=== PATIENT | male | born 1970 | race Caucasian/White ===

== ENCOUNTER 2022-12-21 09:25 | Inpatient (IN) ==
--- NOTE | 2022-12-21 09:51 | Emergency Department Note ---
Impression & Plan Alcoholic hepatitis with ascites, Alcohol use disorder, Acute hyponatremia, Liver cirrhosis, Elevated INR ED Provider Note NAME: JIM NAJERA AGE: 52 SEX: M : 1970 ARRIVES VIA: Walk-In INFORMANT: Patient ED PROVIDER(S): Rick Garcia DO CHIEF COMPLAINT: abdominal pain HPI: Patient is a 52-year-old male who presents to the ER for abdominal pain. Pain has been present for the past 5 days. It is diffuse throughout his whole belly and feels like it is expanding and tight. He notes that he does drink about 2 4 Lagrange's a day. He denies any headache or change in vision. He notes that he has been turning yellow for the past 2 days. Denies any dysuria, urgency, or frequency he has never been diagnosed with anything in regards to his liver. PAST MEDICAL HISTORY:See Below PAST SURGICAL HISTORY:See Below FAMILY HISTORY:See Below SOCIAL HISTORY:See Below HOME MEDICATIONS:See Below ALLERGIES:See Below VITALS:See Below PHYSICAL EXAMINATION: GENERAL: Sitting up in bed, alert, well appearing, well nourished, no distress, non-toxic EYE EXAM: normal conjunctiva. Scleral icterus OROPHARYNX: mucous membranes are moist LUNGS: Clear to auscultation. Normal chest wall mechanics HEART: no murmurs, S1 normal and S2 normal ABDOMEN: abdomen soft, non-tender, normo-active bowel sounds, no masses, no rebound or guarding. SKIN: Jaundice throughout UPPER EXTREMITIES: upper extremities are grossly normal. LOWER EXTREMITIES: No pitting edema. NEURO EXAM: Normal sensorium, cranial nerves II-XII grossly intact, normal speech, no gross weakness of arms, no gross weakness of legs. MEDICAL DECISION MAKING: Patient is a 52-year-old male who presents ER for the above-stated complaint. IV was established blood work was obtained. Labs show mild leukocytosis of 14,000. No significant anemia. INR at 2.1. BMP with a hyponatremia at 124. Potassium at 3.4. Lactate was elevated 2.7. Pro-Tremaine at 1.3. Patient has a complete benign abdominal exam. CT abdomen pelvis shows cirrhosis. MELD is elevated in the 30s. Patient was updated at bedside. Last drink was about 2 to 3 days ago. He was discussed with Dr. Bharat Hayes for further evaluation management and treatment. No acute obstruction on CT. Triage Nursing notes reviewed. Limited review of prior medical records performed Vital Signs: reviewed and remarkable for tachy Differential diagnosis: Differential diagnoses includes but is not limited to gastritis, peptic ulcer disease, GERD, gallbladder disease, pancreatitis, small bowel obstruction, appendicitis, diverticulitis, hernia, urinary tract infection, torsion, perforation, trauma, infectious. ER treatment provided: See below Diagnostics interpreted by me include EKG and cardiac monitoring as listed below: -Cardiac Monitoring: An order was placed for continuous cardiac monitoring. The monitor shows a rate of 101 with sinus rhythm. -ECG: none -Laboratory studies:Interpreted by me as stated above in MDM and shown below. Imaging studies: Xrays: As interpreted by me: Portable AP upright 1 view of the chest shows no pneumonia CTs show: CT abdomen pelvis shows no acute pathology per radiology Consultation(s): As described in MDM Procedures:none Critical Care: None Past Med/Surg History Medical History (Updated 12/21/22 @ 13:38 by Rick Garcia DO) No pertinent family history No pertinent past medical history Surgical History (Updated 12/21/22 @ 12:02 by Bharat Hayes MD) No pertinent past surgical history Social History Smoking Status: Unknown if ever smoked Preferred Language: Ukrainian Feels Safe at Home: Yes Allergies Allergies Allergy/AdvReac Type Severity Reaction Status Date / Time No Known Allergies Allergy Unverified 12/21/22 11:18 Home Meds Home Medications Medication Instructions Recorded Confirmed naproxen sodium 220 mg tablet 220 mg PO DAILY Keep pain away 12/21/22 12/21/22 (Aleve) Results & Data (ED) Vital Signs Vital Signs - 24 hr 12/21/22 09:26 12/21/22 10:11 12/21/22 10:11 Temperature 36.7 C Temperature Source Temporal Artery Scan Pulse Rate 118 H Pulse Rate [Apical] 110 H Pulse Rate from SpO2 Sensor Respiratory Rate 18 17 16 Respiratory Effort / Characteristics Non-Labored Spontaneous Respiratory Depth Normal Respiratory Pattern Regular Blood Pressure 139/84 Blood Pressure [Left Arm] 120/87 Blood Pressure Mean 102 Blood Pressure Mean [Left Arm] 98 Pulse Oximetry 97 96 96 Oxygen Delivery Method Room Air Room Air Room Air Sepsis Recent Fever Within 48 Hours No Sepsis New/Unexplained Change in Mental Status No Sepsis Action Taken by Nursing No Action Required 12/21/22 10:04 12/21/22 10:10 12/21/22 10:20 Temperature Temperature Source Pulse Rate 118 H Pulse Rate [Apical] Pulse Rate from SpO2 Sensor 117 H 109 H 107 H Respiratory Rate 21 15 20 Respiratory Effort / Characteristics Respiratory Depth Respiratory Pattern Blood Pressure Blood Pressure [Left Arm] Blood Pressure Mean Blood Pressure Mean [Left Arm] Pulse Oximetry 97 95 95 Oxygen Delivery Method Sepsis Recent Fever Within 48 Hours Sepsis New/Unexplained Change in Mental Status Sepsis Action Taken by Nursing 12/21/22 10:30 12/21/22 10:40 12/21/22 10:54 Temperature Temperature Source Pulse Rate 108 H 110 H Pulse Rate [Apical] Pulse Rate from SpO2 Sensor 104 H 107 H 110 H Respiratory Rate 19 19 15 Respiratory Effort / Characteristics Respiratory Depth Respiratory Pattern Blood Pressure Blood Pressure [Left Arm] Blood Pressure Mean Blood Pressure Mean [Left Arm] Pulse Oximetry 94 95 97 Oxygen Delivery Method Sepsis Recent Fever Within 48 Hours Sepsis New/Unexplained Change in Mental Status Sepsis Action Taken by Nursing 12/21/22 11:00 12/21/22 11:10 12/21/22 11:12 Temperature Temperature Source Pulse Rate 109 H 105 H Pulse Rate [Apical] Pulse Rate from SpO2 Sensor 109 H 105 H Respiratory Rate 23 23 Respiratory Effort / Characteristics Respiratory Depth Respiratory Pattern Blood Pressure 119/81 Blood Pressure [Left Arm] Blood Pressure Mean 95 Blood Pressure Mean [Left Arm] Pulse Oximetry 95 95 Oxygen Delivery Method Sepsis Recent Fever Within 48 Hours Sepsis New/Unexplained Change in Mental Status Sepsis Action Taken by Nursing 12/21/22 11:12 12/21/22 11:20 12/21/22 13:05 Temperature Temperature Source Pulse Rate 104 H 104 H 104 H Pulse Rate [Apical] Pulse Rate from SpO2 Sensor 99 H 105 H Respiratory Rate 15 19 Respiratory Effort / Characteristics Respiratory Depth Respiratory Pattern Blood Pressure Blood Pressure [Left Arm] Blood Pressure Mean Blood Pressure Mean [Left Arm] Pulse Oximetry 95 95 Oxygen Delivery Method Sepsis Recent Fever Within 48 Hours Sepsis New/Unexplained Change in Mental Status Sepsis Action Taken by Nursing Laboratory Data 12/21/22 10:00 12/21/22 10:00 Lab Results 12/21/22 12/21/22 12/21/22 Range/Units 10:00 10:00 10:00 WBC 14.85 H (4.8-10.8) K/ul RBC 3.18 L (4.70-6.10) M/uL Hgb 13.2 L (14.0-18.0) g/dl POC Hgb (14.0-18.0) g/dl Hct 35.2 L (42.0-52.0) % POC Hct (42-52) % MCV 110.7 H (80.0-100.0) fL MCH 41.5 H (25.0-34.0) pg MCHC 37.5 H (32.0-36.0) g/dL RDW Std Deviation 64.4 H (36.4-46.3) fL RDW Coeff of Rohan 15.6 H (11.5-14.5) % Plt Count 170 (130-400) K/uL MPV 11.5 (9.4-12.4) fL Immature Gran % (Auto) 0.8 % Neut % (Auto) 83.4 % Lymph % (Auto) 5.7 % [place] % (Auto) 8.8 % Eos % (Auto) 0.9 % Baso % (Auto) 0.4 % Neut # (Auto) 12.40 H (1.40-6.50) K/uL Lymph # (Auto) 0.84 L (1.2-3.4) K/uL [place] # (Auto) 1.30 H (0.11-0.59) K/uL Eos # (Auto) 0.13 (0-0.50) K/uL Baso # (Auto) 0.06 (0-0.2) K/uL Immature Gran # (Auto) 0.12 (0.01-0.20) K/uL Macrocytosis Present PT 22.2 H (9.0-12.0) Seconds INR 2.1 H (0.9-1.1) APTT 34.0 H (21.0-31.0) Seconds PTT Ratio 1.2 POC Sodium (135-144) mmol/L Sodium 124 L (136-145) mmol/L POC Potassium (3.3-5.0) mmol/L Potassium 3.4 L (3.5-5.1) mmol/L POC Chloride (101-112) mmol/L Chloride 92 L (98-107) mmol/L Carbon Dioxide 22 (21-32) mmol/L POC Total CO2 (24-31) mmol/L Anion Gap 10 (3-11) POC Anion Gap (16-25) mmol/L POC BUN (7-18) mg/dl BUN 23 (6-23) mg/dl Creatinine 1.36 (0.6-1.4) mg/dl POC Creatinine (0.6-1.3) mg/dl Est Cr Clr Drug Dosing 83.2 ml/min Est GFR ( Amer) 68.4 ml/min Est GFR (Non-Af Amer) 59.0 ml/min BUN/Creatinine Ratio 16.9 (10-20) Glucose 113 H (70-99(Fasting)) mg/dl POC Glucose (other) (70-99) mg/dl Lactate (0.4-2.0) mmol/L Calcium 8.1 L (8.6-10.3) mg/dl POC Ioniz Calcium Ernst (1.12-1.32) mmol/l Total Bilirubin 21.6 H (0.2-1.0) mg/dl AST 117 H (13-39) U/L ALT 37 (7-52) U/L Alkaline Phosphatase 116 H (34-104) U/L Troponin I High Sens 11.9 (0-20) pg/ml B-Natriuretic Peptide (0-100) pg/ml Total Protein 5.7 L (6.0-8.3) gm/dl Albumin 2.4 L (3.4-5.0) gm/dl Globulin 3.3 (2.5-4.0) gm/dl Albumin/Globulin Ratio 0.7 L (0.9-2) Lipase TNP SARS-CoV-2, RNA, NAAT (NEGATIVE) 12/21/22 12/21/22 12/21/22 Range/Units 10:00 10:00 10:05 WBC (4.8-10.8) K/ul RBC (4.70-6.10) M/uL Hgb (14.0-18.0) g/dl POC Hgb 15.0 (14.0-18.0) g/dl Hct (42.0-52.0) % POC Hct 44 (42-52) % MCV (80.0-100.0) fL MCH (25.0-34.0) pg MCHC (32.0-36.0) g/dL RDW Std Deviation (36.4-46.3) fL RDW Coeff of Rohan (11.5-14.5) % Plt Count (130-400) K/uL MPV (9.4-12.4) fL Immature Gran % (Auto) % Neut % (Auto) % Lymph % (Auto) % [place] % (Auto) % Eos % (Auto) % Baso % (Auto) % Neut # (Auto) (1.40-6.50) K/uL Lymph # (Auto) (1.2-3.4) K/uL [place] # (Auto) (0.11-0.59) K/uL Eos # (Auto) (0-0.50) K/uL Baso # (Auto) (0-0.2) K/uL Immature Gran # (Auto) (0.01-0.20) K/uL Macrocytosis PT (9.0-12.0) Seconds INR (0.9-1.1) APTT Cancelled (21.0-31.0) Seconds PTT Ratio Cancelled POC Sodium 127 L (135-144) mmol/L Sodium (136-145) mmol/L POC Potassium 3.4 (3.3-5.0) mmol/L Potassium (3.5-5.1) mmol/L POC Chloride 92 L (101-112) mmol/L Chloride (98-107) mmol/L Carbon Dioxide (21-32) mmol/L POC Total CO2 23 L (24-31) mmol/L Anion Gap (3-11) POC Anion Gap 16.0 (16-25) mmol/L POC BUN 21 H (7-18) mg/dl BUN (6-23) mg/dl Creatinine (0.6-1.4) mg/dl POC Creatinine 1.2 (0.6-1.3) mg/dl Est Cr Clr Drug Dosing ml/min Est GFR ( Amer) ml/min Est GFR (Non-Af Amer) ml/min BUN/Creatinine Ratio (10-20) Glucose (70-99(Fasting)) mg/dl POC Glucose (other) 114 H (70-99) mg/dl Lactate (0.4-2.0) mmol/L Calcium (8.6-10.3) mg/dl POC Ioniz Calcium Ernst 0.97 L (1.12-1.32) mmol/l Total Bilirubin (0.2-1.0) mg/dl AST (13-39) U/L ALT (7-52) U/L Alkaline Phosphatase (34-104) U/L Troponin I High Sens (0-20) pg/ml B-Natriuretic Peptide 18 (0-100) pg/ml Total Protein (6.0-8.3) gm/dl Albumin (3.4-5.0) gm/dl Globulin (2.5-4.0) gm/dl Albumin/Globulin Ratio (0.9-2) Lipase SARS-CoV-2, RNA, NAAT (NEGATIVE) 12/21/22 12/21/22 Range/Units 12:24 12:25 WBC (4.8-10.8) K/ul RBC (4.70-6.10) M/uL Hgb (14.0-18.0) g/dl POC Hgb (14.0-18.0) g/dl Hct (42.0-52.0) % POC Hct (42-52) % MCV (80.0-100.0) fL MCH (25.0-34.0) pg MCHC (32.0-36.0) g/dL RDW Std Deviation (36.4-46.3) fL RDW Coeff of Rohan (11.5-14.5) % Plt Count (130-400) K/uL MPV (9.4-12.4) fL Immature Gran % (Auto) % Neut % (Auto) % Lymph % (Auto) % [place] % (Auto) % Eos % (Auto) % Baso % (Auto) % Neut # (Auto) (1.40-6.50) K/uL Lymph # (Auto) (1.2-3.4) K/uL [place] # (Auto) (0.11-0.59) K/uL Eos # (Auto) (0-0.50) K/uL Baso # (Auto) (0-0.2) K/uL Immature Gran # (Auto) (0.01-0.20) K/uL Macrocytosis PT (9.0-12.0) Seconds INR (0.9-1.1) APTT (21.0-31.0) Seconds PTT Ratio POC Sodium (135-144) mmol/L Sodium (136-145) mmol/L POC Potassium (3.3-5.0) mmol/L Potassium (3.5-5.1) mmol/L POC Chloride (101-112) mmol/L Chloride (98-107) mmol/L Carbon Dioxide (21-32) mmol/L POC Total CO2 (24-31) mmol/L Anion Gap (3-11) POC Anion Gap (16-25) mmol/L POC BUN (7-18) mg/dl BUN (6-23) mg/dl Creatinine (0.6-1.4) mg/dl POC Creatinine (0.6-1.3) mg/dl Est Cr Clr Drug Dosing ml/min Est GFR ( Amer) ml/min Est GFR (Non-Af Amer) ml/min BUN/Creatinine Ratio (10-20) Glucose (70-99(Fasting)) mg/dl POC Glucose (other) (70-99) mg/dl Lactate 2.7 H* (0.4-2.0) mmol/L Calcium (8.6-10.3) mg/dl POC Ioniz Calcium Ernst (1.12-1.32) mmol/l Total Bilirubin (0.2-1.0) mg/dl AST (13-39) U/L ALT (7-52) U/L Alkaline Phosphatase (34-104) U/L Troponin I High Sens (0-20) pg/ml B-Natriuretic Peptide (0-100) pg/ml Total Protein (6.0-8.3) gm/dl Albumin (3.4-5.0) gm/dl Globulin (2.5-4.0) gm/dl Albumin/Globulin Ratio (0.9-2) Lipase SARS-CoV-2, RNA, NAAT NEGATIVE (NEGATIVE) Administered Medications Discontinued Medications Phytonadione 10 mg/ Dextrose 51 mls @ 102 mls/hr IV ONE ONE Stop: 12/21/22 12:29 Last Infusion: 12/21/22 13:13 Dose: 0 mls/hr Documented By: Admin: 12/21/22 12:33 Dose: 102 mls/hr Documented By: JEFF Pantoprazole Sodium 40 mg/ (Syringe) 10 mls @ 5 mls/min IV NOW STA Stop: 12/21/22 12:12 Last Admin: 12/21/22 12:33 Dose: 5 mls/min Documented By: JEFF Ioversol (Optiray 320 100ml) 94 ml IV ONCE ONE Stop: 12/21/22 10:57 Last Admin: 12/21/22 10:48 Dose: 94 ml Documented By: KATHI Imaging Data Radiologist's Impression: Abdomen/Pelvis CT 12/21/22 09:43 CT SCAN OF THE ABDOMEN AND PELVIS WITH IV CONTRAST CLINICAL HISTORY: Generalized abdominal pain. COMPARISON STUDY: No priors. TECHNIQUE: Following the IV administration of 94 cc of Optiray 320, CT scan of the abdomen and pelvis is performed from the lung bases to the proximal femora. Images are reviewed in the axial, sagittal, and coronal planes. IV contrast was administered without complication. A dose lowering technique was utilized adhering to the principles of ALARA. CT DOSE: 1640.84 mGy.cm FINDINGS: Lung bases: The heart is top normal in size and without pericardial effusion. There are scattered coronary artery calcifications. The lung bases are clear noting bibasilar scarring/atelectasis. There is a small hiatal hernia. Esopha geal varices are noted. Liver: The contrast-enhanced liver is enlarged, measuring 23.6 cm in length. Attenuation is diminished and markedly heterogeneous indicating steatosis. Morphology is cirrhotic, with hypertrophy of the left lobe and nodularity of the surface contour. There is no intrahepatic biliary ductal dilatation. The hepatic veins and portal veins are patent. Gallbladder: There is nonspecific gallbladder wall thickening and hyperemia, likely related to cirrhosis and ascites. There is no CT evidence of acute cholecystitis. Spleen: The spleen is enlarged, measuring 16.3 cm in length. There are splenic varices, as well as a splenorenal shunt. Pancreas: Unremarkable. Adrenal glands: Unremarkable. Kidneys: The contrast enhanced kidneys are normal in size and without hydronephrosis. The kidneys enhance symmetrically. There is a 3 mm nonobstructing right renal calculus. Abdominal vasculature: The abdominal aorta is normal in course and caliber. Bowel: There is no bowel obstruction. Submucosal fat deposition throughout the colon is nonspecific and has been described in the setting of chronic inflammation. The appendix is well visualized and normal. Peritoneum: There is a small to moderate volume of abdominopelvic ascites. No intraperitoneal free air is seen. Lymphadenopathy: None. Pelvic viscera: The prostate gland is diminutive and heterogeneous. The bladder is decompressed and grossly unremarkable. Skeletal structures: No lytic or blastic lesions are seen. Mild lumbosacral spondylosis is observed. There is a left hemitransitional lumbosacral segment. IMPRESSION: 1. The liver is enlarged, markedly heterogeneous, and cirrhotic in morphology. 2. Hepatic heterogeneity likely represents extensive geographic steatosis. Correlate with serum AFP levels. If there is concern for neoplasm/underlying mass lesion a nonemergent/outpatient MRI of the liver could be considered for further assessment. 3. A [id number] volume of abdominopelvic ascites, esophageal varices, splenomegaly, perisplenic varices, and a splenorenal shunt indicate portal hypertension. 4. Gallbladder wall thickening and hyperemia is likely related to adjacent cirrhosis and ascites. There is no convincing CT evidence of acute cholecystitis . Correlate with clinical and laboratory findings. 5. Right-sided nephrolithiasis. 6. Additional findings as above. ACT 112: Negative or not required by law. Electronically signed by: Angelo Gutierrez M.D. 12/21/2022 11:09 AM Chest X-Ray 12/21/22 09:47 SINGLE VIEW CHEST CLINICAL HISTORY: Dyspnea FINDINGS: An AP, portable, upright chest radiograph is obtained. No prior studies are available for comparison at the time of dictation. The examination is degraded by portable technique and apical lordotic positioning. The card iomediastinal silhouette is top normal for projection. There is elevation of the right hemidiaphragm with associated atelectasis. The lungs and pleural spaces are otherwise clear. No pneumothorax is seen. The bony thorax is grossly intact. IMPRESSION: No active disease in the chest. ACT 112: Negative or not required by law. Electronically signed by: Angelo Gutierrez M.D. 12/21/2022 10:17 AM Discharge Plan Visit Data Chief Complaint: Abdominal Pain Stated Complaint: ABD PAIN, WEAKNESS,SOB ED Provider: Rick Garcia Discharge Problem: Alcoholic hepatitis with ascites, Alcohol use disorder, Acute hyponatremia, Liver cirrhosis, Elevated INR Forms Stand Alone Forms: My [employer] Prescriptions Prescriptions: No Action naproxen sodium [Aleve] 220 mg Tablet 220 mg PO DAILY Referrals Referrals: PCP,NO [Primary Care Provider] -
--- NOTE | 2022-12-21 10:18 | XRay Report ---
SINGLE VIEW CHEST CLINICAL HISTORY: Dyspnea FINDINGS: An AP, portable, upright chest radiograph is obtained. No prior studies are available for c omparison at the time of dictation. The examination is degraded by portable technique and apical lord otic positioning. The cardiomediastinal silhouette is top normal for projection. There is elevation o f the right hemidiaphragm with associated atelectasis. The lungs and pleural spaces are otherwise buster ar. No pneumothorax is seen. The bony thorax is grossly intact. IMPRESSION: No active disease in the chest. ACT 112: Negative or not required by law. Electronically signed by: Angelo Gutierrez M.D. 12/21/2022 10:17 AM
[2022-12-21 10:19] LABS: iSTAT Creatinine 1.2 mg/dl (0.6-1.3); iSTAT Ionized Calcium 0.97 mmol/l (1.12-1.32); iSTAT Potassium 3.4 mmol/L (3.3-5.0)
[2022-12-21 10:28] LABS: Basophils # (auto) 0.06 K/uL (0-0.2); Basophils % (auto) 0.4 %; Eosinophils # (auto) 0.13 K/uL (0-0.50); Eosinophils % (auto) 0.9 %; Hematocrit (blood only) 35.2 % (42.0-52.0); Hemoglobin 13.2 g/dl (14.0-18.0); Immature Granulocytes # (auto) 0.12 K/uL (0.01-0.20); Immature Granulocytes % (auto) 0.8 %; Lymphocytes # (auto) 0.84 K/uL (1.2-3.4); Lymphocytes % (auto) 5.7 %; Mean Corpuscular Hemoglobin 41.5 pg (25.0-34.0); Mean Corpuscular Hgb Conc 37.5 g/dL (32.0-36.0); Mean Corpuscular Volume 110.7 fL (80.0-100.0); Mean Platelet Volume 11.5 fL (9.4-12.4); Monocytes % (auto) 8.8 %; Neutrophils % (auto) 83.4 %; Platelet Count 170 K/uL (130-400); RDW Coefficient of Variation 15.6 % (11.5-14.5); RDW Standard Deviation 64.4 fL (36.4-46.3); Red Blood Count 3.18 M/uL (4.70-6.10); White Blood Count 14.85 K/ul (4.8-10.8)
[2022-12-21 10:44] LABS: Alanine Aminotransferase 37 U/L (7-52); Albumin Globulin Ratio 0.7 (0.9-2); Albumin Level 2.4 gm/dl (3.4-5.0); Alkaline Phosphatase 116 U/L (34-104); Anion Gap 10 (3-11); Aspartate Aminotransferase 117 U/L (13-39); BUN Creatinine Ratio 16.9 (10-20); Bilirubin,Total 21.6 mg/dl (0.2-1.0); Blood Urea Nitrogen 23 mg/dl (6-23); Calcium 8.1 mg/dl (8.6-10.3); Carbon Dioxide 22 mmol/L (21-32); Chloride 92 mmol/L (98-107); Creatinine Clr Calc Pharmacy 83.2 ml/min; Est GFR (African American) 68.4 ml/min; Globulin 3.3 gm/dl (2.5-4.0); Glucose 113 mg/dl (70-99(Fasting)); Potassium 3.4 mmol/L (3.5-5.1); Sodium 124 mmol/L (136-145); Total Protein 5.7 gm/dl (6.0-8.3)
[2022-12-21 10:50] LABS: INR 2.1 (0.9-1.1); Prothrombin Time 22.2 Seconds (9.0-12.0)
[2022-12-21] MEDS ORDERED: OPTIRAY 320 100ml IV ONE (10:56)
[2022-12-21 11:01] LABS: Macrocytosis Present
--- NOTE | 2022-12-21 11:11 | CT Scan Report ---
CT SCAN OF THE ABDOMEN AND PELVIS WITH IV CONTRAST CLINICAL HISTORY: Generalized abdominal pain. COMPARISON STUDY: No priors. TECHNIQUE: Following the IV administration of 94 cc of Optiray 320, CT scan of the abdomen and pelvi s is performed from the lung bases to the proximal femora. Images are reviewed in the axial, sagittal , and coronal planes. IV contrast was administered without complication. A dose lowering technique wa s utilized adhering to the principles of ALARA. CT DOSE: 1640.84 mGy.cm FINDINGS: Lung bases: The heart is top normal in size and without pericardial effusion. There are scattered cor onary artery calcifications. The lung bases are clear noting bibasilar scarring/atelectasis. There is a small hiatal hernia. Esophageal varices are noted. Liver: The contrast-enhanced liver is enlarged, measuring 23.6 cm in length. Attenuation is diminishe d and markedly heterogeneous indicating steatosis. Morphology is cirrhotic, with hypertrophy of the l eft lobe and nodularity of the surface contour. There is no intrahepatic biliary ductal dilatation. T he hepatic veins and portal veins are patent. Gallbladder: There is nonspecific gallbladder wall thickening and hyperemia, likely related to cirrho sis and ascites. There is no CT evidence of acute cholecystitis. Spleen: The spleen is enlarged, measuring 16.3 cm in length. There are splenic varices, as well as a splenorenal shunt. Pancreas: Unremarkable. Adrenal glands: Unremarkable. Kidneys: The contrast enhanced kidneys are normal in size and without hydronephrosis. The kidneys enh ance symmetrically. There is a 3 mm nonobstructing right renal calculus. Abdominal vasculature: The abdominal aorta is normal in course and caliber. Bowel: There is no bowel obstruction. Submucosal fat deposition throughout the colon is nonspecific a nd has been described in the setting of chronic inflammation. The appendix is well visualized and nor mal. Peritoneum: There is a small to moderate volume of abdominopelvic ascites. No intraperitoneal free ai r is seen. Lymphadenopathy: None. Pelvic viscera: The prostate gland is diminutive and heterogeneous. The bladder is decompressed and g rossly unremarkable. Skeletal structures: No lytic or blastic lesions are seen. Mild lumbosacral spondylosis is observed. There is a left hemitransitional lumbosacral segment. IMPRESSION: 1. The liver is enlarged, markedly heterogeneous, and cirrhotic in morphology. 2. Hepatic heterogeneity likely represents extensive geographic steatosis. Correlate with serum AFP l marya. If there is concern for neoplasm/underlying mass lesion a nonemergent/outpatient MRI of the li weston could be considered for further assessment. 3. A [id number] volume of abdominopelvic ascites, esophageal varices, splenomegaly, perispleni c varices, and a splenorenal shunt indicate portal hypertension. 4. Gallbladder wall thickening and hyperemia is likely related to adjacent cirrhosis and ascites. The re is no convincing CT evidence of acute cholecystitis. Correlate with clinical and laboratory findin gs. 5. Right-sided nephrolithiasis. 6. Additional findings as above. ACT 112: Negative or not required by law. Electronically signed by: Angelo Gutierrez M.D. 12/21/2022 11:09 AM
[2022-12-21 11:19] LABS: Troponin I High Sensitivity 11.9 pg/ml (0-20)
--- NOTE | 2022-12-21 11:45 | History & Physical Report ---
Date of Service December 21, 2022 Assessment & Plan (1) Alcoholic hepatitis with ascites: Plan: Alexblaise's discriminant function 68.5, poor prognosis Discussed with Dr Yin regarding prednisolone and will make that decision once patient is seen Pantoprazole 40mg IV for epigastric pain Consult gastroenterology (2) Liver cirrhosis: Plan: No family history. Presumably due to alcohol use MELD 33, 58.1% 90 day survival, although suspect this is somewhat an overestimate given he is in acute hepatitis stage AFP, ferritin, iron studies, CARLOS ENRIQUE, AMA, Anti-SM, ceruloplasmin, acute hepatitis panel, alcohol level (3) Alcohol use disorder: Plan: No symptoms/signs of withdrawal - last alcohol drink 5-6 days ago per patient. Alcohol level pending (4) Acute hyponatremia: Plan: Mild hypervolemia on exam. Will start on Lasix 20mg PO daily and spironolactone 25mg PO daily to help with ascites. (5) Elevated INR: Plan: Vitamin K 10mg IV to revers any nutritional component Repeat INR in AM for more accurate ongoing MELD score (6) Epigastric pain: Plan: Suspect due to ascites but will give IV pantoprazole 40mg daily to help with any gastritis component given high alcohol and caffeine use (7) Hematochezia: Plan: Monitor CBC Plan VTE Prophylaxis - deferred pending treatmenr of INR as unclear if due to liver or nutritional problem on admission Diet - low Na Disposition - admit to med/tele Admission and Anticipated Discharge Date Admission Date: December 21, 2022 History of Present Illness Chief Complaint: Yellow skin Primary Care Provider: NO PCP Charles Donald is a 52 year old male with alcohol use disorder who presents to the ER due to fatigue, abdominal distention/pain, leg swelling, shortness of breath and jaundice. He reports symptoms started 5 days ago with al his symptoms getting progressively worse over the time. His father noticed his skin yellowing starting yesterday. The patient reports only now being able to walk 20-30 yards before becoming too short of breath. He denies any chest pain or palpitations. Takes Aleve intermittently for the abdominal pain (last took this 2 days ago). He has noticed some red blood in his stool yesterday but none today. Associated diarrhea and nausea on and off for the last 2 weeks. One episode of vomiting yesterday. He notes an long history of high alcohol consumption. Mainly of a 6 pack of beer daily. About 1-1.5 years ago he was drinking a bottle of whisky a day which he managed to give up 6-10 months ago. More recently he has been drinking 2 Four Raymundo's a day which he discontinued 5-6 days ago. He last went to alcohol re habilitation 5 years ago. Multiple previous episodes of alcohol withdrawal although he doesn't currently think he has any symptoms. No prior alcohol withdrawal seizures or ICU stays. No fever, chills, respiratory, gastrointestinal or urinary symptoms. Allergies Allergy/AdvReac Type Severity Reaction Status Date / Time No Known Allergies Allergy Unverified 12/21/22 11:18 Home Medications Medication Instructions Recorded Confirmed Type naproxen sodium 220 mg tablet 220 mg PO DAILY Keep pain away 12/21/22 12/21/22 History (Damian) Past Med/Surg History Medical History (Updated 12/22/22 @ 06:49 by Bharat Hayes MD) No pertinent family history No pertinent past medical history Surgical History (Updated 12/21/22 @ 12:02 by Bharat Hayes MD) No pertinent past surgical history Social History Smoking Status: Former smoker Hx Alcohol Use: Yes Alcohol type: beer, wine and hard liquor Hx Substance Use: No Preferred Language: Pashto Client Service Professional Required: No Beliefs That Will Affect Care: None Current Living Situation: Parent Feels Safe at Home: Yes Assistive Devices: Contacts Assistive Devices Comment: Reading glasses Review of Systems Review of Systems: All systems reviewed & are unremarkable except as noted in HPI & below Physical Exam Constitutional: well developed and + ill appearing; + not well nourished and no acute distress Eyes: PERRL; sclerae not anicteric ENMT: Mouth: oral mucous membranes not dry Neck: trachea midline, no thyromegaly Respiratory: normal respiratory effort, lungs clear to auscultation Cardiovascular: Rate/Rhythm: regular rate and regular rhythm Heart Sounds: no murmur Vessels: no JVD Extremities: normal capillary refill and + pedal edema (2+ b/l pedal edema to thigh); no calf tenderness Gastrointestinal (Abdomen): Inspection/Auscultation: + abdomen distended Percussion/Palpation: + abdomen tender (epigastric) and abdomen soft; no guarding and abdomen not rigid Musculoskeletal: no cyanosis or clubbing, extremities motor strength 5/5 Skin: + jaundice Neurologic: moves all extremities and awake; not confused Psychiatric: A+Ox3, euthymic affect Genitourinary: no CVA tenderness Results & Data Results & Data Vital Signs (Past 12 Hours) Vital Signs Temp Pulse Pulse Resp BP BP Pulse Ox 12/21/22 11:20 104 H 19 95 12/21/22 11:12 104 H 15 95 12/21/22 11:12 119/81 12/21/22 11:10 105 H 23 95 12/21/22 11:00 109 H 23 95 12/21/22 10:54 110 H 15 97 12/21/22 10:40 108 H 19 95 12/21/22 10:30 19 94 12/21/22 10:20 20 95 12/21/22 10:10 15 95 12/21/22 10:04 118 H 21 97 12/21/22 10:11 110 H 16 120/87 96 12/21/22 10:11 17 96 12/21/22 09:26 36.7 C 118 H 18 139/84 97 O2 Del Method 12/21/22 11:20 12/21/22 11:12 12/21/22 11:12 12/21/22 11:10 12/21/22 11:00 12/21/22 10:54 12/21/22 10:40 12/21/22 10:30 12/21/22 10:20 12/21/22 10:10 12/21/22 10:04 12/21/22 10:11 Room Air 12/21/22 10:11 Room Air 12/21/22 09:26 Room Air Laboratory Results Abnormal lab results 12/21/22 12/21/22 12/21/22 Range/Units 10:00 10:00 10:00 WBC 14.85 H (4.8-10.8) K/ul RBC 3.18 L (4.70-6.10) M/uL Hgb 13.2 L (14.0-18.0) g/dl Hct 35.2 L (42.0-52.0) % MCV 110.7 H (80.0-100.0) fL MCH 41.5 H (25.0-34.0) pg MCHC 37.5 H (32.0-36.0) g/dL RDW Std Deviation 64.4 H (36.4-46.3) fL RDW Coeff of Rohan 15.6 H (11.5-14.5) % Neut # (Auto) 12.40 H (1.40-6.50) K/uL Lymph # (Auto) 0.84 L (1.2-3.4) K/uL Talbot # (Auto) 1.30 H (0.11-0.59) K/uL PT 22.2 H (9.0-12.0) Seconds INR 2.1 H (0.9-1.1) POC Sodium (135-144) mmol/L Sodium 124 L (136-145) mmol/L Potassium 3.4 L (3.5-5.1) mmol/L POC Chloride (101-112) mmol/L Chloride 92 L (98-107) mmol/L POC Total CO2 (24-31) mmol/L POC BUN (7-18) mg/dl Glucose 113 H (70-99(Fasting)) mg/dl POC Glucose (other) (70-99) mg/dl Calcium 8.1 L (8.6-10.3) mg/dl POC Ioniz Calcium Ernst (1.12-1.32) mmol/l Total Bilirubin 21.6 H (0.2-1.0) mg/dl AST 117 H (13-39) U/L Alkaline Phosphatase 116 H (34-104) U/L Total Protein 5.7 L (6.0-8.3) gm/dl Albumin 2.4 L (3.4-5.0) gm/dl Albumin/Globulin Ratio 0.7 L (0.9-2) 12/21/22 Range/Units 10:05 WBC (4.8-10.8) K/ul RBC (4.70-6.10) M/uL Hgb (14.0-18.0) g/dl Hct (42.0-52.0) % MCV (80.0-100.0) fL MCH (25.0-34.0) pg MCHC (32.0-36.0) g/dL RDW Std Deviation (36.4-46.3) fL RDW Coeff of Rohan (11.5-14.5) % Neut # (Auto) (1.40-6.50) K/uL Lymph # (Auto) (1.2-3.4) K/uL Talbot # (Auto) (0.11-0.59) K/uL PT (9.0-12.0) Seconds INR (0.9-1.1) POC Sodium 127 L (135-144) mmol/L Sodium (136-145) mmol/L Potassium (3.5-5.1) mmol/L POC Chloride 92 L (101-112) mmol/L Chloride (98-107) mmol/L POC Total CO2 23 L (24-31) mmol/L POC BUN 21 H (7-18) mg/dl Glucose (70-99(Fasting)) mg/dl POC Glucose (other) 114 H (70-99) mg/dl Calcium (8.6-10.3) mg/dl POC Ioniz Calcium Ernst 0.97 L (1.12-1.32) mmol/l Total Bilirubin (0.2-1.0) mg/dl AST (13-39) U/L Alkaline Phosphatase (34-104) U/L Total Protein (6.0-8.3) gm/dl Albumin (3.4-5.0) gm/dl Albumin/Globulin Ratio (0.9-2) Diagnostic Findings SINGLE VIEW CHEST CLINICAL HISTORY: Dyspnea FINDINGS: An AP, portable, upright chest radiograph is obtained. No prior studies are available for comparison at the time of dictation. The examination is degraded by portable technique and apical lordotic positioning. The cardiomediastinal silhouette is top normal for projection. There is elevation of the right hemidiaphragm with associated atelectasis. The lungs and pleural spaces are otherwise clear. No pneumothorax is seen. The bony thorax is grossly intact. IMPRESSION: No active disease in the chest. CT SCAN OF THE ABDOMEN AND PELVIS WITH IV CONTRAST CLINICAL HISTORY: Generalized abdominal pain. COMPARISON STUDY: No priors. TECHNIQUE: Following the IV administration of 94 cc of Optiray 320, CT scan of the abdomen and pelvis is performed from the lung bases to the proximal femora. Images are reviewed in the axial, sagittal, and coronal planes. IV contrast was administered without complication. A dose lowering technique was utilized adhering to the principles of ALARA. CT DOSE: 1640.84 mGy.cm FINDINGS: Lung bases: The heart is top normal in size and without pericardial effusion. There are scattered coronary artery calcifications. The lung bases are clear noting bibasilar scarring/atelectasis. There is a small hiatal hernia. Esophageal varices are noted. Liver: The contrast-enhanced liver is enlarged, measuring 23.6 cm in length. Attenuation is diminished and markedly heterogeneous indicating steatosis. Morphology is cirrhotic, with hypertrophy of the left lobe and nodularity of the surface contour. There is no intrahepatic biliary ductal dilatation. The hepatic veins and portal veins are patent. Gallbladder: There is nonspecific gallbladder wall thickening and hyperemia, likely related to cirrhosis and ascites. There is no CT evidence of acute cholecystitis. Spleen: The spleen is enlarged, measuring 16.3 cm in length. There are splenic varices, as well as a splenorenal shunt. Pancreas: Unremarkable. Adrenal glands: Unremarkable. Kidneys: The contrast enhanced kidneys are normal in size and without hydronephrosis. The kidneys enhance symmetrically. There is a 3 mm nonobstructing right renal calculus. Abdominal vasculature: The abdominal aorta is normal in course and caliber. Bowel: There is no bowel obstruction. Submucosal fat deposition throughout the colon is nonspecific and has been described in the setting of chronic inflammation. The appendix is well visualized and normal. Peritoneum: There is a small to moderate volume of abdominopelvic ascites. No intraperitoneal free air is seen. Lymphadenopathy: None. Pelvic viscera: The prostate gland is diminutive and heterogeneous. The bladder is decompressed and grossly unremarkable. Skeletal structures: No lytic or blastic lesions are seen. Mild lumbosacral spondylosis is observed. There is a left hemitransitional lumbosacral segment. IMPRESSION: 1. The liver is enlarged, markedly heterogeneous, and cirrhotic in morphology. 2. Hepatic heterogeneity likely represents extensive geographic steatosis. Correlate with serum AFP levels. If there is concern for neoplasm/underlying mass lesion a nonemergent/outpatient MRI of the liver could be considered for further assessment. 3. A [id number] volume of abdominopelvic ascites, esophageal varices, splenomegaly, perisplenic varices, and a splenorenal shunt indicate portal hypertension. 4. Gallbladder wall thickening and hyperemia is likely related to adjacent cirrhosis and ascites. There is no convincing CT evidence of acute cholecystitis. Correlate with clinical and laboratory findings. 5. Right-sided nephrolithiasis. 6. Additional findings as above. Medications Administered ER Medications Given: None ECG Rate (beats per minute): 108 Rhythm: sinus tachycardia Findings: + PVC Comparison ECG Date: no prior available Code Status & VTE Plan Code Status Full VTE Prophylaxis Plan VTE Prophylaxis will be ordered: No PG Care Time/CCT Total # of Minutes Spent Total Time Spent with Patient: Total time spent is greater than 50% in coordination of care (as documented) at patient's floor/unit and/or counseling patient: Coding Level of Care Code 50627 INT INP/OBS CARE 375MIN Diagnoses Alcoholic hepatitis with ascites K70.11 Liver cirrhosis K74.60 Alcohol use disorder F10.90 Acute hyponatremia E87.1 Elevated INR R79.1 Epigastric pain R10.13 Hematochezia K92.1
[2022-12-21] MEDS ORDERED: PHYTONADIONE 10 MG in DEXTROSE 5% 50 ML IV ONE (12:00)
[2022-12-21] MEDS ORDERED: PANTOprazole 40 MG in SYRINGE 0 ML IV STA (12:11)
--- NOTE | 2022-12-21 12:34 | Electrocardiogram Report ---
Test Reason : Blood Pressure : / mmHG Vent. Rate : 108 BPM Atrial Rate : 108 BPM P-R Int : 184 ms QRS Dur : 086 ms QT Int : 346 ms P-R-T Axes : 049 013 045 degrees QTc Int : 463 ms Sinus tachycardia with occasional Premature ventricular complexes Low voltage QRS Borderline ECG No previous ECGs available Confirmed by Rahul Carter ([id number]) on 12/21/2022 12:33:59 PM Referred By: REFERRED SELF Confirmed By:Rahul Carter
[2022-12-21 13:24] LABS: Partial Thromboplastin Ratio 1.2
[2022-12-21 13:49] LABS: Ferritin 1176.5 ng/ml (8-388); Magnesium 2.5 mg/dl (1.7-2.4)
[2022-12-21 13:53] LABS: Iron 78 mcg/dl (35-175); Unsaturated Iron Binding Cap < 55 mcg/dl (155-355)
[2022-12-21 15:29] LABS: Appearance Urine Cloudy (Clear); Color Urine Orange
[2022-12-21 15:30] LABS: Specific Gravity Urine > 1.030 (1.000-1.030)
[2022-12-21 15:42] LABS: Amphetamines+Metham, Urine Neg (Neg); Barbiturates, Urine Neg (Neg); Benzodiazepine, Urine Neg (Neg); Cocaine, Urine Neg (Neg); MDMA (Ecstacy), Urine Neg (Neg); Methadone, Urine Neg (Neg); Opiate, Urine Neg (Neg); Phencyclidine, Urine Neg (Neg)
[2022-12-21 16:00] LABS: Bacteria Urine Negative (Negative); Epithelial Cell Urine >30 /lpf (0-5); RBC Urine 0-4 /hpf (0-4); WBC Urine >30 /hpf (0-5)
[2022-12-21] MEDS: SPIRONOLACTONE 25 MG TAB PO SCH (16:20)
[2022-12-21] MEDS: FUROSEMIDE 20 MG TAB PO SCH (16:20)
[2022-12-21 16:32] LABS: Adenovirus F 40/41 PCR Not Detected (NotDetected); Astrovirus PCR Not Detected (NotDetected); Campylobacter PCR Not Detected (NotDetected); Cryptosporidium PCR Not Detected (NotDetected); Cyclospora cayetanensis PCR Not Detected (NotDetected); Entamoeba histolytica PCR Not Detected (NotDetected); Enteroaggregative E.coli(EAEC) Not Detected (NotDetected); Enteropathogenic E.coli (EPEC) Not Detected (NotDetected); Enterotoxigenic E.coli (ETEC) Not Detected (NotDetected); Giardia lamblia PCR Not Detected (NotDetected); Norovirus GI/GII PCR Not Detected (NotDetected); Plesiomonas shigelloides PCR Not Detected (NotDetected); Rotavirus A PCR Not Detected (NotDetected); Salmonella PCR Not Detected (NotDetected); Sapovirus PCR Not Detected (NotDetected); Shiga-like Toxin E.coli (STEC) Not Detected (NotDetected); Shigella/Enteroinvasive E.coli Not Detected (NotDetected); Vibrio cholerae PCR Not Detected (NotDetected); Vibrio species PCR Not Detected (NotDetected); Yersinia enterocolitica PCR Not Detected (NotDetected)
[2022-12-21] MEDS: THIAMINE HCL 100 MG in SYRINGE 9 ML IV SCH (20:46)
[2022-12-21] MEDS: PANTOprazole 40 MG in SYRINGE 0 ML IV SCH (20:46)
[2022-12-22 06:41] LABS: Basophils # (auto) 0.04 K/uL (0-0.2); Basophils % (auto) 0.3 %; Eosinophils # (auto) 0.17 K/uL (0-0.50); Eosinophils % (auto) 1.2 %; Hematocrit (blood only) 29.7 % (42.0-52.0); Hemoglobin 11.2 g/dl (14.0-18.0); Immature Granulocytes # (auto) 0.11 K/uL (0.01-0.20); Immature Granulocytes % (auto) 0.8 %; Lymphocytes # (auto) 1.08 K/uL (1.2-3.4); Lymphocytes % (auto) 7.4 %; Mean Corpuscular Hgb Conc 37.7 g/dL (32.0-36.0); Mean Corpuscular Volume 108.8 fL (80.0-100.0); Mean Platelet Volume 11.5 fL (9.4-12.4); Monocytes # (auto) 1.17 K/uL (0.11-0.59); Neutrophils # (auto) 11.98 K/uL (1.40-6.50); Neutrophils % (auto) 82.3 %; Platelet Count 151 K/uL (130-400); RDW Coefficient of Variation 15.6 % (11.5-14.5); RDW Standard Deviation 62.5 fL (36.4-46.3); Red Blood Count 2.73 M/uL (4.70-6.10); White Blood Count 14.55 K/ul (4.8-10.8)
[2022-12-22 07:05] LABS: Albumin Globulin Ratio 0.7 (0.9-2); BUN Creatinine Ratio 18.8 (10-20); Calcium 7.7 mg/dl (8.6-10.3); Creatinine Clr Calc Pharmacy 66.6 ml/min; Est GFR (African American) 52.2 ml/min; Globulin 2.7 gm/dl (2.5-4.0); Potassium 3.7 mmol/L (3.5-5.1); Total Protein 4.7 gm/dl (6.0-8.3)
[2022-12-22 07:21] LABS: INR 1.8 (0.9-1.1); Prothrombin Time 19.3 Seconds (9.0-12.0)
[2022-12-22 07:24] LABS: Vitamin B12 > 1500 pg/ml (180-914)
[2022-12-22] MEDS: SPIRONOLACTONE 25 MG TAB PO SCH (09:57)
[2022-12-22] MEDS: FUROSEMIDE 20 MG TAB PO SCH (09:57)
[2022-12-22] MEDS: PANTOprazole 40 MG in SYRINGE 0 ML IV SCH (09:58)
[2022-12-22] MEDS: THIAMINE HCL 100 MG in SYRINGE 9 ML IV SCH (09:58)
--- NOTE | 2022-12-22 11:09 | Gastrointestinal Consultation ---
Date of Consultation December 22, 2022 Assessment & Plan (1) Acute liver failure: (2) Liver cirrhosis: (3) Alcoholic hepatitis: Plan -Continue to trend DF & MELD scores. Would obtain a CMP & PT/INR daily. -Glucocorticoids deferred at present. -Labs have improved from yesterday. If worsening/not improving, would need to transfer to a tertiary center for acute hepatology/transplant needs. -Patient should be provided with resources for alcohol cessation. -Await infectious hepatitis serologies--may need outpatient immunization for hep A/B pending results. -Await autoimmune liver work-up--though this likely will not result during his hospitalization. -Patient will need an outpatient hepatology team upon discharge. He will need outpatient EGD, AFP, HCC surveillance, and further ongoing hepatology needs. -Would advise a 2 gm sodium-restricted diet. -Ensure patient is moving his bowels regularly. No signs of HE at present. -Avoid NSAIDs. Would limit Tylenol use to <2000 mg daily divided in q 6 hour dosing. Supervising Physician Co-Signing Physician Notes Discussed case in detail and agree with Assessment and plan as per UMAIR Bhatia as noted above Abd: Soft, Distended, +BS Advised patient to avoid all alcohol as it is a known liver toxin He is not currently interested in inpatient or outpatient rehab Continue current therapy and supportive care History of Present Illness Reason for Consultation: Acute liver failure Attending Physician: Freedom Sanches History of Present Illness Patient is a 52 yo male with PMH of significant alcohol abuse. We do not have records of previous labs, testing, medical visits. He presented to the ED due to concerns of worsening jaundice. Upon admission he was noted to have acute liver failure with an INR of 2.1, MELD approaching 40 and DF of 70. The patient notes he quit consuming alcohol 5 days ago. He denies any withdrawal symptoms. He notes heavy consumption of 2 twenty four oz cans of Four Raymundo each evening (14% ABV, one 24 oz can is the equivalent of 5.5 malt liquor beverages). He notes that his father noticed his jaundice first. He denies other medical issues in the past. No known family history of liver disease. Acetaminophen level in ED negative. INR initially 2.1, now 1.8. T bili was 21.6 and now 20.0 this AM. AST currently 101, ALT 34. Alk phos 106. Ammonia 39. MCV 108.8. WBC 14.55. H/H 11.2/29.7. CT abdomen/pelvis indicates cirrhotic appearing liver, splenorenal shunting, esophageal and perisplenic varices, portal HTN. Today's MELD is 33 with a 52.6% estimated total mortality risk. DF is about 54 this AM. Both of these values are improved from 12/21/22. He is not presently on glucocorticoid therapy. CARLOS ENRIQUE, AMA, ASMA pending along with infectious hepatitis A, B, C testing. Patient notes he is physically feeling stronger today and notices improvement in his jaundice. Allergies Allergy/AdvReac Type Severity Reaction Status Date / Time No Known Allergies Allergy Unverified 12/21/22 11:18 Home Medications Medication Instructions Recorded Confirmed Type naproxen sodium 220 mg tablet 220 mg PO DAILY Keep pain away 12/21/22 12/21/22 History (Damian) Patient History Medical History No pertinent family history No pertinent past medical history Surgical History No pertinent past surgical history Social History Smoking Status: Former smoker Hx Alcohol Use: Yes Alcohol type: beer, wine and hard liquor Hx Substance Use: No Preferred Language: Mongolian Communication Ability: Effective Leadership Development Manager Required: No Beliefs That Will Affect Care: None Current Living Situation: Parent Feels Safe at Home: Yes Assistive Devices: None Assistive Devices Comment: Reading glasses Review of Systems Constitutional: + fatigue; no fever and no chills Respiratory: no cough and no dyspnea Cardiovascular: no chest pain Gastrointestinal: no abdominal pain, no nausea, no vomiting, no hematemesis, no change in bowel habits, no blood in stools and no melena Musculoskeletal: no problem reported Integumentary: + yellowing of the skin Psychiatric: no problem reported Hematologic / Lymphatic: no unexplained weight loss Physical Exam Constitutional: WD/WN, vitals as above Respiratory: normal respiratory effort Cardiovascular: Rate/Rhythm: regular rate Gastrointestinal (Abdomen): normal bowel sounds, soft, nontender, no hepatosplenomegaly Musculoskeletal: Head/Neck/Chest: normocephalic Psychiatric: Orientation: alert and oriented x 3 Results & Data Vital Signs (Past 12 Hours) Vital Signs Temp Pulse Pulse Resp BP Pulse Ox O2 Del Method 12/22/22 07:10 36.5 C 102 H 16 108/68 94 Room Air 12/22/22 03:00 36.6 C 96 H 18 120/75 95 Room Air 12/22/22 00:00 111 H PG Care Time/CCT Total # of Minutes Spent Total Time Spent with Patient: Total time spent is greater than 50% in coordination of care (as documented) at patient's floor/unit and/or counseling patient: Coding Level of Care Code 84545 IN/OBS CONSULT LVL 4,60M Diagnoses Acute liver failure K72.00 Liver cirrhosis K74.60 Alcoholic hepatitis K70.10
[2022-12-22] MEDS: PANTOprazole 40 MG TAB PO SCH (20:41)
--- NOTE | 2022-12-22 22:41 | Hospitalist Progress Note ---
Date of Service December 22, 2022 Assessment & Plan (1) Alcoholic hepatitis with ascites: Plan: Maddrey's discriminant function 68.5, poor prognosis Discussed with Dr Yin regarding prednisolone and will make that decision once patient is seen Pantoprazole 40mg IV for epigastric pain Consult gastroenterology: appreciate input. Likely no role at this moment to transfer patient to tertiary center as patient currently is not a transplant candidate given recent alcohol use. [facility] also likely will not have an emergent liver waiting for him. Patient will need to abstain from alachol at least 6 months. Will continue to monitor his PT/INR bilirrubin while he is here. GI recommends to hold off prednisolone unless his Maddrey score remains elevated. Will order U/S paracenthesis study in AM: rule out Spontaneous bacterial peritonitis will also consider placing patient on spironolactone 50 mg and lasix 20 mg, depening on the presence of ascities Had extensive discussion with patient, he is not interested in going to AA meetings, but he will continue to abstain from alcohol. (2) Liver cirrhosis: Plan: No family history. Presumably due to alcohol use MELD 33, 58.1% 90 day survival, although suspect this is somewhat an overestimate given he is in acute hepatitis stage AFP, ferritin, iron studies, CARLOS ENRIQUE, AMA, Anti-SM, ceruloplasmin, acute hepatitis panel, alcohol level (3) Alcohol use disorder: Plan: No symptoms/signs of withdrawal - last alcohol drink 5-6 days ago per patient. (4) Acute hyponatremia: Plan: Mild hypervolemia on exam. Will start on Lasix 20mg PO daily and spironolactone 25mg PO daily to help with ascites. (5) Elevated INR: Plan: Vitamin K 10mg IV to revers any nutritional component continue to calculate daily MELD score (6) Epigastric pain: Plan: Suspect due to ascites but will give IV pantoprazole 40mg daily to help with any gastritis component given high alcohol and caffeine use (7) Hematochezia: Plan: Monitor CBC Plan VTE Prophylaxis - deferred pending treatmenr of INR as unclear if due to liver or nutritional problem on admission Diet - low Na Disposition - admit to med/tele Admission and Anticipated Discharge Date Admission Date: December 21, 2022 Subjective Patient reports feeling better. He states he has been slowly titrating off the alcohol, and has not been drinking for 5 days now. He states he hates getting tremors when he stops drinking, which is why he decided on slowly cutting back on his own. Patient reports having some generalized abdominal discomfort. Review of Systems Review of Systems: All systems reviewed & are unremarkable except as noted in HPI & below Physical Exam Physical Exam: Constitutional: well developed and + ill appearing; + not well nourished and no acute distress Eyes: PERRL; sclerae not anicteric ENMT: Mouth: oral mucous membranes not dry Neck: trachea midline, no thyromegaly Respiratory: normal respiratory effort, lungs clear to auscultation Cardiovascular: Rate/Rhythm: regular rate and regular rhythm Heart Sounds: no murmur Vessels: no JVD Extremities: normal capillary refill and + pedal edema (2+ b/l pedal edema to thigh); no calf tenderness Gastrointestinal (Abdomen): Inspection/Auscultation: + abdomen distended Percussion/Palpation: + abdomen mildly tender (epigastric) and abdomen soft; no guarding and abdomen not rigid Musculoskeletal: no cyanosis or clubbing, extremities motor strength 5/5 Skin: + jaundice Neurologic: moves all extremities and awake; not confused Psychiatric: A+Ox3, euthymic affect Genitourinary: no CVA tenderness Results & Data Results & Data Vital Signs (Past 12 Hours) Vital Signs Temp Pulse Pulse Resp BP Pulse Ox Pulse Ox 12/22/22 19:14 36.6 C 102 H 18 126/77 94 12/22/22 14:01 104 H 12/22/22 18:54 96 12/22/22 15:00 36.6 C 89 18 108/69 89 L 12/22/22 11:49 12/22/22 11:00 36.6 C 105 H 18 120/76 94 O2 Del Method O2 Del Method 12/22/22 19:14 Room Air 12/22/22 14:01 12/22/22 18:54 Room Air 12/22/22 15:00 Room Air 12/22/22 11:49 Room Air 12/22/22 11:00 Room Air PG Care Time/CCT Total # of Minutes Spent Total Time Spent with Patient: Total time spent is greater than 50% in coordination of care (as documented) at patient's floor/unit and/or counseling patient: Coding Level of Care Code 13023 SUB INP/OBS CARE 3/50MIN Diagnoses Alcoholic hepatitis with ascites K70.11 Liver cirrhosis K74.60 Alcohol use disorder F10.90 Acute hyponatremia E87.1 Elevated INR R79.1 Epigastric pain R10.13 Hematochezia K92.1
[2022-12-23] MEDS: PANTOprazole 40 MG TAB PO SCH ×2 (07:55→20:14)
[2022-12-23] MEDS: THIAMINE HCL 100 MG TAB PO SCH (07:56)
[2022-12-23] MEDS: SPIRONOLACTONE 25 MG TAB PO SCH (07:56)
[2022-12-23] MEDS: FUROSEMIDE 20 MG TAB PO SCH (07:56)
[2022-12-23 08:27] LABS: AFP Tumor Marker Serum 3.4 ng/mL (<6.1); Anti Mitochondrial Antibody NEGATIVE (NEGATIVE); Anti Nuclear Antibody Screen NEGATIVE (NEGATIVE); Ceruloplasmin 24 mg/dL (18-36); HBSAG NON-REACTIVE (NON-REACTIVE); Hepatitis A Antibody IgM NON-REACTIVE (NON-REACTIVE); Hepatitis B Core Antibody IgM NON-REACTIVE (NON-REACTIVE); Smooth Muscle Antibody NEGATIVE (NEGATIVE)
[2022-12-23 09:48] LABS: Alanine Aminotransferase 40 U/L (7-52); Albumin Level 2.1 gm/dl (3.4-5.0); Alkaline Phosphatase 117 U/L (34-104); Anion Gap 7 (3-11); Aspartate Aminotransferase 117 U/L (13-39); BUN Creatinine Ratio 23.1 (10-20); Blood Urea Nitrogen 37 mg/dl (6-23); C Reactive Protein 3.72 mg/dl (0-0.5); Calcium 7.8 mg/dl (8.6-10.3); Carbon Dioxide 23 mmol/L (21-32); Chloride 92 mmol/L (98-107); Creatinine Clr Calc Pharmacy 70.8 ml/min; Est GFR (African American) 56.2 ml/min; Est GFR (Non-African American) 48.5 ml/min; Glucose 134 mg/dl (70-99(Fasting)); Potassium 3.8 mmol/L (3.5-5.1); Sodium 122 mmol/L (136-145); Total Protein 5.2 gm/dl (6.0-8.3)
[2022-12-23 09:49] LABS: INR 1.8 (0.9-1.1); Prothrombin Time 18.8 Seconds (9.0-12.0)
[2022-12-23 10:10] LABS: Hematocrit (blood only) 29.5 % (42.0-52.0); Mean Corpuscular Hgb Conc 37.3 g/dL (32.0-36.0); Mean Corpuscular Volume 107.3 fL (80.0-100.0); Mean Platelet Volume 10.6 fL (9.4-12.4); Platelet Count 125 K/uL (130-400); RDW Coefficient of Variation 15.8 % (11.5-14.5); RDW Standard Deviation 59.7 fL (36.4-46.3); Red Blood Count 2.75 M/uL (4.70-6.10); White Blood Count 13.55 K/ul (4.8-10.8)
[2022-12-23 10:12] LABS: Echinocytes 2+; Eosinophils # (auto) 0.15 K/uL (0-0.50); Eosinophils % (auto) 1.1 %; Immature Granulocytes # (auto) 0.15 K/uL (0.01-0.20); Immature Granulocytes % (auto) 1.1 %; Lymphocytes # (auto) 0.65 K/uL (1.2-3.4); Lymphocytes % (auto) 4.8 %; Monocytes % (auto) 6.6 %; Neutrophils % (auto) 86.4 %
[2022-12-23 10:19] LABS: Bilirubin Direct 14.5 mg/dl (0-0.2)
--- NOTE | 2022-12-23 10:24 | Communication Note ---
Date of Service: December 23, 2022 MELD today 33, DF 53.3 Paracentesis was ordered per primary team and is pending. Continue per recommendations on initial GI consult. Will need outpatient hepatology for further work-up/assessment and ongoing HCC monitoring. Alcohol abstinence has been emphasized during this admission.
[2022-12-23 13:09] LABS: Albumin Peritoneal Fluid < 1.5 gm/dl
[2022-12-23 13:15] LABS: Glucose Peritoneal Fluid 138 mg/dl; LDH Peritoneal Fluid 50 U/L; Lipase Peritoneal Fluid 93 U/L; Total Protein Peritoneal Fluid < 3.0 gm/dl
[2022-12-23 13:26] LABS: Appearance Peritoneal Fluid Hazy; Color Peritoneal Fluid Yellow; RBC Peritoneal Fluid Auto < 2000 /uL; WBC Peritoneal Fluid Auto 99 /ul (0-300)
--- NOTE | 2022-12-23 13:57 | Ultrasound Report ---
Ultrasound-guided diagnostic paracentesis INDICATION: Ascites PROCEDURE: Procedure and risks were explained. Informed consent was obtained. A final timeout was com pleted. The right abdomen was prepped and draped in sterile fashion. 1% buffered lidocaine was utiliz ed for skin anesthesia. Utilizing ultrasound guidance, a 5 [place] safety centesis catheter was advanced into the pocket of karmen finnegan. Ultrasound images were obtained. A total of 2.1 L of yellow ascites fluid was removed, with 1 L sent to the lab for analysis. The catheter was removed and Band-Aid applied. The patient tolerated the procedure well. Vital signs will be monitored postprocedure. IMPRESSION: Ultrasound-guided paracentesis as above. Performed, dictated, and signed by Benson Garza PA-C; to be co-signed by Dr. Kash Griffith. Electronically signed by: Kash Griffith M.D. 12/23/2022 2:10 PM
[2022-12-23 14:06] LABS: Basophils, Fluid 3 %; Eosinophils, Fluid 1 %; Lymphocytes, Fluid 25 %; Mono,Macrophage,Mesothelial 67 %; Neutrophils, Fluid 4 %
--- NOTE | 2022-12-23 15:32 | Hospitalist Progress Note ---
Date of Service December 23, 2022 Assessment & Plan (1) Alcoholic hepatitis with ascites: Plan: Alcoholic hepatitis with ascites CTA/P: 1. The liver is enlarged, markedly heterogeneous, and cirrhotic in morphology. 2. Hepatic heterogeneity likely represents extensive geographic steatosis. Correlate with serum AFP levels. If there is concern for neoplasm/underlying mass lesion a nonemergent/outpatient MRI of the liver could be considered for further assessment. 3. A [id number] volume of abdominopelvic ascites, esophageal varices, splenomegaly, perisplenic varices, and a splenorenal shunt indicate portal hypertension. 4. Gallbladder wall thickening and hyperemia is likely related to adjacent cirrhosis and ascites. There is no convincing CT evidence of acute cholecystitis. Correlate with clinical and laboratory findings. 5. Right-sided nephrolithiasis. 6. Additional findings as above. CXR: No acute findings - Paracentesis guided ultrasound performed 12/23. 2.1 L of yellow ascitic fluid was removed, 1 L sent for analysis. Peritoneal fluid: Low RBC, low albumin, LDH 50, glucose 138, lipase 93, 99 white blood cells (normal), 4% neutrophils. Inconsistent with SBP Maddrey discriminant function previously 68.5 on initial assessment with a poor prognosis. Repeat Maddrey function 55 points, remains with poor prognosis. --> Steriods deferred per GI. ?Prednisolone 40 mg daily if Maddrey remains >35 on 12/24 Leukocytosis of 13, slightly down trended Pro-Tremaine 1.65. PCT interpretation limited in the setting of severe liver disease/cirrhosis which can cause baseline elevations independent of infection/sepsis. Clinically is afebrile, peritoneal fluid inconsistent with SBP and does not have other localizable infectious symptoms. Creatinine 1.6Creatinine 12/21/2022 was 1.36, creatinine is currently downtrending from peak of 1.7 CRP 3.72 Folate low at 4.37, repleted Patient with significant symptomatic improvement in breathing and discomfort following 2 L of paracentesis. Currently on spironolactone 25/furosemide 20 mg. - Had extensive discussion with patient, he is not interested in going to AA meetings, but he will continue to abstain from alcohol. Patient does not have a PCP, does not currently have insurance MELD score 12/23: 33 points, 52% mortality Child-Goldsmith: 12 points, class C. 82% perioperative mortality. (2) Liver cirrhosis: Plan: Suspect due to alcohol use CARLOS ENRIQUE negative Antimitochondrial antibody negative Anti-smooth muscle antibody negative Hepatitis C nonreactive AFP normal Ceruloplasmin normal Hep B surface antigen nonreactive, hep B core IgM nonreactive, Anti-HBs pending (3) Alcohol use disorder: Plan: No symptoms/signs of withdrawal - last alcohol drink 5-6 days ago per patient. (4) Acute hyponatremia: Plan: Remains mildly hypervolemic, trace ankle edema and with moderate ascites Symptomatically greatly improved following paracentesis -Mild hypervolemia on exam. Continue Lasix 20mg PO daily and increase spironolactone 50 mg to maintain 40:100 ratio and follow creatinine (5) Elevated INR: Plan: Received vitamin K 10 mg IV previously. Follow for improvement, likely significantly impaired synthetic function due to cirrhosis (6) Epigastric pain: Plan: Significantly improved following paracentesis, suspect that this is pressure effect from his ascites Abdomen is nonrigid and without guarding, and fluid does not suggest SBP (7) Hematochezia: Plan: Monitor CBC Plan VTE Prophylaxis: SCDs while inpatient. Patient is with INR of 1.8 likely reflecting synthetic dysfunction, did receive IV vitamin K for nutritional deficiency. Of note patient's are not protected from auto anticoagulation of cirrhosis. Diet - low Na Disposition - admit to med/tele Admission and Anticipated Discharge Date Admission Date: December 21, 2022 Subjective Charles is seen at the bedside in the afternoon post paracentesis. He reports he has had significant improvement in his abdominal pain following paracentesis, currently does not have pain. Denies fever, chills, sweats. No lightheadedness or dizziness. Inquires whether his ascites will go away and fix itself if he stops drinking. Discussed the nature and natural course of cirrhosis, and emphasized the importance of remaining abstinent from alcohol and connecting to outpatient hepatology and with consistent PCP follow-up. Review of Systems Review of Systems: All systems reviewed & are unremarkable except as noted in Subjective Physical Exam Physical Exam: General: A&Ox3. NAD. Cooperative. HEENT: Atraumatic, normocephalic. Vision/hearing intact, EoM intact. SKin: Jaundice, scleral icterus is present Pulm: CTAB A&P. -wheezes, -rales, -rhonchi. Symmetrical chest rise. No increased work of breathing. No respiratory distress. Cardiac: RRR, -mrg. Radial pulses intact and symmetrical. Abdominal:+Moderate ascites. NT on palpation. No rebound/guarding. Bandaid over paracentesis site, no erythema or leaking. Ext: +pedal edema. Moves extremities equally. No asterixis Results & Data Results & Data Vital Signs (Past 12 Hours) Vital Signs Temp Pulse Pulse Resp BP Pulse Ox O2 Del Method 12/23/22 14:47 36.6 C 97 H 14 116/75 95 Room Air 12/23/22 13:14 36.5 C 97 H 14 124/78 95 Room Air 12/23/22 12:54 36.6 C 96 H 16 134/81 93 Room Air 12/23/22 12:14 36.5 C 101 H 14 138/82 94 Room Air 12/23/22 11:58 36.6 C 97 H 16 117/74 94 Room Air 12/23/22 07:44 96 H 12/23/22 07:34 36.4 C L 99 H 18 137/84 94 Room Air 12/23/22 03:47 36.4 C L 107 H 18 132/80 93 Room Air PG Care Time/CCT Total # of Minutes Spent Total Time Spent with Patient: Total time spent is greater than 50% in coordination of care (as documented) at patient's floor/unit and/or counseling patient: Coding Level of Care Code 80855 SUB INP/OBS CARE 3/50MIN Diagnoses Alcoholic hepatitis with ascites K70.11 Liver cirrhosis K74.60 Alcohol use disorder F10.90 Acute hyponatremia E87.1 Elevated INR R79.1 Epigastric pain R10.13 Hematochezia K92.1
[2022-12-23] MEDS: prednisoLONE sod phosphate 15 MG/5 ML PO SCH (20:14)
[2022-12-24 06:54] LABS: Albumin Globulin Ratio 0.7 (0.9-2); BUN Creatinine Ratio 23.5 (10-20); Bilirubin,Total 21.1 mg/dl (0.2-1.0); Calcium 7.4 mg/dl (8.6-10.3); Creatinine Clr Calc Pharmacy 75.1 ml/min; Est GFR (African American) 61.2 ml/min; Est GFR (Non-African American) 52.8 ml/min; Potassium 4.5 mmol/L (3.5-5.1)
[2022-12-24 08:15] LABS: Hemoglobin 10.5 g/dl (14.0-18.0); Mean Corpuscular Hemoglobin 41.2 pg (25.0-34.0); Mean Corpuscular Hgb Conc 37.5 g/dL (32.0-36.0); Mean Corpuscular Volume 109.8 fL (80.0-100.0); Mean Platelet Volume 11.7 fL (9.4-12.4); Platelet Count 115 K/uL (130-400); RDW Coefficient of Variation 15.4 % (11.5-14.5); RDW Standard Deviation 62.1 fL (36.4-46.3); Red Blood Count 2.55 M/uL (4.70-6.10); White Blood Count 13.55 K/ul (4.8-10.8)
[2022-12-24] MEDS: PANTOprazole 40 MG TAB PO SCH (08:34)
[2022-12-24] MEDS: FUROSEMIDE 20 MG TAB PO SCH (08:35)
[2022-12-24] MEDS: THIAMINE HCL 100 MG TAB PO SCH (08:35)
[2022-12-24] MEDS: prednisoLONE sod phosphate 15 MG/5 ML PO SCH (08:36)
[2022-12-24 08:46] LABS: Echinocytes 2+; Immature Granulocytes # (auto) 0.15 K/uL (0.01-0.20); Immature Granulocytes % (auto) 1.1 %; Lymphocytes % (auto) 3.7 %; Monocytes % (auto) 3.7 %; Neutrophils % (auto) 91.5 %; Target Cells 1+; Tear Drop Cells 1+
[2022-12-24] MEDS ORDERED: SPIRONOLACTONE 25 MG TAB PO SCH (09:00)
--- NOTE | 2022-12-24 16:02 | Discharge Summary ---
Date of Service December 24, 2022 Admission HPI Per Admitting Provider Charles Donald is a 52 year old male with alcohol use disorder who presents to the ER due to fatigue, abdominal distention/pain, leg swelling, shortness of breath and jaundice. He reports symptoms started 5 days ago with al his symptoms getting progressively worse over the time. His father noticed his skin yellowing starting yesterday. The patient reports only now being able to walk 20-30 yards before becoming too short of breath. He denies any chest pain or palpitations. Takes Aleve intermittently for the abdominal pain (last took this 2 days ago). He has noticed some red blood in his stool yesterday but none today. Associated diarrhea and nausea on and off for the last 2 weeks. One episode of vomiting yesterday. He notes an long history of high alcohol consumption. Mainly of a 6 pack of beer daily. About 1-1.5 years ago he was drinking a bottle of whisky a day which he managed to give up 6-10 months ago. More recently he has been drinking 2 Four Raymundo's a day which he discontinued 5-6 days ago. He last went to alcohol rehabilitation 5 years ago. Multiple previous episodes of alcohol withdrawal although he doesn't currently think he has any symptoms. No prior alcohol withdrawal seizures or ICU stays. No fever, chills, respiratory, gastrointestinal or urinary symptoms. Principal Diagnosis Alcohol induced liver failure, cirrhosis Discharge Exam General: A&Ox3. NAD. Cooperative. HEENT: Atraumatic, normocephalic. Vision/hearing intact, EoM intact. SKin: Jaundice, scleral icterus is present Pulm: CTAB A&P. -wheezes, -rales, -rhonchi. Symmetrical chest rise. No increased work of breathing. No respiratory distress. Cardiac: RRR, -mrg. Radial pulses intact and symmetrical. Abdominal:+Moderate ascites. NT on palpation. No rebound/guarding. Bandaid over paracentesis site, no erythema or leaking. Ext: +pedal edema. Moves extremities equally. No asterixis Discharge Data Allergies Allergy/AdvReac Type Severity Reaction Status Date / Time No Known Allergies Allergy Unverified 12/21/22 11:18 Consultations 12/21/22 11:51 ED Decision to Admit Stat 12/21/22 15:27 Consult Gastroenterology Routine Ordered Studies 12/21/22 09:43 CT abd pelvis IV con only Urgent 12/23/22 07:30 IR paracentesis abd w/img US Routine Hospital Course (1) Alcoholic hepatitis with ascites: Charles is a 52-year-old male who presented with jaundice and he was treated for hepatitis due to chronic alcohol use with cirrhosis. Last drink was 6 days prior to admission, while he had had prior withdrawal symptoms had slowly tapered and was not showing any signs of withdrawal at time of discharge. To do as outpatient: 1. Follow-up with gastroenterology. Patient completed 1 week of prednisolone for acute alcoholic hepatitis with DF greater than 50, repeat labs pending prior to gastroenterology level and discontinuation of steroids versus completion of full 28 days pending reevaluation at that time 2. Patient started on Protonix twice daily for episode of slight hematemesis without recurrence and stable hemoglobin. CT did show evidence of esophageal varices, patient was discharged on nadolol. Patient did not have inpatient endoscopy. Bleeding did not recur. Octreotide was not required 3. Continue Lasix 20 mg/spironolactone 50 mg. If well-tolerated can increase this to 40/100 as outpatient 4. Follow-up with gastroenterology and PCP. Patient will ultimately need referral to yeast distiller 5. Continued alcohol cessation. Patient declined AA resources on discharge 6. Repeat assessment for paracentesis. Patient did have 1 L of fluid removed while inpatient with significant improvement/resolution of abdominal discomfort Alcoholic hepatitis with ascites CTA/P: 1. The liver is enlarged, markedly heterogeneous, and cirrhotic in morphology. 2. Hepatic heterogeneity likely represents extensive geographic steatosis. Correlate with serum AFP levels. If there is concern for neoplasm/underlying mass lesion a nonemergent/outpatient MRI of the liver could be considered for further assessment. 3. A ezcnr-[id number] volume of abdominopelvic ascites, esophageal varices, splenomegaly, perisplenic varices, and a splenorenal shunt indicate portal hypertension. 4. Gallbladder wall thickening and hyperemia is likely related to adjacent cirrhosis and ascites. There is no convincing CT evidence of acute cholecystitis. Correlate with clinical and laboratory findings. 5. Right-sided nephrolithiasis. 6. Additional findings as above. CXR: No acute findings - Paracentesis guided ultrasound performed 12/23. 2.1 L of yellow ascitic fluid was removed, 1 L sent for analysis. Peritoneal fluid: Low RBC, low albumin, LDH 50, glucose 138, lipase 93, 99 white blood cells (normal), 4% neutrophils. Inconsistent with SBP Maddrey discriminant function previously 68.5 on initial assessment with a poor prognosis. Repeat Maddrey function 55 points, remains with poor prognosis. --> Steriods prednisolone initiated with reevaluation in 7 days to be done at outpatient Pro-Tremaine 1.65. PCT interpretation limited in the setting of severe liver disease/cirrhosis which can cause baseline elevations independent of infection/sepsis. Clinically is afebrile, peritoneal fluid inconsistent with SBP and does not have other localizable infectious symptoms. Creatinine 1.6Creatinine 12/21/2022 was 1.36, creatinine is currently downtrending from peak of 1.7 CRP 3.72 Folate low at 4.37, repleted. Continue B complex OTC supplementation as outpatient Patient with significant symptomatic improvement in breathing and discomfort following 2 L of paracentesis. Currently on spironolactone 25/furosemide 20 mg. - Had extensive discussion with patient, he is not interested in going to AA meetings, but he will continue to abstain from alcohol. Patient does not have a PCP, does not currently have insurance. Was established with Antoinette Smith PCP and GI follow-up prior to discharge. Insurance being set up with at time of discharge MELD score 12/23: 33 points, 52% mortality Child-Goldsmith: 12 points, class C. 82% perioperative mortality. At time of discharge patient felt clinically well, was not confused, was mentating normally, and had no pain. While he remained jaundiced there were no signs of gallbladder involvement or ductal dilation to suggest obstructive pathology at time of discharge, and with an elevated INR of 1.8 hyperbilirubinemia likely due to hepatic dysfunction with severe alcoholic cirrhosis. As labs were stable patient referred to be discharged home with continued follow-up as an outpatient. Importance of alcohol abstinence was reinforced, patient reports that he is done with alcohol and agreed to remain sober, although did decline AA resources. We will follow-up with hepatology (2) Liver cirrhosis: Suspect due to alcohol use CARLOS ENRIQUE negative Antimitochondrial antibody negative Anti-smooth muscle antibody negative Hepatitis C nonreactive AFP normal Ceruloplasmin normal Hep B surface antigen nonreactive, hep B core IgM nonreactive, Anti-HBs pendi ng (3) Alcohol use disorder: No symptoms/signs of withdrawal - last alcohol drink 5-6 days ago per patient. Prior symptoms of tremors with withdrawal, none at time of hospitalist reevaluation and no symptoms of withdrawal at discharge (4) Acute hyponatremia: Remains mildly hypervolemic, trace ankle edema and with moderate ascites -Mild hypervolemia on exam. Continue Lasix 20mg PO daily and increase spironolactone 50 mg to maintain 40:100 ratio and follow creatinine. Uptitrate as able as outpatient (5) Elevated INR: Received vitamin K 10 mg IV previously. Follow for improvement, likely significantly impaired synthetic function due to cirrhosis (6) Epigastric pain: Significantly improved following paracentesis, suspect that this is pressure effect from his ascites Abdomen is nonrigid and without guarding, and fluid does not suggest SBP (7) Hematochezia: Monitor CBC Plan VTE Prophylaxis: SCDs while inpatient. Patient is with INR of 1.8 likely reflecting synthetic dysfunction, did receive IV vitamin K for nutritional deficiency. He is not protected from DVT from auto anticoagulation of cirrhosis, discussed with patient. Pharmacal prophylaxis not recommended in the setting of varices and initial episode of bleeding Total Time Total Time Spent Total Time Spent (In Minutes): Time spend day of discharge 75 minutes including direct patient care, documentation, review of labs and images, and coordination of care. Discharge Plan Discharge Items Patient Disposition: Home - Self-Care Reason For Visit: ACUTE LIVER FAILURE,HYPONATREMIA Discharge Diagnosis: Acute liver failure, alcohol induced hepatitis Activity: Resume your previous activity Non-emergency contact: Primary Care Provider Call non-emergency contact if: you have any medication questions and your symptoms worsen Follow-up/Referrals: Benson Bills CRNP [Nurse Practitioner] - 01/06/23 10:20 am (hospital follow up appointment January 06 at 10:20 Establish Care visit 2022 @ 1:45 p.m. Please arrive 15 minutes prior to appointment time ) Anastasia Corrales CRNP [Nurse Practitioner] - 12/30/22 3:40 pm (GI follow up) PCP,NO [Primary Care Provider] - Diet: Low Sodium (2gm) Addtl Attending Provider Instructions: You have been prescribed blood pressure/fluid medicines to help control the f luid accumulation in your abdomen. You have been prescribed furosemide 20 mg, and spironolactone 50 mg. Please take furosemide 20 mg once daily and spironolactone 50 mg once daily. These medication can cause low blood pressure, if you experience lightheadedness/dizziness or low blood pressure please do not take your daily dose of this medication and contact your primary care provider for recommendations. Your liver specialist will likely increase this dose as an outpatient if you are tolerating it well. You have been prescribed a antiacid medication to help protect your stomach from ulcers and bleeding. Please take Protonix 40 mg twice daily for [address] scan showed evidence of abnormal blood vessels in the esophagus called varices. These can cause life-threatening bleeding. To help prevent bleeding you have been prescribed a blood pressure medicine called nadolol. Please take nadolol 20 mg daily for 1 week. If you have lightheadedness/dizziness, heart rate under 60 bpm, low blood pressure, or are passing out please hold this medication and discuss adjustment with your follow-up providers You showed evidence of acute liver inflammation likely due to alcohol while in the hospital. A score of hepatitis severity and illness called the Madrey discriminant function was calculated, and based on this measurement you were recommended for a course of steroid medications. You have been prescribed prednisolone 40 mg daily. Please take prednisone 40 mg daily, and follow-up with your vp security for repeat blood work in approximately 1 week. If this medication appears to have benefited you it can be continued for 28 days total, if no improvement is seen within 1 week then this medication should be discontinued. Your liver enzymes including bilirubin were high during admission. You did not show any signs of gallbladder disease or stones causing these elevated levels, you did show an abnormal liver with both inflammation and cirrhosis. While these levels were high, they were stable and began to decrease slightly on day of discharge. It is reasonable to follow these as an outpatient, and connect with a vp security and ultimately yeast distiller as an outpatient. If you experience any new or worsening symptoms, especially fever, chills, worsening abdominal pain, lightheadedness, dizziness, confusion, or tremor/shaking please call your PCP for recommendations, or call 911 for reevaluation in the emergency department if symptoms are severe or you are very concerned. It is critically important to remain abstinent from alcohol. Continued alcohol use will both cause continued liver damage, and limit/prevent transplant evaluation. Due to your liver dysfunction is recommended that you avoid Tylenol. In some cases it is okay with a physician's permission to take Tylenol up to 2000 mg/day with underlying liver disease, but this should be discussed with your doctor prior to taking Tylenol and should never be done with any recent alcohol use. An appointment for follow-up with post catheter neuro and neurology and a new PCP have been scheduled as above. If need to make any adjustments to these appointments, please contact their office at the phone numbers above. If you develop any new or worsening symptoms including fever, chills, sweats, chest pain, chest pressure, difficulty breathing, uncontrolled nausea/vomiting, rash, wheezing, passing out or nearly passing out, bleeding, black/bloody bowel movements, or other new or concerning symptoms please call your primary care physician, or call 911 for re-evaluation in the emergency department if you are very concerned. Pending Studies at Discharge: No Stand-Alone Forms: My [facility] [employer] [facility], Smoking Cessation Medications and DC Order Prescriptions: New spironolactone 25 mg Tablet 50 mg PO QAM 30 Days Qty: 60 0RF pantoprazole 40 mg Tablet,Delayed Release (Dr/Ec) 40 mg PO BID 60 Days Qty: 120 0RF furosemide 20 mg Tablet 20 mg PO QAM 30 Days Qty: 30 0RF prednisolone 15 mg/5 mL solution 40 mg PO QAM Qty: 100 3RF nadolol 20 mg tablet 20 mg PO DAILY 14 Days Qty: 14 1RF Continued naproxen sodium [Aleve] 220 mg Tablet 220 mg PO DAILY Discharge Orders: Discharge Order (Routine); Ordered 12/24/22 Ordered By: Justen Belle Admission Data Admit Date/Time: 12/21/22 11:51 Attending Provider: Justen Belle Admit Provider: Bharat Hayes Primary Care Provider: PCP,NO Other Providers: Bharat Hayes ; Jefry Yin Coding Level of Care Code 14318 INP/OBS DISCH >30 MIN Diagnoses Alcoholic hepatitis with ascites K70.11 Liver cirrhosis K74.60 Alcohol use disorder F10.90 Acute hyponatremia E87.1 Elevated INR R79.1 Epigastric pain R10.13 Hematochezia K92.1
== END 2022-12-24 16:27 | disposition home or self-care (01) | DRG 432 ==
LOC: ED 09:25 → SUATTDRO 11:51 → 2N 11:51

== ENCOUNTER 2022-12-31 14:07 | Inpatient (IN) ==
--- NOTE | 2022-12-31 16:17 | Emergency Department Note ---
Impression & Plan Hypotension, Leukocytosis, Chronic liver failure, Jaundice, Ascites ED Provider Note NAME: JIM NAJERA AGE: 52 SEX: M : 1970 ARRIVES VIA: Walk-In INFORMANT: [Patient] ED PROVIDER(S): Angelo Garvin MD CHIEF COMPLAINT: Abdominal pain HISTORY OF PRESENT ILLNESS: GI clinic documentation... Patient is a 52 yo male recently hospitalized in acute liver failure with alcoholic hepatitis and new findings of cirrhosis. His initial presentation to the hospital indicated a MELD score approaching 40 and a DF of around 70. INR was 2.1 on admission. T bili >20. He had a paracentesis while hospitalized for relief of his symptoms but also to exclude SBP. He declined intervention for alcohol cessation. He had an elevated procalcitonin during admission. Glucocorticoids were deferred, however they were initiated prior to discharge as his labs were not improving. He was also initiated on Nadolol, Aldactone, & Furosemide prior to discharge. Patient's last labs were on 12/23/22 prior to his discharge. Patient was to be arranged with hepatology after the hospital, mickey tamez presents to clinic today for further recommendations. He notes he was given 2 weeks of Prednisolone prior to discharge. He has abstained from alcohol for the past 2 weeks. --------- The patient is a 52-year-old male with alcoholic liver disease. He was recently in our hospital for this issue. The patient's jaundice improved and his edema improved. He states that in the last couple of days, things have again worsened. He is now yellow when he looks in the mirror, his legs are swollen. He has some right-sided abdominal pain. Patient did see GI yesterday. They were concerned about his worsening situation. He was referred to the ER today for a work-up, there was concern for the possibility of spontaneous bacterial peritonitis. The patient does not have any fever. There has been no cough or congestion. He does complain of some lower right sided abdominal pain that is worse with ambulation. He has been weak. No chest pain. His urine is dark in color. He is able to eat and drink, no vomiting. PMHx/PSHx: See Below SOCIAL HISTORY: See Below. PHYSICAL EXAM: GENERAL: Patient is in no acute distress. HEENT: No acute trauma, normocephalic atraumatic, mucous membranes dry, no nasal congestion. NECK: No stridor, no adenopathy, no meningismus, trachea is midline. LUNGS: Clear to auscultation bilaterally, no wheeze, no rhonchi, breath sounds equal. HEART: Without murmurs gallops or rubs, regular rate and rhythm. ABDOMEN: Soft, nontender, bowel sounds positive, no peritonitis. Abdominal distention noted. EXTREMITIES: No cyanosis, moderate bilateral pedal edema, full range of motion of all the joints without pain or difficulty, no signs for acute trauma. NEUROLOGIC: Oriented x 3, no acute motor or sensory deficits, no focal weakness. SKIN: No rash, moderate jaundice, no diaphoresis. DIFFERENTIAL DIAGNOSIS: Worsening liver disease, spontaneous bacterial peritonitis, diverticulitis or colitis, intra-abdominal bleeding, renal failure or electrolyte abnormality, viral infection, UTI, among others. EMERGENCY DEPARTMENT COURSE/PROCEDURES: Prior/Outside records reviewed: Recent GI note. ECG per my interpretation: Indication was weakness and dizziness. The ECG sh ows a sinus bradycardia with a rate of 55. There is no ST elevation, no PVCs. The QTc is 407. Continuous Cardiac Monitoring per my interpretation: An order was placed for continuous cardiac monitoring. The monitor shows a rate of 59 with sinus bradycardia. Critical Care Note: I have personally spent 51 minutes of critical care time in the direct management of this patient. This includes bedside care, interpretation of diagnostic studies, and testing, discussion with consultants, patient, and family members, and other required patient management activities. This 51 minutes is in excess of all separately billable procedures. MEDICAL DECISION MAKING: There is a significant leukocytosis at 21,000, this is an increase for the patient. This elevation could be consistent with infection or his recent steroid use. There was a normal hemoglobin. Platelet count was low at 124. The thrombocytopenia was not a new finding. A coagulopathy was seen consistent with his liver disease. Sodium was low 126, this appears chronic as of late. Lactic acid level was not not elevated making severe sepsis less likely. Liver enzyme elevations were noted, the bilirubin was 22. The patient's bilirubin value is similar to previous testing. Albumin was low at 2. Urinalysis did not show true findings of infection. COVID test returned negative. Chest film per my review did not show mediastinal widening, pneumonia or pneumothorax. Abdominal and pelvis CT shows ascites, no acute surgical process by CT imaging. On exam, the patient was jaundiced and hypotensive. He appeared clinically dehydrated. There was no peritonitis. The patient received IV saline, 2.5 L. This saline dose was given based on a 30 cc/kg bolus for the possibly of sepsis. The ideal body weight was used for the fluid calculation. The patient was given IV cefepime as empiric antibiotic coverage. The patient's blood pressure has improved although, it remains somewhat low. He does not seem in any distress. He is resting comfortably. He is not in pain. The patient does require a hospital stay. I did speak with case management, the on-call hospitalist has been consulted. Further work-up is warranted. DISPOSITION: Patient's presentation and findings warrant a hospital stay. Past Med/Surg History Medical History Acute hyponatremia Alcohol use disorder Alcoholic hepatitis Alcoholic hepatitis with ascites Elevated INR Surgical History No pertinent past surgical history Social History Smoking Status: Never smoker Hx Alcohol Use: Yes Alcohol type: beer, wine and hard liquor Hx Substance Use: No Preferred Language: [place] Communication Ability: Effective Assistant Professor Of Communication Required: No Beliefs That Will Affect Care: None Current Living Situation: Parent Feels Safe at Home: Yes Assistive Devices: None Allergies Allergies Allergy/AdvReac Type Severity Reaction Status Date / Time No Known Allergies Allergy Verified 12/31/22 18:48 Home Meds Previous Rx's Medication Instructions Recorded furosemide 20 mg tablet 20 mg PO QAM 30 days #30 tabs 12/24/22 nadolol 20 mg tablet 20 mg PO DAILY 14 days #14 tabs 12/24/22 pantoprazole 40 mg tablet,delayed 40 mg PO BID 60 days #120 tabs 12/24/22 release prednisolone 15 mg/5 mL oral 40 mg (13.3333 mL) PO QAM #100 mL 12/24/22 solution spironolactone 25 mg tablet 50 mg PO QAM 30 days #60 tabs 12/24/22 Results & Data (ED) Vital Signs Vital Signs - 24 hr 12/31/22 14:20 12/31/22 16:27 12/31/22 16:25 Temperature 36.8 C Temperature Source Temporal Artery Scan Pulse Rate 55 L 59 L 58 L Pulse Rate from SpO2 Sensor 59 L Respiratory Rate 18 16 Respiratory Effort / Characteristics Non-Labored Respiratory Depth Normal Blood Pressure 82/57 L Blood Pressure Mean 65 Pulse Oximetry 98 99 Oxygen Delivery Method Room Air Sepsis Recent Fever Within 48 Hours No Sepsis New/Unexplained Change in Mental Status No Sepsis Action Taken by Nursing No Action Required 12/31/22 16:30 12/31/22 16:30 12/31/22 16:40 Temperature Temperature Source Pulse Rate 58 L 59 L Pulse Rate from SpO2 Sensor 58 L 59 L Respiratory Rate 15 19 Respiratory Effort / Characteristics Respiratory Depth Blood Pressure 90/58 L Blood Pressure Mean 76 Pulse Oximetry 99 100 Oxygen Delivery Method Sepsis Recent Fever Within 48 Hours Sepsis New/Unexplained Change in Mental Status Sepsis Action Taken by Nursing 12/31/22 16:50 12/31/22 17:00 12/31/22 17:10 Temperature Temperature Source Pulse Rate 57 L 57 L 58 L Pulse Rate from SpO2 Sensor 57 L 53 L Respiratory Rate 18 17 16 Respiratory Effort / Characteristics Respiratory Depth Blood Pressure Blood Pressure Mean Pulse Oximetry 97 97 Oxygen Delivery Method Sepsis Recent Fever Within 48 Hours Sepsis New/Unexplained Change in Mental Status Sepsis Action Taken by Nursing 12/31/22 17:11 12/31/22 17:11 12/31/22 17:20 Temperature Temperature Source Pulse Rate 59 L Pulse Rate from SpO2 Sensor 59 L 59 L Respiratory Rate 19 23 Respiratory Effort / Characteristics Respiratory Depth Blood Pressure 91/57 L Blood Pressure Mean 76 Pulse Oximetry 98 97 Oxygen Delivery Method Sepsis Recent Fever Within 48 Hours Sepsis New/Unexplained Change in Mental Status Sepsis Action Taken by Nursing 12/31/22 17:30 12/31/22 17:30 12/31/22 17:40 Temperature Temperature Source Pulse Rate 58 L 58 L Pulse Rate from SpO2 Sensor 59 L 59 L Respiratory Rate 15 23 Respiratory Effort / Characteristics Respiratory Depth Blood Pressure 75/56 L Blood Pressure Mean 66 Pulse Oximetry 97 97 Oxygen Delivery Method Sepsis Recent Fever Within 48 Hours Sepsis New/Unexplained Change in Mental Status Sepsis Action Taken by Nursing 12/31/22 17:50 12/31/22 18:00 12/31/22 18:01 Temperature Temperature Source Pulse Rate 57 L 56 L Pulse Rate from SpO2 Sensor 57 L 55 L Respiratory Rate 15 24 Respiratory Effort / Characteristics Respiratory Depth Blood Pressure 96/53 L Blood Pressure Mean 65 Pulse Oximetry 98 99 Oxygen Delivery Method Sepsis Recent Fever Within 48 Hours Sepsis New/Unexplained Change in Mental Status Sepsis Action Taken by Nursing 12/31/22 18:01 12/31/22 18:10 12/31/22 18:25 Temperature Temperature Source Pulse Rate 57 L 56 L 62 Pulse Rate from SpO2 Sensor 57 L 55 L Respiratory Rate 20 18 13 Respiratory Effort / Characteristics Respiratory Depth Blood Pressure Blood Pressure Mean Pulse Oximetry 98 97 Oxygen Delivery Method Sepsis Recent Fever Within 48 Hours Sepsis New/Unexplained Change in Mental Status Sepsis Action Taken by Nursing 12/31/22 18:30 12/31/22 18:30 12/31/22 18:40 Temperature Temperature Source Pulse Rate 54 L 55 L Pulse Rate from SpO2 Sensor 54 L Respiratory Rate 17 18 Respiratory Effort / Characteristics Respiratory Depth Blood Pressure 98/66 L Blood Pressure Mean 75 Pulse Oximetry 97 Oxygen Delivery Method Sepsis Recent Fever Within 48 Hours Sepsis New/Unexplained Change in Mental Status Sepsis Action Taken by Nursing 12/31/22 18:50 12/31/22 19:03 12/31/22 19:08 Temperature Temperature Source Pulse Rate 57 L 57 L Pulse Rate from SpO2 Sensor 56 L Respiratory Rate 17 20 Respiratory Effort / Characteristics Respiratory Depth Blood Pressure 91/64 L Blood Pressure Mean 71 Pulse Oximetry 96 Oxygen Delivery Method Sepsis Recent Fever Within 48 Hours Sepsis New/Unexplained Change in Mental Status Sepsis Action Taken by Nursing 12/31/22 19:08 12/31/22 19:10 12/31/22 19:20 Temperature Temperature Source Pulse Rate 55 L 55 L 55 L Pulse Rate from SpO2 Sensor 55 L 55 L 56 L Respiratory Rate 18 19 14 Respiratory Effort / Characteristics Respiratory Depth Blood Pressure Blood Pressure Mean Pulse Oximetry 98 96 99 Oxygen Delivery Method Sepsis Recent Fever Within 48 Hours Sepsis New/Unexplained Change in Mental Status Sepsis Action Taken by Nursing 12/31/22 19:30 12/31/22 20:18 12/31/22 19:40 Temperature Temperature Source Pulse Rate 54 L 62 56 L Pulse Rate from SpO2 Sensor 54 L 56 L Respiratory Rate 20 14 Respiratory Effort / Characteristics Respiratory Depth Blood Pressure Blood Pressure Mean Pulse Oximetry 97 98 Oxygen Delivery Method Sepsis Recent Fever Within 48 Hours Sepsis New/Unexplained Change in Mental Status Sepsis Action Taken by Nursing 12/31/22 19:50 12/31/22 20:00 12/31/22 20:01 Temperature Temperature Source Pulse Rate 54 L 54 L Pulse Rate from SpO2 Sensor 54 L Respiratory Rate 15 15 Respiratory Effort / Characteristics Respiratory Depth Blood Pressure 82/59 L Blood Pressure Mean 72 Pulse Oximetry 99 Oxygen Delivery Method Sepsis Recent Fever Within 48 Hours Sepsis New/Unexplained Change in Mental Status Sepsis Action Taken by Nursing 12/31/22 20:01 12/31/22 20:10 12/31/22 20:20 Temperature Temperature Source Pulse Rate 55 L 55 L 65 Pulse Rate from SpO2 Sensor 55 L 54 L 55 L Respiratory Rate 19 17 17 Respiratory Effort / Characteristics Respiratory Depth Blood Pressure Blood Pressure Mean Pulse Oximetry 98 99 98 Oxygen Delivery Method Sepsis Recent Fever Within 48 Hours Sepsis New/Unexplained Change in Mental Status Sepsis Action Taken by Nursing 12/31/22 20:30 12/31/22 20:31 12/31/22 20:31 Temperature Temperature Source Pulse Rate 54 L 54 L Pulse Rate from SpO2 Sensor 55 L 54 L Respiratory Rate 16 17 Respiratory Effort / Characteristics Respiratory Depth Blood Pressure 88/57 L Blood Pressure Mean 73 Pulse Oximetry 98 99 Oxygen Delivery Method Sepsis Recent Fever Within 48 Hours Sepsis New/Unexplained Change in Mental Status Sepsis Action Taken by Nursing 12/31/22 20:40 Temperature Temperature Source Pulse Rate 54 L Pulse Rate from SpO2 Sensor 54 L Respiratory Rate 18 Respiratory Effort / Characteristics Respiratory Depth Blood Pressure Blood Pressure Mean Pulse Oximetry 99 Oxygen Delivery Method Sepsis Recent Fever Within 48 Hours Sepsis New/Unexplained Change in Mental Status Sepsis Action Taken by Snf Medications Current Medication List: was personally reviewed by me Laboratory Data Attestation: I reviewed the patient's lab results. 12/31/22 Unknown 12/31/22 Unknown Lab Results 12/31/22 12/31/22 12/31/22 Range/Units 16:50 17:43 17:43 WBC (4.8-10.8) K/ul RBC (4.70-6.10) M/uL Hgb (14.0-18.0) g/dl Hct (42.0-52.0) % MCV (80.0-100.0) fL MCH (25.0-34.0) pg MCHC (32.0-36.0) g/dL RDW Std Deviation (36.4-46.3) fL RDW Coeff of Rohan (11.5-14.5) % Plt Count (130-400) K/uL MPV (9.4-12.4) fL Immature Gran % (Auto) % Neut % (Auto) % Lymph % (Auto) % [place] % (Auto) % Eos % (Auto) % Baso % (Auto) % Neut # (Auto) (1.40-6.50) K/uL Lymph # (Auto) (1.2-3.4) K/uL [place] # (Auto) (0.11-0.59) K/uL Eos # (Auto) (0-0.50) K/uL Baso # (Auto) (0-0.2) K/uL Immature Gran # (Auto) (0.01-0.20) K/uL Macrocytosis Echinocytes PT 17.5 H (9.0-12.0) Seconds INR 1.6 H (0.9-1.1) APTT 31.7 H (21.0-31.0) Seconds PTT Ratio 1.1 Sodium 126 L (136-145) mmol/L Potassium 4.7 (3.5-5.1) mmol/L Chloride 100 (98-107) mmol/L Carbon Dioxide 20 L (21-32) mmol/L Anion Gap 6 (3-11) BUN TNP Creatinine TNP Est Cr Clr Drug Dosing Not Reportable Est GFR ( Amer) Not Reportable Est GFR (Non-Af Amer) Not Reportable BUN/Creatinine Ratio TNP Glucose 167 H (70-99(Fasting)) mg/dl Lactate 2.0 (0.4-2.0) mmol/L Calcium 7.4 L (8.6-10.3) mg/dl Magnesium Total Bilirubin 22.9 H (0.2-1.0) mg/dl AST 157 H (13-39) U/L ALT 134 H (7-52) U/L Alkaline Phosphatase TNP Troponin I High Sens Total Protein 4.8 L (6.0-8.3) gm/dl Albumin 2.0 L (3.4-5.0) gm/dl Globulin 2.8 (2.5-4.0) gm/dl Albumin/Globulin Ratio 0.7 L (0.9-2) Lipase TNP Urine Color Urine Appearance (Clear) Urine pH (4.5-7.5) Ur Specific [place] (1.000-1.030) Urine Protein (Negative) Urine Glucose (UA) (Negative) Urine Ketones (Negative) Urine Blood (Negative) Urine Nitrite (Negative) Urine Bilirubin (Negative) Urine Urobilinogen (Negative) Ur Leukocyte Esterase (Negative) Urine WBC (Auto) (0-5) /hpf Urine RBC (Auto) (0-4) /hpf U Hyaline Cast (Auto) (0-5) /lpf U Epithel Cells (Auto) (0-5) /lpf Urine Bacteria (Auto) (Negative) SARS-CoV-2, RNA, NAAT (NEGATIVE) 12/31/22 12/31/22 12/31/22 Range/Units 18:25 21:00 Unknown WBC 21.33 H (4.8-10.8) K/ul RBC 3.47 L (4.70-6.10) M/uL Hgb 14.0 (14.0-18.0) g/dl Hct 38.2 L (42.0-52.0) % MCV 110.1 H (80.0-100.0) fL MCH 40.3 H (25.0-34.0) pg MCHC 36.6 H (32.0-36.0) g/dL RDW Std Deviation 60.1 H (36.4-46.3) fL RDW Coeff of Rohan 14.8 H (11.5-14.5) % Plt Count 124 L (130-400) K/uL MPV 12.4 (9.4-12.4) fL Immature Gran % (Auto) 2.3 % Neut % (Auto) 90.5 % Lymph % (Auto) 4.3 % [place] % (Auto) 2.7 % Eos % (Auto) 0.1 % Baso % (Auto) 0.1 % Neut # (Auto) 19.29 H (1.40-6.50) K/uL Lymph # (Auto) 0.92 L (1.2-3.4) K/uL [place] # (Auto) 0.58 (0.11-0.59) K/uL Eos # (Auto) 0.02 (0-0.50) K/uL Baso # (Auto) 0.03 (0-0.2) K/uL Immature Gran # (Auto) 0.49 H (0.01-0.20) K/uL Macrocytosis Present Echinocytes 2+ PT (9.0-12.0) Seconds INR (0.9-1.1) APTT (21.0-31.0) Seconds PTT Ratio Sodium (136-145) mmol/L Potassium (3.5-5.1) mmol/L Chloride (98-107) mmol/L Carbon Dioxide (21-32) mmol/L Anion Gap (3-11) BUN Creatinine Est Cr Clr Drug Dosing Est GFR ( Amer) Est GFR (Non-Af Amer) BUN/Creatinine Ratio Glucose (70-99(Fasting)) mg/dl Lactate (0.4-2.0) mmol/L Calcium (8.6-10.3) mg/dl Magnesium Total Bilirubin (0.2-1.0) mg/dl AST (13-39) U/L ALT (7-52) U/L Alkaline Phosphatase Troponin I High Sens Total Protein (6.0-8.3) gm/dl Albumin (3.4-5.0) gm/dl Globulin (2.5-4.0) gm/dl Albumin/Globulin Ratio (0.9-2) Lipase Urine Color Dark Yellow Urine Appearance Cloudy A (Clear) Urine pH 5.5 (4.5-7.5) Ur Specific [place] 1.018 (1.000-1.030) Urine Protein Negative (Negative) Urine Glucose (UA) Negative (Negative) Urine Ketones Negative (Negative) Urine Blood Negative (Negative) Urine Nitrite Positive A (Negative) Urine Bilirubin 3+ H (Negative) Urine Urobilinogen Negative (Negative) Ur Leukocyte Esterase 1+ H (Negative) Urine WBC (Auto) 1-5 (0-5) /hpf Urine RBC (Auto) 10-30 H (0-4) /hpf U Hyaline Cast (Auto) 5-10 H (0-5) /lpf U Epithel Cells (Auto) 10-20 H (0-5) /lpf Urine Bacteria (Auto) Negative (Negative) SARS-CoV-2, RNA, NAAT NEGATIVE (NEGATIVE) 12/31/22 12/31/22 Range/Units Unknown Unknown WBC (4.8-10.8) K/ul RBC (4.70-6.10) M/uL Hgb (14.0-18.0) g/dl Hct (42.0-52.0) % MCV (80.0-100.0) fL MCH (25.0-34.0) pg MCHC (32.0-36.0) g/dL RDW Std Deviation (36.4-46.3) fL RDW Coeff of Rohan (11.5-14.5) % Plt Count (130-400) K/uL MPV (9.4-12.4) fL Immature Gran % (Auto) % Neut % (Auto) % Lymph % (Auto) % [place] % (Auto) % Eos % (Auto) % Baso % (Auto) % Neut # (Auto) (1.40-6.50) K/uL Lymph # (Auto) (1.2-3.4) K/uL [place] # (Auto) (0.11-0.59) K/uL Eos # (Auto) (0-0.50) K/uL Baso # (Auto) (0-0.2) K/uL Immature Gran # (Auto) (0.01-0.20) K/uL Macrocytosis Echinocytes PT Cancelled (9.0-12.0) Seconds INR Cancelled (0.9-1.1) APTT Cancelled (21.0-31.0) Seconds PTT Ratio Cancelled Sodium Cancelled (136-145) mmol/L Potassium Cancelled (3.5-5.1) mmol/L Chloride Cancelled (98-107) mmol/L Carbon Dioxide Cancelled (21-32) mmol/L Anion Gap Cancelled (3-11) BUN Cancelled Creatinine Cancelled Est Cr Clr Drug Dosing Cancelled Est GFR ( Amer) Cancelled Est GFR (Non-Af Amer) Cancelled BUN/Creatinine Ratio Cancelled Glucose Cancelled (70-99(Fasting)) mg/dl Lactate (0.4-2.0) mmol/L Calcium Cancelled (8.6-10.3) mg/dl Magnesium Cancelled Total Bilirubin Cancelled (0.2-1.0) mg/dl AST Cancelled (13-39) U/L ALT Cancelled (7-52) U/L Alkaline Phosphatase Cancelled Troponin I High Sens Cancelled Total Protein Cancelled (6.0-8.3) gm/dl Albumin Cancelled (3.4-5.0) gm/dl Globulin Cancelled (2.5-4.0) gm/dl Albumin/Globulin Ratio Cancelled (0.9-2) Lipase Cancelled Urine Color Urine Appearance (Clear) Urine pH (4.5-7.5) Ur Specific [place] (1.000-1.030) Urine Protein (Negative) Urine Glucose (UA) (Negative) Urine Ketones (Negative) Urine Blood (Negative) Urine Nitrite (Negative) Urine Bilirubin (Negative) Urine Urobilinogen (Negative) Ur Leukocyte Esterase (Negative) Urine WBC (Auto) (0-5) /hpf Urine RBC (Auto) (0-4) /hpf U Hyaline Cast (Auto) (0-5) /lpf U Epithel Cells (Auto) (0-5) /lpf Urine Bacteria (Auto) (Negative) SARS-CoV-2, RNA, NAAT (NEGATIVE) Administered Medications Discontinued Medications Sodium Chloride (Nss 1000ml) 500 mls @ 999 mls/hr IV .Q31M ONE Stop: 12/31/22 16:59 Last Infusion: 12/31/22 17:35 Dose: 0 mls/hr Documented By: Admin: 12/31/22 16:56 Dose: 999 mls/hr Documented By: JEFF Cefepime HCl (Maxipime) 2,000 mg in 20 mls @ 5 mls/min IV NOW STA; Protocol Stop: 12/31/22 16:36 Last Admin: 12/31/22 17:09 Dose: 5 mls/min Documented By: JEFF Sodium Chloride (Nss 1000ml) 1,000 mls @ 999 mls/hr IV .Q1H1M ONE Stop: 12/31/22 19:18 Last Infusion: 12/31/22 21:45 Dose: 0 mls/hr Documented By: Admin: 12/31/22 19:08 Dose: 999 mls/hr Documented By: JEFF Sodium Chloride (Nss 1000ml) 1,000 mls @ 999 mls/hr IV .Q1H1M ONE Stop: 12/31/22 19:19 Last Infusion: 12/31/22 21:45 Dose: 0 mls/hr Documented By: Admin: 12/31/22 19:08 Dose: 999 mls/hr Documented By: JEFF Imaging Data Radiologist's Impression: Chest X-Ray 12/31/22 14:25 XR chest 1V not portable CLINICAL HISTORY: hypotension TECHNIQUE: Single frontal radiograph of the chest was obtained. Comparison: Comparison is made to chest radiograph 12/21/2022 FINDINGS: No lines and tubes are seen. Cardiomegaly is noted. The lungs are clear. No evidence of pleural effusion or pneumothorax. IMPRESSION: No acute chest disease. ACT 112: Negative or not required by law. Electronically signed by: Sd Giang M.D. 12/31/2022 4:42 PM Abdomen/Pelvis CT 12/31/22 18:47 Exam(s): CT ABDOMEN + PELVIS Without Contrast EXAM: CT Abdomen and Pelvis Without Intravenous Contrast CLINICAL HISTORY: Reason for exam: right sided pain. TECHNIQUE: Axial computed tomography images of the abdomen and pelvis without intravenous contrast. CTDI is 79.15 mGy and DLP is 1915.01 mGy-cm. Automated exposure control was utilized for the study. A dose lowering technique was utilized adhering to the principles of ALARA. COMPARISON: CT abdomen/pelvis on 12/21/2022 FINDINGS: Lung bases: Elevation of the right hemidiaphragm. Right basilar atelectasis. ABDOMEN: Liver: Cirrhotic liver. Probable heterogeneous hepatic steatosis. Hepatomegaly. Gallbladder and bile ducts: Underdistended gallbladder with irregular wall thickening again noted. This could be secondary to underlying liver disease, but neoplasm is not excluded. No ductal dilation. Pancreas: Unremarkable. No ductal dilation. Spleen: Mild splenomegaly. Adrenals: Unremarkable. No mass. Kidneys and ureters: Unremarkable. No obstructing stones. No hydronephrosis. Stomach and bowel: Evaluation of the stomach is limited by underdistention. Underdistended colon limits evaluation. No small bowel obstruction. No mucosal thickening. PELVIS: Appendix: Normal appendix. Bladder: Underdistended bladder limits evaluation. No stones. Reproductive: Unremarkable as visualized. ABDOMEN and PELVIS: Intraperitoneal space: Large amount of ascites. No free air. Bones/joints: Degenerative changes of the spine. No acute fracture. No dislocation. Soft tissues: Body wall edema. Vasculature: Mild atherosclerotic changes of the vasculature. No aortic aneurysm. Varices. Lymph nodes: Unremarkable. No enlarged lymph nodes. IMPRESSION: 1. Large amount of ascites. 2. Underdistended gallbladder with irregular wall thickening again noted. This could be secondary to underlying liver disease, but neoplasm is not excluded. 3. Cirrhotic liver. Probable heterogeneous hepatic steatosis. Hepatomegaly. 4. Mild splenomegaly. Varices. Electronically signed by: Amy Mclaughlin M.D. 12/31/22 19:58 PM Discharge Plan Visit Data Chief Complaint: Abdominal Pain Stated Complaint: SCLEROSIS ED Provider: Angelo Garvin Discharge Problem: Hypotension, Leukocytosis, Chronic liver failure, Jaundice, Ascites Patient Disposition: Admitted As Inpatient Condition: Fair Forms Stand Alone Forms: My [facility] Prescriptions Prescriptions: No Action spironolactone 25 mg Tablet 50 mg PO QAM 30 Days Qty: 60 0RF pantoprazole 40 mg Tablet,Delayed Release (Dr/Ec) 40 mg PO BID 60 Days Qty: 120 0RF furosemide 20 mg Tablet 20 mg PO QAM 30 Days Qty: 30 0RF prednisolone 15 mg/5 mL solution 40 mg PO QAM Qty: 100 3RF Rx Instructions: STARTED 12/24/22 FOR 7 DAYS nadolol 20 mg tablet 20 mg PO DAILY 14 Days Qty: 14 1RF Referrals Referrals: PCP,NO [Primary Care Provider] -
[2022-12-31] MEDS ORDERED: SODIUM CHLORIDE 0.9% 1000ML 500 ML IV ONE (16:29)
[2022-12-31] MEDS ORDERED: CEFEPIME 2,000 MG/20 ML VIAL IV STA (16:33)
--- NOTE | 2022-12-31 16:44 | XRay Report ---
XR chest 1V not portable CLINICAL HISTORY: hypotension TECHNIQUE: Single frontal radiograph of the chest was obtained. Comparison: Comparison is made to chest radiograph 12/21/2022 FINDINGS: No lines and tubes are seen. Cardiomegaly is noted. The lungs are clear. No evidence of pleural effus ion or pneumothorax. IMPRESSION: No acute chest disease. ACT 112: Negative or not required by law. Electronically signed by: Sd Giang M.D. 12/31/2022 4:42 PM
[2022-12-31 16:54] LABS: Hematocrit (blood only) 38.2 % (42.0-52.0); Mean Corpuscular Hemoglobin 40.3 pg (25.0-34.0); Mean Corpuscular Hgb Conc 36.6 g/dL (32.0-36.0); Mean Corpuscular Volume 110.1 fL (80.0-100.0); Mean Platelet Volume 12.4 fL (9.4-12.4); Platelet Count 124 K/uL (130-400); RDW Coefficient of Variation 14.8 % (11.5-14.5); RDW Standard Deviation 60.1 fL (36.4-46.3); Red Blood Count 3.47 M/uL (4.70-6.10); White Blood Count 21.33 K/ul (4.8-10.8)
[2022-12-31 17:21] LABS: Basophils # (auto) 0.03 K/uL (0-0.2); Basophils % (auto) 0.1 %; Echinocytes 2+; Eosinophils # (auto) 0.02 K/uL (0-0.50); Eosinophils % (auto) 0.1 %; Immature Granulocytes # (auto) 0.49 K/uL (0.01-0.20); Immature Granulocytes % (auto) 2.3 %; Lymphocytes # (auto) 0.92 K/uL (1.2-3.4); Lymphocytes % (auto) 4.3 %; Macrocytosis Present; Monocytes # (auto) 0.58 K/uL (0.11-0.59); Monocytes % (auto) 2.7 %; Neutrophils # (auto) 19.29 K/uL (1.40-6.50); Neutrophils % (auto) 90.5 %
[2022-12-31] MEDS ORDERED: SODIUM CHLORIDE 0.9% 1000ML 1,000 ML IV ONE ×2 (18:18→18:19)
[2022-12-31 18:28] LABS: Alanine Aminotransferase 134 U/L (7-52); Albumin Globulin Ratio 0.7 (0.9-2); Anion Gap 6 (3-11); Aspartate Aminotransferase 157 U/L (13-39); Bilirubin,Total 22.9 mg/dl (0.2-1.0); Calcium 7.4 mg/dl (8.6-10.3); Carbon Dioxide 20 mmol/L (21-32); Chloride 100 mmol/L (98-107); Globulin 2.8 gm/dl (2.5-4.0); Glucose 167 mg/dl (70-99(Fasting)); Potassium 4.7 mmol/L (3.5-5.1); Sodium 126 mmol/L (136-145); Total Protein 4.8 gm/dl (6.0-8.3)
[2022-12-31 18:36] LABS: INR 1.6 (0.9-1.1); Partial Thromboplastin Ratio 1.1; Partial Thromboplastin Time 31.7 Seconds (21.0-31.0); Prothrombin Time 17.5 Seconds (9.0-12.0)
[2022-12-31 19:46] LABS: Appearance Urine Cloudy (Clear); Bacteria Urine Automated Negative (Negative); Blood Urine Negative (Negative); Color Urine Dark Yellow; Glucose Urine UA Negative (Negative); Ketones Urine Negative (Negative); Leukocyte Esterase Urine 1+ (Negative); Nitrite Urine Positive (Negative); Protein Urine Negative (Negative); Specific Gravity Urine 1.018 (1.000-1.030); Urobilinogen Urine Negative (Negative); pH Urine 5.5 (4.5-7.5)
[2022-12-31 19:48] LABS: Bilirubin Urine 3+ (Negative)
--- NOTE | 2022-12-31 19:59 | CT Scan Report ---
Exam(s): CT ABDOMEN + PELVIS Without Contrast EXAM: CT Abdomen and Pelvis Without Intravenous Contrast CLINICAL HISTORY: Reason for exam: right sided pain. TECHNIQUE: Axial computed tomography images of the abdomen and pelvis without intravenous contrast. CTDI is 79.15 mGy and DLP is 1915.01 mGy-cm. Automated exposure control was utilized for the study. A dose lowering technique was utilized adhering to the principles of ALARA. COMPARISON: CT abdomen/pelvis on 12/21/2022 FINDINGS: Lung bases: Elevation of the right hemidiaphragm. Right basilar atelectasis. ABDOMEN: Liver: Cirrhotic liver. Probable heterogeneous hepatic steatosis. Hepatomegaly. Gallbladder and bile ducts: Underdistended gallbladder with irregular wall thickening again noted. This could be secondary to underlying liver disease, but neoplasm is not excluded. No ductal dilation. Pancreas: Unremarkable. No ductal dilation. Spleen: Mild splenomegaly. Adrenals: Unremarkable. No mass. Kidneys and ureters: Unremarkable. No obstructing stones. No hydronephrosis. Stomach and bowel: Evaluation of the stomach is limited by underdistention. Underdistended colon limits evaluation. No small bowel obstruction. No mucosal thickening. PELVIS: Appendix: Normal appendix. Bladder: Underdistended bladder limits evaluation. No stones. Reproductive: Unremarkable as visualized. ABDOMEN and PELVIS: Intraperitoneal space: Large amount of ascites. No free air. Bones/joints: Degenerative changes of the spine. No acute fracture. No dislocation. Soft tissues: Body wall edema. Vasculature: Mild atherosclerotic changes of the vasculature. No aortic aneurysm. Varices. Lymph nodes: Unremarkable. No enlarged lymph nodes. IMPRESSION: 1. Large amount of ascites. 2. Underdistended gallbladder with irregular wall thickening again noted. This could be secondary to underlying liver disease, but neoplasm is not excluded. 3. Cirrhotic liver. Probable heterogeneous hepatic steatosis. Hepatomegaly. 4. Mild splenomegaly. Varices. Electronically signed by: Amy Mclaughlin M.D. 12/31/22 19:58 PM
--- NOTE | 2022-12-31 21:02 | History & Physical Report ---
Date of Service December 31, 2022 Assessment & Plan (1) Alcoholic hepatitis with ascites: Plan: -Admit to the PCU on tele -Currently stable and cognitively intact -Was sent to the ED at the recommendation GI after having outpatient labs drawn yesterday -INR, total bili, and LFTs are not significantly increased compared to discharge -Spoke with infection control rn Order Puller, appreciate their assistance, ok to keep patient here for continued management at this time -While he has a leukocytosis, he is without significant abd pain and without urinary symptoms, no other signs of infection on chest xray or CT of the abd/pelvis -Leukocytosis is likely related to recent steroid use since last discharge -S/P 2.5L NSS, will hold additional IV fluids at this time as he will likely continue to 3rd space with his low albumin -S/P one dose of cefepime in the ED, will hold additional abx for now as he does not appear to have an infectious source at this time -Patient will need another paracentesis, order placed and will order gram stain/culture + cell count -Gastroenterology consult placed -Will continue his steroids at this time to prevent risk of possible adrenal insufficiency -Will hold lasix, spironolactone, and nadolol tonight as he already had today's doses and want to prevent further hypotension overnight -May need albumin if his pressures continue to drop -Hold chemical DVT PPX for now in preparation of paracentesis -AM CBC, CMP, Mag, PT/INR (2) Liver cirrhosis: Plan: -Continue to trend daily LFT's -Follow peritoneal fluid studies -GI consult placed (3) Elevated INR: Plan: -At 1.6 today, no signs of bleeding -Continue to monitor daily (4) Alcohol use disorder: Plan: -Has not had a drink since last admission, is not having cravings -Continue to stress the importance of cessation in order to be eligible for liver transplant Plan The patient was discussed with Dr. Wilkinson at the time of the admission History of Present Illness Chief Complaint: Abnormal outpatient labs Primary Care Provider: NO PCP Charles Donald is a 52 year old male with a PMH significant for alcoholic hepatitis with recently diagnosed cirrhosis, chronic hyponatremia, and alcohol abuse who presented to the [facility] ED on 12/31 at the recommendation of his G astroenterologist for abnormal outpatient labs. In the ED the patient was noted to be hypotensive at 75/56 with HR in the 50's. Labs were significant for a leukocytosis of 21 with left shift of 19, platelets of 124, INR of 1.6, sodium of 126, corrected calcium of 9.0, AST of 157, ALT of 134, albumin of 2.0, and UA with dark/cloudy urine, nitrite positive, 3+ bilirubin, 1+ leukocyte esterase, but negative bacteria. Chest xray was read as "No acute chest disease.". Ct of the abdomen/pelvis was read as "1. Large amount of ascites. 2. Underdistended gallbladder with irregular wall thickening again noted. This could be secondary to underlying liver disease, but neoplasm is not excluded. 3. Cirrhotic liver. Probable heterogeneous hepatic steatosis.Hepatomegaly.4. Mild splenomegaly. Varices.". Prior to admission the patient was given 2.5L NSS and a dose of Cefepime. At the time of the exam the patient was sitting in bed in no acute distress. He states since his discharge on 12/24 he varies on how he feels each day. Today he is actually feeling well. He states that he has been getting progressively more jaundiced and volume overloaded since last admission. He has not had a drink of alcohol since discharge and is very motivated to stay sober so he can be evaluated for possible liver transplant. He has been taking his medications as prescribed since discharge. He came to the ED today at the recommendation of his Gastroenterology team as they told him "my labs were getting worse". He denies recent fever, chills, chest pain, SOB, cough, dysuria, increased urinary frequency, diarrhea, melena, and recent trauma. When asked about abdominal pain, he states that he will have intermittent, dull/achy pain, more in the RUQ and RLL. At it's most severe it is a 4-5/10; he is currently abdominal pain free. He wishes to be a full code and would want his father to make medical decisions for him if he could not make them himself. Please refer to Dr. Wilkinson's attestation for any changes to the treatment plan Allergies Allergy/AdvReac Type Severity Reaction Status Date / Time No Known Allergies Allergy Verified 12/31/22 18:48 Home Medications Medication Instructions Recorded Confirmed Type furosemide 20 mg tablet 20 mg PO QAM 30 days #30 tabs 12/24/22 12/31/22 Rx nadolol 20 mg tablet 20 mg PO DAILY 14 days #14 tabs 12/24/22 12/31/22 Rx pantoprazole 40 mg tablet,delayed 40 mg PO BID 60 days #120 tabs 12/24/22 12/31/22 Rx release prednisolone 15 mg/5 mL oral 40 mg (13.3333 mL) PO QAM #100 mL 12/24/22 12/31/22 Rx solution spironolactone 25 mg tablet 50 mg PO QAM 30 days #60 tabs 12/24/22 12/31/22 Rx Past Med/Surg History Medical History Acute hyponatremia Alcohol use disorder Alcoholic hepatitis Alcoholic hepatitis with ascites Elevated INR Surgical History No pertinent past surgical history Social History Smoking Status: Never smoker Hx Alcohol Use: Yes Alcohol type: beer, wine and hard liquor Hx Substance Use: No Preferred Language: Bulgarian Communication Ability: Effective Architecture Professor Required: No Beliefs That Will Affect Care: None Current Living Situation: Parent Feels Safe at Home: Yes Assistive Devices: None Physical Exam Physical Exam: Physical Exam: General: In no acute distress, older than stated age, chronically ill appearing not non-toxic HEENT: Normocephalic, atraumatic, significant scleral icterus, pupils around round, symmetrical, and reactive to light, dry mucus membranes, trachea midline, no thyromegaly Chest/Pulm: No respiratory distress, symmetrical chest expansion, clear breath sounds throughout Cardiac: bradycardic rate, regular rhythm, no murmurs noted Abdomen: Significant ascites but negative for bruising, normoactive bowel sounds, soft, mildly tender to deep palpation in the RUQ and RLL Musculoskeletal: Symmetrical and without signs of acute trauma, upper and lower extremities with full ROM, no atrophy, spasticity, or flaccidity Extremities: Radial, dorsalis pedis, and posterior tibial pulses are intact and symmetrical, 2+ edema noted in the BL LE's Skin: Significant jaundice throughout Neuro: Alert and oriented to person, place, month, year, and president, no focal defects, CN II-XII tested and intact, finger to nose test negative, no tremors noted Psych: No acute distress, calm and cooperative during the exam Results & Data Results & Data Vital Signs (Past 12 Hours) Vital Signs Temp Pulse Resp BP Pulse Ox O2 Del Method 12/31/22 20:40 54 L 18 99 12/31/22 20:31 88/57 L 12/31/22 20:31 54 L 17 99 12/31/22 20:30 54 L 16 98 12/31/22 20:20 65 17 98 12/31/22 20:10 55 L 17 99 12/31/22 20:01 55 L 19 98 12/31/22 20:01 82/59 L 12/31/22 20:00 54 L 15 12/31/22 19:50 54 L 15 99 12/31/22 19:40 56 L 14 98 12/31/22 20:18 62 12/31/22 19:30 54 L 20 97 12/31/22 19:20 55 L 14 99 12/31/22 19:10 55 L 19 96 12/31/22 19:08 55 L 18 98 12/31/22 19:08 91/64 L 12/31/22 19:03 57 L 20 96 12/31/22 18:50 57 L 17 12/31/22 18:40 55 L 18 12/31/22 18:30 54 L 17 97 12/31/22 18:30 98/66 L 12/31/22 18:25 62 13 12/31/22 18:10 56 L 18 97 12/31/22 18:01 57 L 20 98 12/31/22 18:01 96/53 L 12/31/22 18:00 56 L 24 99 12/31/22 17:50 57 L 15 98 12/31/22 17:40 58 L 23 97 12/31/22 17:30 58 L 15 97 12/31/22 17:30 75/56 L 12/31/22 17:20 23 97 12/31/22 17:11 59 L 19 98 12/31/22 17:11 91/57 L 12/31/22 17:10 58 L 16 12/31/22 17:00 57 L 17 97 12/31/22 16:50 57 L 18 97 12/31/22 16:40 59 L 19 100 12/31/22 16:30 58 L 15 99 12/31/22 16:30 90/58 L 12/31/22 16:25 58 L 16 99 12/31/22 16:27 59 L 12/31/22 14:20 36.8 C 55 L 18 82/57 L 98 Room Air Laboratory Results Abnormal lab results 12/31/22 12/31/22 12/31/22 Range/Units 17:43 17:43 18:25 WBC (4.8-10.8) K/ul RBC (4.70-6.10) M/uL Hct (42.0-52.0) % MCV (80.0-100.0) fL MCH (25.0-34.0) pg MCHC (32.0-36.0) g/dL RDW Std Deviation (36.4-46.3) fL RDW Coeff of Rohan (11.5-14.5) % Plt Count (130-400) K/uL Neut # (Auto) (1.40-6.50) K/uL Lymph # (Auto) (1.2-3.4) K/uL Immature Gran # (Auto) (0.01-0.20) K/uL PT 17.5 H (9.0-12.0) Seconds INR 1.6 H (0.9-1.1) APTT 31.7 H (21.0-31.0) Seconds Sodium 126 L (136-145) mmol/L Carbon Dioxide 20 L (21-32) mmol/L Glucose 167 H (70-99(Fasting)) mg/dl Calcium 7.4 L (8.6-10.3) mg/dl Total Bilirubin 22.9 H (0.2-1.0) mg/dl AST 157 H (13-39) U/L ALT 134 H (7-52) U/L Total Protein 4.8 L (6.0-8.3) gm/dl Albumin 2.0 L (3.4-5.0) gm/dl Albumin/Globulin Ratio 0.7 L (0.9-2) Urine Appearance Cloudy A (Clear) Urine Nitrite Positive A (Negative) Urine Bilirubin 3+ H (Negative) Ur Leukocyte Esterase 1+ H (Negative) Urine RBC (Auto) 10-30 H (0-4) /hpf U Hyaline Cast (Auto) 5-10 H (0-5) /lpf U Epithel Cells (Auto) 10-20 H (0-5) /lpf 12/31/22 Range/Units Unknown WBC 21.33 H (4.8-10.8) K/ul RBC 3.47 L (4.70-6.10) M/uL Hct 38.2 L (42.0-52.0) % MCV 110.1 H (80.0-100.0) fL MCH 40.3 H (25.0-34.0) pg MCHC 36.6 H (32.0-36.0) g/dL RDW Std Deviation 60.1 H (36.4-46.3) fL RDW Coeff of Rohan 14.8 H (11.5-14.5) % Plt Count 124 L (130-400) K/uL Neut # (Auto) 19.29 H (1.40-6.50) K/uL Lymph # (Auto) 0.92 L (1.2-3.4) K/uL Immature Gran # (Auto) 0.49 H (0.01-0.20) K/uL PT (9.0-12.0) Seconds INR (0.9-1.1) APTT (21.0-31.0) Seconds Sodium (136-145) mmol/L Carbon Dioxide (21-32) mmol/L Glucose (70-99(Fasting)) mg/dl Calcium (8.6-10.3) mg/dl Total Bilirubin (0.2-1.0) mg/dl AST (13-39) U/L ALT (7-52) U/L Total Protein (6.0-8.3) gm/dl Albumin (3.4-5.0) gm/dl Albumin/Globulin Ratio (0.9-2) Urine Appearance (Clear) Urine Nitrite (Negative) Urine Bilirubin (Negative) Ur Leukocyte Esterase (Negative) Urine RBC (Auto) (0-4) /hpf U Hyaline Cast (Auto) (0-5) /lpf U Epithel Cells (Auto) (0-5) /lpf Diagnostic Findings Chest X-Ray 12/31/22 14:25 XR chest 1V not portable CLINICAL HISTORY: hypotension TECHNIQUE: Single frontal radiograph of the chest was obtained. Comparison: Comparison is made to chest radiograph 12/21/2022 FINDINGS: No lines and tubes are seen. Cardiomegaly is noted. The lungs are clear. No evidence of pleural effusion or pneumothorax. IMPRESSION: No acute chest disease. ACT 112: Negative or not required by law. Electronically signed by: Sd Giang M.D. 12/31/2022 4:42 PM Abdomen/Pelvis CT 12/31/22 18:47 Exam(s): CT ABDOMEN + PELVIS Without Contrast EXAM: CT Abdomen and Pelvis Without Intravenous Contrast CLINICAL HISTORY: Reason for exam: right sided pain. TECHNIQUE: Axial computed tomography images of the abdomen and pelvis without intravenous contrast. CTDI is 79.15 mGy and DLP is 1915.01 mGy-cm. Automated exposure control was utilized for the study. A dose lowering technique was utilized adhering to the principles of ALARA. COMPARISON: CT abdomen/pelvis on 12/21/2022 FINDINGS: Lung bases: Elevation of the right hemidiaphragm. Right basilar atelectasis. ABDOMEN: Liver: Cirrhotic liver. Probable heterogeneous hepatic steatosis. Hepatomegaly. Gallbladder and bile ducts: Underdistended gallbladder with irregular wall thickening again noted. This could be secondary to underlying liver disease, but neoplasm is not excluded. No ductal dilation. Pancreas: Unremarkable. No ductal dilation. Spleen: Mild splenomegaly. Adrenals: Unremarkable. No mass. Kidneys and ureters: Unremarkable. No obstructing stones. No hydronephrosis. Stomach and bowel: Evaluation of the stomach is limited by underdistention. Underdistended colon limits evaluation. No small bowel obstruction. No mucosal thickening. PELVIS: Appendix: Normal appendix. Bladder: Underdistended bladder limits evaluation. No stones. Reproductive: Unremarkable as visualized. ABDOMEN and PELVIS: Intraperitoneal space: Large amount of ascites. No free air. Bones/joints: Degenerative changes of the spine. No acute fracture. No dislocation. Soft tissues: Body wall edema. Vasculature: Mild atherosclerotic changes of the vasculature. No aortic aneurysm. Varices. Lymph nodes: Unremarkable. No enlarged lymph nodes. IMPRESSION: 1. Large amount of ascites. 2. Underdistended gallbladder with irregular wall thickening again noted. This could be secondary to underlying liver disease, but neoplasm is not excluded. 3. Cirrhotic liver. Probable heterogeneous hepatic steatosis. Hepatomegaly. 4. Mild splenomegaly. Varices. Electronically signed by: Amy Mclaughlin M.D. 12/31/22 19:58 PM ECG Additional Comments: Sinus bradycardia Low voltage QRS Borderline ECG When compared with ECG of 21-DEC-2022 10:39, Premature ventricular complexes are no longer Present Vent. rate has decreased BY 53 BPM Nonspecific T wave abnormality no longer evident in Anterior leads QT has shortened Code Status & VTE Plan Code Status Full code VTE Prophylaxis Plan VTE Prophylaxis will be ordered: Yes Supervising Physician Co-Signing Physician Notes Patient seen and examined, chart reviewed, case discussed with ELISA Mckeon and I agree with the assessment and plan as documented above. In brief, patient is a 52-year-old male with history of alcoholic cirrhosis with recent admission to [facility] from 12/21/2022 - 12/24/2022 for acute alcoholic hepatitis. During that admission patient had a paracentesis with 2.1 L of straw-colored fluid removednegative for SBP. He was started on spironolactone, Lasix and nadolol. He was also started on prednisolone for treatment of acute alcoholic hepatitis with elevated Madrey discriminant function. Patient was instructed to follow-up with GI outpatient for repeat blood work. He had his repeat blood work today and was instructed to come to the hospital. Patient overall feels well today. He denies fever, chills, rigors, chest pain, cough, shortness of breath. He reports intermittent abdominal pain as well as worsening jaundice, ascites and edema. He continues to abstain from alcohol with last drink being prior to his 12/21/2022 admission. Patient was hypotensive upon arrival to the ER at 75/56 with heart rate in the 50s. He was administered 2.5 L of crystalloid, normal saline) with improvement in his blood pressure Otherwise, physical exam reveals a chronically ill-appearing 52-year-old male with notable jaundice and scleral icterus Dry mucous membranes, neck supple + S1, S2, regular, no murmur/rub/gallops Lungs CTA with diminished breath sounds in bilateral bases Abdomen is soft, nontender with exception of some right upper quadrant tenderness with deep palpation. Mild distention with bulging flanks. Extremities with 3+ pitting edema right greater than left Labs and images reviewed. Significant for WBC = 21.3, platelets = 124, INR = 1.6, T. bili = 22.9, AST = 157, ALT = 134 CT of the abdomen reveals a large amount of ascites and cirrhotic liver with hepatomegaly and mild splenomegaly. Assessment/[id number] male with alcoholic hepatitis and liver cirrhosis with varices presenting to the ED at the recommendation of GI for results of outpatient labs. Labs are largely similar to prior values. Patient overall feels improved although does report increased ascites and edema. CT as above with large amount of ascites appreciated. Hypotension has improved with volume expansion Will admit to PCU Continue prednisolone We will hold spironolactone and Lasix for now We will hold nadolol for now Paracentesis for the morning. Patient will likely need albumin following this procedure. Resumption and escalation of diuretics per day team following paracentesis Remainder of plan as above PG Care Time/CCT Total # of Minutes Spent Total Time Spent with Patient: Total time spent is greater than 50% in coordination of care (as documented) at patient's floor/unit and/or counseling patient: C[place] [address] INT INP/OBS CARE 3/75MIN Patient Type Established Medical Decision Making High Complexity Diagnoses Alcoholic hepatitis with ascites K70.11 Liver cirrhosis K74.60 Elevated INR R79.1 Alcohol use disorder F10.90
[2022-12-31] MEDS: PANTOprazole 40 MG TAB PO SCH (23:31)
[2023-01-01 06:56] LABS: Alanine Aminotransferase 140 U/L (7-52); Albumin Globulin Ratio 0.7 (0.9-2); Albumin Level 1.9 gm/dl (3.4-5.0); Anion Gap 6 (3-11); Aspartate Aminotransferase 162 U/L (13-39); Calcium 7.5 mg/dl (8.6-10.3); Carbon Dioxide 23 mmol/L (21-32); Chloride 102 mmol/L (98-107); Globulin 2.7 gm/dl (2.5-4.0); Glucose 130 mg/dl (70-99(Fasting)); Potassium 4.6 mmol/L (3.5-5.1); Sodium 131 mmol/L (136-145); Total Protein 4.6 gm/dl (6.0-8.3)
[2023-01-01 06:58] LABS: Basophils # (auto) 0.03 K/uL (0-0.2); Basophils % (auto) 0.1 %; Eosinophils # (auto) 0.02 K/uL (0-0.50); Eosinophils % (auto) 0.1 %; Hematocrit (blood only) 32.6 % (42.0-52.0); Hemoglobin 11.9 g/dl (14.0-18.0); Lymphocytes # (auto) 0.63 K/uL (1.2-3.4); Lymphocytes % (auto) 3.1 %; Mean Corpuscular Hemoglobin 40.1 pg (25.0-34.0); Mean Corpuscular Hgb Conc 36.5 g/dL (32.0-36.0); Mean Corpuscular Volume 109.8 fL (80.0-100.0); Mean Platelet Volume 12.6 fL (9.4-12.4); Monocytes % (auto) 4.5 %; Neutrophils # (auto) 18.36 K/uL (1.40-6.50); Neutrophils % (auto) 91.2 %; Platelet Count 84 K/uL (130-400); Platelet Estimate Decreased (Normal); RDW Coefficient of Variation 14.3 % (11.5-14.5); RDW Standard Deviation 58.3 fL (36.4-46.3); Red Blood Count 2.97 M/uL (4.70-6.10); White Blood Count 20.14 K/ul (4.8-10.8)
[2023-01-01 07:26] LABS: INR 1.6 (0.9-1.1); Prothrombin Time 17.4 Seconds (9.0-12.0)
[2023-01-01] MEDS: PANTOprazole 40 MG TAB PO SCH (08:29)
[2023-01-01] MEDS ORDERED: prednisoLONE sod phosphate 15 MG/5 ML PO SCH (09:00)
--- NOTE | 2023-01-01 09:35 | Gastrointestinal Consultation ---
Date of Consultation January 01, 2023 Assessment & Plan (1) Alcoholic hepatitis with ascites: Pleasant man with alcoholic hepatitis and ascites with somewhat worsening labs and presenting hypotension. In a patient with ascites who has a deterioration in his condition it is mandatory to get a paracentesis to rule out SBP. His elevation in his bilirubin is not so much of a concern as there really isn't anything we can do about it other than the steroids he is on (if they in fact help). Jaundice does not hurt an adult other than if there is biliary obstruction. The better measure of hepatic function is his INR which is elevated at 1.6 but not worrisome. For now I agree with paracentesis. If he does well after that and there is no signs of SBP then he may be able to go home tomorrow. His bilirubin today is basically the same level it was when he left the hospital last week. He will have ups and downs like this perhaps for months as his alcoholic hepatitis resolves. History of Present Illness Reason for Consultation: alcoholic hepatitis Attending Physician: Dimitrios Perez MD History of Present Illness 52 year old man who was just recently discharged after hospitalization for alcoholic hepatitis and sent home on steroids. He was readmitted with weakness and "worsening of his labs". He did have hypotension on initial presentation to the hospital. Currently he says he feels well. He has been having some abdominal discomfort and he says his abdomen is more swollen than before. CT does confirm worsening ascites. He claims to not have had any alcohol after discharge. He is not showing any signs of bleeding. Allergies Allergy/AdvReac Type Severity Reaction Status Date / Time No Known Allergies Allergy Verified 12/31/22 18:48 Home Medications Medication Instructions Recorded Confirmed Type furosemide 20 mg tablet 20 mg PO QAM 30 days #30 tabs 12/24/22 12/31/22 Rx nadolol 20 mg tablet 20 mg PO DAILY 14 days #14 tabs 12/24/22 12/31/22 Rx pantoprazole 40 mg tablet,delayed 40 mg PO BID 60 days #120 tabs 12/24/22 12/31/22 Rx release prednisolone 15 mg/5 mL oral 40 mg (13.3333 mL) PO QAM #100 mL 12/24/22 12/31/22 Rx solution spironolactone 25 mg tablet 50 mg PO QAM 30 days #60 tabs 12/24/22 12/31/22 Rx Patient History Medical History Acute hyponatremia Alcohol use disorder Alcoholic hepatitis Alcoholic hepatitis with ascites Elevated INR Surgical History No pertinent past surgical history Social History Smoking Status: Never smoker Do You Dip or Chew Tobacco: Yes; Hx Alcohol Use: No Hx Substance Use: Yes (No longer uses substance.) Preferred Language: Kittitian Communication Ability: Effective Counterintelligence Analyst Required: No Beliefs That Will Affect Care: None Current Living Situation: Parent Feels Safe at Home: Yes Assistive Devices: None Review of Systems Review of Systems: All systems reviewed & are unremarkable except as noted in HPI & below Physical Exam Constitutional: WD/WN, vitals as above no acute distress Eyes: PERRL; sclerae not anicteric ENMT: external ear and nose normal, oropharynx normal Neck: trachea midline, no thyromegaly Respiratory: normal respiratory effort, lungs clear to auscultation Cardiovascular: RRR, no murmur, no edema Gastrointestinal (Abdomen): Inspection/Auscultation: abdomen normal to inspection and + abdomen distended Percussion/Palpation: + ascites; abdomen nontender Musculoskeletal: Extremities: no cyanosis and no clubbing Skin: no rashes, warm and dry + jaundice Neurologic: PERRL, EOMI, accommodation nl, no face palsy, no dysarthria Psychiatric: Orientation: alert and oriented x 3 Results & Data Vital Signs (Past 12 Hours) Vital Signs Temp Pulse Pulse Resp BP BP BP 01/01/23 07:59 36.6 C 55 L 19 88/55 L 01/01/23 07:27 58 L 01/01/23 03:34 36.3 C L 59 L 16 94/61 L 12/31/22 23:15 56 L 12/31/22 22:59 12/31/22 22:59 57 L 18 103/64 12/31/22 23:05 36.5 C 18 103/64 12/31/22 22:30 55 L 16 12/31/22 22:30 95/63 L 12/31/22 22:20 55 L 14 12/31/22 22:10 54 L 16 12/31/22 22:00 55 L 16 12/31/22 22:00 105/71 12/31/22 21:50 55 L 12 12/31/22 21:40 54 L 17 12/31/22 21:30 55 L 17 12/31/22 21:30 101/69 Pulse Ox O2 Del Method 01/01/23 07:59 96 Room Air 01/01/23 07:27 01/01/23 03:34 97 Room Air 12/31/22 23:15 12/31/22 22:59 Room Air 12/31/22 22:59 98 Room Air 12/31/22 23:05 98 Room Air 12/31/22 22:30 97 12/31/22 22:30 12/31/22 22:20 98 12/31/22 22:10 97 12/31/22 22:00 98 12/31/22 22:00 12/31/22 21:50 99 12/31/22 21:40 98 12/31/22 21:30 99 12/31/22 21:30 Laboratory Results 01/01/23 01/01/23 01/01/23 Range/Units 05:58 05:58 05:58 WBC 20.14 H (4.8-10.8) K/ul RBC 2.97 L (4.70-6.10) M/uL Hgb 11.9 L (14.0-18.0) g/dl Hct 32.6 L (42.0-52.0) % MCV 109.8 H (80.0-100.0) fL MCH 40.1 H (25.0-34.0) pg MCHC 36.5 H (32.0-36.0) g/dL RDW Std Deviation 58.3 H (36.4-46.3) fL RDW Coeff of Rohan 14.3 (11.5-14.5) % Plt Count 84 L (130-400) K/uL MPV 12.6 H (9.4-12.4) fL Immature Gran % (Auto) 1.0 % Neut % (Auto) 91.2 % Lymph % (Auto) 3.1 % [place] % (Auto) 4.5 % Eos % (Auto) 0.1 % Baso % (Auto) 0.1 % Neut # (Auto) 18.36 H (1.40-6.50) K/uL Lymph # (Auto) 0.63 L (1.2-3.4) K/uL [place] # (Auto) 0.90 H (0.11-0.59) K/uL Eos # (Auto) 0.02 (0-0.50) K/uL Baso # (Auto) 0.03 (0-0.2) K/uL Immature Gran # (Auto) 0.20 (0.01-0.20) K/uL Platelet Estimate Decreased L (Normal) Macrocytosis Echinocytes PT 17.4 H (9.0-12.0) Seconds INR 1.6 H (0.9-1.1) APTT (21.0-31.0) Seconds PTT Ratio Sodium 131 L (136-145) mmol/L Potassium 4.6 (3.5-5.1) mmol/L Chloride 102 (98-107) mmol/L Carbon Dioxide 23 (21-32) mmol/L Anion Gap 6 (3-11) BUN TNP Creatinine TNP Est Cr Clr Drug Dosing Not Reportable Est GFR ( Amer) Not Reportable Est GFR (Non-Af Amer) Not Reportable BUN/Creatinine Ratio TNP Glucose 130 H (70-99(Fasting)) mg/dl Lactate (0.4-2.0) mmol/L Calcium 7.5 L (8.6-10.3) mg/dl Magnesium TNP Total Bilirubin 23.0 H (0.2-1.0) mg/dl AST 162 H (13-39) U/L ALT 140 H (7-52) U/L Alkaline Phosphatase TNP Troponin I High Sens Total Protein 4.6 L (6.0-8.3) gm/dl Albumin 1.9 L (3.4-5.0) gm/dl Globulin 2.7 (2.5-4.0) gm/dl Albumin/Globulin Ratio 0.7 L (0.9-2) Lipase Urine Color Urine Appearance (Clear) Urine pH (4.5-7.5) Ur Specific [place] (1.000-1.030) Urine Protein (Negative) Urine Glucose (UA) (Negative) Urine Ketones (Negative) Urine Blood (Negative) Urine Nitrite (Negative) Urine Bilirubin (Negative) Urine Urobilinogen (Negative) Ur Leukocyte Esterase (Negative) Urine WBC (Auto) (0-5) /hpf Urine RBC (Auto) (0-4) /hpf U Hyaline Cast (Auto) (0-5) /lpf U Epithel Cells (Auto) (0-5) /lpf Urine Bacteria (Auto) (Negative) SARS-CoV-2, RNA, NAAT (NEGATIVE) 12/31/22 12/31/22 12/31/22 Range/Units Unknown Unknown Unknown WBC 21.33 H (4.8-10.8) K/ul RBC 3.47 L (4.70-6.10) M/uL Hgb 14.0 (14.0-18.0) g/dl Hct 38.2 L (42.0-52.0) % MCV 110.1 H (80.0-100.0) fL MCH 40.3 H (25.0-34.0) pg MCHC 36.6 H (32.0-36.0) g/dL RDW Std Deviation 60.1 H (36.4-46.3) fL RDW Coeff of Rohan 14.8 H (11.5-14.5) % Plt Count 124 L (130-400) K/uL MPV 12.4 (9.4-12.4) fL Immature Gran % (Auto) 2.3 % Neut % (Auto) 90.5 % Lymph % (Auto) 4.3 % [place] % (Auto) 2.7 % Eos % (Auto) 0.1 % Baso % (Auto) 0.1 % Neut # (Auto) 19.29 H (1.40-6.50) K/uL Lymph # (Auto) 0.92 L (1.2-3.4) K/uL [place] # (Auto) 0.58 (0.11-0.59) K/uL Eos # (Auto) 0.02 (0-0.50) K/uL Baso # (Auto) 0.03 (0-0.2) K/uL Immature Gran # (Auto) 0.49 H (0.01-0.20) K/uL Platelet Estimate (Normal) Macrocytosis Present Echinocytes 2+ PT Cancelled (9.0-12.0) Seconds INR Cancelled (0.9-1.1) APTT Cancelled (21.0-31.0) Seconds PTT Ratio Cancelled Sodium Cancelled (136-145) mmol/L Potassium Cancelled (3.5-5.1) mmol/L Chloride Cancelled (98-107) mmol/L Carbon Dioxide Cancelled (21-32) mmol/L Anion Gap Cancelled (3-11) BUN Cancelled Creatinine Cancelled Est Cr Clr Drug Dosing Cancelled Est GFR ( Amer) Cancelled Est GFR (Non-Af Amer) Cancelled BUN/Creatinine Ratio Cancelled Glucose Cancelled (70-99(Fasting)) mg/dl Lactate (0.4-2.0) mmol/L Calcium Cancelled (8.6-10.3) mg/dl Magnesium Cancelled Total Bilirubin Cancelled (0.2-1.0) mg/dl AST Cancelled (13-39) U/L ALT Cancelled (7-52) U/L Alkaline Phosphatase Cancelled Troponin I High Sens Cancelled Total Protein Cancelled (6.0-8.3) gm/dl Albumin Cancelled (3.4-5.0) gm/dl Globulin Cancelled (2.5-4.0) gm/dl Albumin/Globulin Ratio Cancelled (0.9-2) Lipase Cancelled Urine Color Urine Appearance (Clear) Urine pH (4.5-7.5) Ur Specific [place] (1.000-1.030) Urine Protein (Negative) Urine Glucose (UA) (Negative) Urine Ketones (Negative) Urine Blood (Negative) Urine Nitrite (Negative) Urine Bilirubin (Negative) Urine Urobilinogen (Negative) Ur Leukocyte Esterase (Negative) Urine WBC (Auto) (0-5) /hpf Urine RBC (Auto) (0-4) /hpf U Hyaline Cast (Auto) (0-5) /lpf U Epithel Cells (Auto) (0-5) /lpf Urine Bacteria (Auto) (Negative) SARS-CoV-2, RNA, NAAT (NEGATIVE) 12/31/22 12/31/22 12/31/22 Range/Units 21:00 18:25 17:43 WBC (4.8-10.8) K/ul RBC (4.70-6.10) M/uL Hgb (14.0-18.0) g/dl Hct (42.0-52.0) % MCV (80.0-100.0) fL MCH (25.0-34.0) pg MCHC (32.0-36.0) g/dL RDW Std Deviation (36.4-46.3) fL RDW Coeff of Rohan (11.5-14.5) % Plt Count (130-400) K/uL MPV (9.4-12.4) fL Immature Gran % (Auto) % Neut % (Auto) % Lymph % (Auto) % [place] % (Auto) % Eos % (Auto) % Baso % (Auto) % Neut # (Auto) (1.40-6.50) K/uL Lymph # (Auto) (1.2-3.4) K/uL [place] # (Auto) (0.11-0.59) K/uL Eos # (Auto) (0-0.50) K/uL Baso # (Auto) (0-0.2) K/uL Immature Gran # (Auto) (0.01-0.20) K/uL Platelet Estimate (Normal) Macrocytosis Echinocytes PT (9.0-12.0) Seconds INR (0.9-1.1) APTT (21.0-31.0) Seconds PTT Ratio Sodium 126 L (136-145) mmol/L Potassium 4.7 (3.5-5.1) mmol/L Chloride 100 (98-107) mmol/L Carbon Dioxide 20 L (21-32) mmol/L Anion Gap 6 (3-11) BUN TNP Creatinine TNP Est Cr Clr Drug Dosing Not Reportable Est GFR ( Amer) Not Reportable Est GFR (Non-Af Amer) Not Reportable BUN/Creatinine Ratio TNP Glucose 167 H (70-99(Fasting)) mg/dl Lactate (0.4-2.0) mmol/L Calcium 7.4 L (8.6-10.3) mg/dl Magnesium Total Bilirubin 22.9 H (0.2-1.0) mg/dl AST 157 H (13-39) U/L ALT 134 H (7-52) U/L Alkaline Phosphatase TNP Troponin I High Sens Total Protein 4.8 L (6.0-8.3) gm/dl Albumin 2.0 L (3.4-5.0) gm/dl Globulin 2.8 (2.5-4.0) gm/dl Albumin/Globulin Ratio 0.7 L (0.9-2) Lipase TNP Urine Color Dark Yellow Urine Appearance Cloudy A (Clear) Urine pH 5.5 (4.5-7.5) Ur Specific [place] 1.018 (1.000-1.030) Urine Protein Negative (Negative) Urine Glucose (UA) Negative (Negative) Urine Ketones Negative (Negative) Urine Blood Negative (Negative) Urine Nitrite Positive A (Negative) Urine Bilirubin 3+ H (Negative) Urine Urobilinogen Negative (Negative) Ur Leukocyte Esterase 1+ H (Negative) Urine WBC (Auto) 1-5 (0-5) /hpf Urine RBC (Auto) 10-30 H (0-4) /hpf U Hyaline Cast (Auto) 5-10 H (0-5) /lpf U Epithel Cells (Auto) 10-20 H (0-5) /lpf Urine Bacteria (Auto) Negative (Negative) SARS-CoV-2, RNA, NAAT NEGATIVE (NEGATIVE) 12/31/22 12/31/22 Range/Units 17:43 16:50 WBC (4.8-10.8) K/ul RBC (4.70-6.10) M/uL Hgb (14.0-18.0) g/dl Hct (42.0-52.0) % MCV (80.0-100.0) fL MCH (25.0-34.0) pg MCHC (32.0-36.0) g/dL RDW Std Deviation (36.4-46.3) fL RDW Coeff of Rohan (11.5-14.5) % Plt Count (130-400) K/uL MPV (9.4-12.4) fL Immature Gran % (Auto) % Neut % (Auto) % Lymph % (Auto) % [place] % (Auto) % Eos % (Auto) % Baso % (Auto) % Neut # (Auto) (1.40-6.50) K/uL Lymph # (Auto) (1.2-3.4) K/uL [place] # (Auto) (0.11-0.59) K/uL Eos # (Auto) (0-0.50) K/uL Baso # (Auto) (0-0.2) K/uL Immature Gran # (Auto) (0.01-0.20) K/uL Platelet Estimate (Normal) Macrocytosis Echinocytes PT 17.5 H (9.0-12.0) Seconds INR 1.6 H (0.9-1.1) APTT 31.7 H (21.0-31.0) Seconds PTT Ratio 1.1 Sodium (136-145) mmol/L Potassium (3.5-5.1) mmol/L Chloride (98-107) mmol/L Carbon Dioxide (21-32) mmol/L Anion Gap (3-11) BUN Creatinine Est Cr Clr Drug Dosing Est GFR ( Amer) Est GFR (Non-Af Amer) BUN/Creatinine Ratio Glucose (70-99(Fasting)) mg/dl Lactate 2.0 (0.4-2.0) mmol/L Calcium (8.6-10.3) mg/dl Magnesium Total Bilirubin (0.2-1.0) mg/dl AST (13-39) U/L ALT (7-52) U/L Alkaline Phosphatase Troponin I High Sens Total Protein (6.0-8.3) gm/dl Albumin (3.4-5.0) gm/dl Globulin (2.5-4.0) gm/dl Albumin/Globulin Ratio (0.9-2) Lipase Urine Color Urine Appearance (Clear) Urine pH (4.5-7.5) Ur Specific [place] (1.000-1.030) Urine Protein (Negative) Urine Glucose (UA) (Negative) Urine Ketones (Negative) Urine Blood (Negative) Urine Nitrite (Negative) Urine Bilirubin (Negative) Urine Urobilinogen (Negative) Ur Leukocyte Esterase (Negative) Urine WBC (Auto) (0-5) /hpf Urine RBC (Auto) (0-4) /hpf U Hyaline Cast (Auto) (0-5) /lpf U Epithel Cells (Auto) (0-5) /lpf Urine Bacteria (Auto) (Negative) SARS-CoV-2, RNA, NAAT (NEGATIVE) Diagnostic Findings Chest X-Ray 12/31/22 14:25 XR chest 1V not portable CLINICAL HISTORY: hypotension TECHNIQUE: Single frontal radiograph of the chest was obtained. Comparison: Comparison is made to chest radiograph 12/21/2022 FINDINGS: No lines and tubes are seen. Cardiomegaly is noted. The lungs are clear. No evidence of pleural effusion or pneumothorax. IMPRESSION: No acute chest disease. ACT 112: Negative or not required by law. Electronically signed by: Sd Giang M.D. 12/31/2022 4:42 PM Abdomen/Pelvis CT 12/31/22 18:47 Exam(s): CT ABDOMEN + PELVIS Without Contrast EXAM: CT Abdomen and Pelvis Without Intravenous Contrast CLINICAL HISTORY: Reason for exam: right sided pain. TECHNIQUE: Axial computed tomography images of the abdomen and pelvis without intravenous contrast. CTDI is 79.15 mGy and DLP is 1915.01 mGy-cm. Automated exposure control was utilized for the study. A dose lowering technique was utilized adhering to the principles of ALARA. COMPARISON: CT abdomen/pelvis on 12/21/2022 FINDINGS: Lung bases: Elevation of the right hemidiaphragm. Right basilar atelectasis. ABDOMEN: Liver: Cirrhotic liver. Probable heterogeneous hepatic steatosis. Hepatomegaly. Gallbladder and bile ducts: Underdistended gallbladder with irregular wall thickening again noted. This could be secondary to underlying liver disease, but neoplasm is not excluded. No ductal dilation. Pancreas: Unremarkable. No ductal dilation. Spleen: Mild splenomegaly. Adrenals: Unremarkable. No mass. Kidneys and ureters: Unremarkable. No obstructing stones. No hydronephrosis. Stomach and bowel: Evaluation of the stomach is limited by underdistention. Underdistended colon limits evaluation. No small bowel obstruction. No mucosal thickening. PELVIS: Appendix: Normal appendix. Bladder: Underdistended bladder limits evaluation. No stones. Reproductive: Unremarkable as visualized. ABDOMEN and PELVIS: Intraperitoneal space: Large amount of ascites. No free air. Bones/joints: Degenerative changes of the spine. No acute fracture. No dislocation. Soft tissues: Body wall edema. Vasculature: Mild atherosclerotic changes of the vasculature. No aortic aneurysm. Varices. Lymph nodes: Unremarkable. No enlarged lymph nodes. IMPRESSION: 1. Large amount of ascites. 2. Underdistended gallbladder with irregular wall thickening again noted. This could be secondary to underlying liver disease, but neoplasm is not excluded. 3. Cirrhotic liver. Probable heterogeneous hepatic steatosis. Hepatomegaly. 4. Mild splenomegaly. Varices. Electronically signed by: Amy Mclaughlin M.D. 12/31/22 19:58 PM
--- NOTE | 2023-01-01 11:47 | Discharge Summary ---
Date of Service January 01, 2023 Admission HPI Per Admitting Provider Charles Donald is a 52 year old male with a PMH significant for alcoholic hepatitis with recently diagnosed cirrhosis, chronic hyponatremia, and alcohol abuse who presented to the [facility] ED on 12/31 at the recommendation of his Director Of Food And Nutrition Services for abnormal outpatient labs. In the ED the patient was noted to be hypotensive at 75/56 with HR in the 50's. Labs were significant for a leukocytosis of 21 with left shift of 19, platelets of 124, INR of 1.6, sodium of 126, corrected calcium of 9.0, AST of 157, ALT of 134, albumin of 2.0, and UA with dark/cloudy urine, nitrite positive, 3+ bilirubin, 1+ leukocyte esterase, but negative bacteria. Chest xray was read as "No acute chest disease.". Ct of the abdomen/pelvis was read as "1. Large amount of ascites. 2. Underdistended gallbladder with irregular wall thickening again noted. This could be secondary to underlying liver disease, but neoplasm is not excluded. 3. Cirrhotic liver. Probable heterogeneous hepatic steatosis.Hepatomegaly.4. Mild splenomegaly. Varices.". Prior to admission the patient was given 2.5L NSS and a dose of Cefepime. At the time of the exam the patient was sitting in bed in no acute distress. He states since his discharge on 12/24 he varies on how he feels each day. Today he is actually feeling well. He states that he has been getting progressively more jaundiced and volume overloaded since last admission. He has not had a dr ink of alcohol since discharge and is very motivated to stay sober so he can be evaluated for possible liver transplant. He has been taking his medications as prescribed since discharge. He came to the ED today at the recommendation of his Gastroenterology team as they told him "my labs were getting worse". He denies recent fever, chills, chest pain, SOB, cough, dysuria, increased urinary frequency, diarrhea, melena, and recent trauma. When asked about abdominal pain, he states that he will have intermittent, dull/achy pain, more in the RUQ and RLL. At it's most severe it is a 4-5/10; he is currently abdominal pain free. He wishes to be a full code and would want his father to make medical decisions for him if he could not make them himself. Please refer to Dr. Wilkinson's attestation for any changes to the treatment plan Principal Diagnosis Alcoholism with cirrhosis and chronic ascites Discharge Exam General-alert and oriented x3, no fevers, no chills HEENT-head atraumatic and normocephalic, pupils equal and reactive to light, extraocular muscles intact Neck-no lymphadenopathy or thyromegaly, trachea midline Chest-clear to auscultation percussion. No rales wheezing or rhonchi Cardiac-regular rate and rhythm, normal S1 and S2, no murmurs Abdomen-normal bowel sounds, nontender. Distended with chronic ascites but not tense Extremities-no cyanosis, clubbing, or edema Neuro-cranial nerves II through XII intact, motor and sensory function within normal limits, strength symmetrical , no focal deficits Psych-normal affect, normal mood Discharge Data Allergies Allergy/AdvReac Type Severity Reaction Status Date / Time No Known Allergies Allergy Verified 12/31/22 18:48 Consultations 12/31/22 20:04 ED Decision to Admit Stat 12/31/22 22:59 Consult Gastroenterology Routine Ordered Studies 12/31/22 18:47 CT abd pelvis wo con Stat 01/01/23 08:00 IR paracentesis abd w/img US Routine Hospital Course (1) Alcoholic hepatitis with ascites: Gastroenterology consultation noted. Apparently the paracentesis cannot be done today, he has no evidence of spontaneous bacterial peritonitis. He will be discharged home today. (2) Liver cirrhosis: Alcohol related. Continue outpatient GI follow-up (3) Elevated INR: Due to cirrhosis. No active bleeding at this time (4) Alcohol use disorder: Has not had a drink since last admission, is not having cravings . Alcohol cessation has been stressed Plan Home today since paracentesis cannot be accomplished at least until Tuesday and possibly even later than that due to the holiday weekend. There is no need for him to lay around in the hospital. He has no evidence of spontaneous bacterial peritonitis. Total Time Total Time Spent Total Time Spent (In Minutes): 40 minutes Discharge Plan Discharge Items Patient Disposition: Home - Self-Care Reason For Visit: ALCOHOLIC HEPATITIS Discharge Diagnosis: Chronic alcohol related cirrhosis, chronic abdominal ascites Condition on Discharge: Fair Activity: Resume your previous activity Non-emergency contact: Primary Care Provider Call non-emergency contact if: your symptoms worsen Follow-up/Referrals: PCP,NO [Primary Care Provider] - Diet: Regular Addtl Attending Provider Instructions: All medications remain the same. Follow-up with gastroenterology on an outpatient basis. All medications remain the same Pending Studies at Discharge: No Stand-Alone Forms: [employer] [facility] [employer], Smoking Cessation Medications and DC Order Prescriptions: Continued spironolactone 25 mg Tablet 50 mg PO QAM 30 Days Qty: 60 0RF pantoprazole 40 mg Tablet,Delayed Release (Dr/Ec) 40 mg PO BID 60 Days Qty: 120 0RF furosemide 20 mg Tablet 20 mg PO QAM 30 Days Qty: 30 0RF prednisolone 15 mg/5 mL solution 40 mg PO QAM Qty: 100 3RF Rx Instructions: STARTED 12/24/22 FOR 7 DAYS nadolol 20 mg tablet 20 mg PO DAILY 14 Days Qty: 14 1RF Discharge Orders: Discharge Order (Routine); Ordered 01/01/23 Ordered By: Dimitrios Perez Admission Data Admit Date/Time: 12/31/22 20:57 Attending Provider: Dimitrios Perez Admit Provider: Latrice Wilkinson Primary Care Provider: PCP,MARCO Other Providers: Latrice Wilkinson ; Anastasia Troy Jr Coding Level of Care Code 51745 INP/OBS DISCH >30 MIN Diagnoses Alcoholic hepatitis with ascites K70.11 Liver cirrhosis K74.60 Elevated INR R79.1 Alcohol use disorder F10.90
--- NOTE | 2023-01-01 21:43 | Electrocardiogram Report ---
Test Reason : Blood Pressure : / mmHG Vent. Rate : 055 BPM Atrial Rate : 055 BPM P-R Int : 160 ms QRS Dur : 096 ms QT Int : 426 ms P-R-T Axes : 055 008 035 degrees QTc Int : 407 ms Sinus bradycardia Low voltage QRS Possible Inferior infarct When compared with ECG of 21-DEC-2022 10:39, Premature ventricular complexes are no longer Present Vent. rate has decreased BY 53 BPM Nonspecific T wave abnormality no longer evident in Anterior leads Confirmed by Elia Faustin ([id number]) on 01/01/2023 9:43:23 PM Referred By: REFERRED SELF Confirmed By:Elia Faustin
== END 2023-01-01 12:12 | disposition home or self-care (01) | DRG 432 ==
LOC: ED 14:07 → SUATTDRO 20:57 → 2E 20:57

== ENCOUNTER 2023-01-06 12:08 | Inpatient (IN) ==
[2023-01-06] MEDS ORDERED: SODIUM CHLORIDE 0.9% 1000ML 500 ML IV ONE (12:20)
--- NOTE | 2023-01-06 12:36 | Emergency Department Note ---
Impression & Plan Acute liver failure, Hypotension, Leukocytosis, Jaundice, Ascites, NANCIE (acute kidney injury), Acute GI bleeding ED Provider Note NAME: JIM NAJERA AGE: 52 SEX: M : 1970 ARRIVES VIA: Walk-In INFORMANT: Patient, the patient's father ED PROVIDER(S): Rahul Aleman DO CHIEF COMPLAINT: Weakness HPI: The patient is a 52-year-old male who was recently admitted to our facility for liver failure. The patient has a history of alcoholic cirrhosis. His last alcoholic beverage was in the middle of December. He was admitted to our facility f or an extended period of time. He is noticed abdominal pain abdominal distention lower extremity swelling as well as rectal bleeding. This is all been ongoing ever since his discharge. He went to his primary care physician's office today for his first follow-up appointment after being discharged from our facility and was sent directly to our facility for hypotension. ROS: See above HPI for pertinent positives & negatives. A total of 10 systems reviewed and were otherwise negative. PAST MEDICAL HISTORY: See Below PAST SURGICAL HISTORY: See Below FAMILY HISTORY: See Below SOCIAL HISTORY: See Below HOME MEDICATIONS: See Below ALLERGIES: See Below VITALS: See Below PHYSICAL EXAMINATION: GENERAL: The patient is awake and answering questions. He is somewhat listless. EYES: The conjunctivae are jaundiced. The pupils are round and reactive. EARS, NOSE, MOUTH AND THROAT: The nose is without any evidence of any deformity. Mucous membranes are dry. NECK: The neck is nontender and supple. RESPIRATORY: There were rales at both bases right greater than left. CARDIOVASCULAR: Regular rate and rhythm noted there no murmurs rubs or gallops normal S1 normal S2. GASTROINTESTINAL: The abdomen was distended. There is right upper quadrant tenderness to palpation but no guarding rigidity. MUSCULOSKELETAL/EXTREMITIES: There is no evidence of gross deformity full range of motion is noted in the hips and shoulders. SKIN: Significant lower extremity edema is noted bilaterally. Skin is warm and dry. There is jaundice noted of the skin coloring. NEUROLOGIC: Patient is awake and oriented to person place and situation. The patient recognizes family members. MEDICAL DECISION MAKING: The patient is a 52-year-old male who presented to the emergency department for an evaluation of multiple complaints. The patient has a history of alcoholic liver cirrhosis. He has had ongoing problems ever since his discharge from our facility including GI bleeding. He went to see his family doctor for a follow- up appointment after his discharge from here last week. He was sent directly to the emergency department for further evaluation because of hypotension. The patient was treated with IV fluids in the emergency department. He was also treated with empiric antibiotics. I discussed the patient's laboratory and radiographic studies with him and his father. The patient is not a candidate for transplant given his recent use of alcohol only last month. I discussed his condition with the on-call [facility] group. They have agreed to evaluate the patient in the emergency department for further management and disposition. Triage Nursing notes reviewed. Prior medical records reviewed Vital Signs: reviewed and remarkable for hypotension. Differential diagnosis: Infection, dehydration, metabolic abnormality, hypo/hyperglycemia, electrolyte disturbance, anemia, hypoxia, cardiac sources, intracerebral event, toxicologic, neurologic, as well as other pathologies. ER treatment provided: See below Diagnostics interpreted by me: ECG: EKG was obtained in the emergency department. My interpretation is sinus bradycardia at 59 bpm. There is no ectopy. There is no acute ST segment a bnormalities. This was compared to a tracing from December 31, 2022. No changes were noted. Cardiac Monitoring: An order was placed for continuous cardiac monitoring. The monitor shows a rate of 57 bpm with sinus bradycardia. Laboratory studies: As stated above and show below. Imaging studies: See below. Radiographic imaging was reviewed by myself Consultation(s): I discussed this case with Dr. Rios who is on-call for the [facility] ED COURSE: Procedures: none Critical Care: I have personally spent greater than 55 minutes of critical care time in the direct management of this patient. This includes bedside care, interpretation of diagnostic studies, and testing, discussion with consultants, patient, and [facility] members, and other required patient management activities. This 55 minutes is in excess of all separately billable procedures. Past Med/Surg History Medical History Acute hyponatremia Alcohol use disorder Alcoholic hepatitis Alcoholic hepatitis with ascites Elevated INR Surgical History No pertinent past surgical history Family History Other Bladder cancer Myocardial infarction Denies family history of Ovarian cancer Prostate cancer Breast cancer Colorectal cancer Social History Smoking Status: Never smoker Do You Dip or Chew Tobacco: Yes; Hx Alcohol Use: No Hx Substance Use: No (No longer uses substance.) Preferred Language: Tajik Communication Ability: Effective Visual Impairment: No Limitations Hearing Ability: Normal Hand Winder Required: No Beliefs That Will Affect Care: None Current Living Situation: Parent current occupational status: unemployed Feels Safe at Home: Yes Childhood Exposure to Second-Hand Smoke: No Diet: other Diet Comment: eating very little caffeine: No Dental Care, Regularly: No Physical Activity Frequency: Does not Exercise Physical Activity Frequency Comment: limited by physical condition Assistive Devices: None Allergies Allergies Allergy/AdvReac Type Severity Reaction Status Date / Time No Known Allergies Allergy Verified 01/06/23 10:06 Home Meds Home Medications Medication Instructions Recorded Confirmed naproxen sodium 220 mg tablet 220 mg PO DAILY PRN Pain 01/06/23 01/06/23 Previous Rx's Medication Instructions Recorded furosemide 20 mg tablet 20 mg PO QAM 30 days #30 tabs 12/24/22 nadolol 20 mg tablet 20 mg PO DAILY 14 days #14 tabs 12/24/22 pantoprazole 40 mg tablet,delayed 40 mg PO BID 60 days #120 tabs 12/24/22 release prednisolone 15 mg/5 mL oral 40 mg (13.3333 mL) PO QAM #100 mL 12/24/22 solution spironolactone 25 mg tablet 50 mg PO QAM 30 days #60 tabs 12/24/22 Results & Data (ED) Vital Signs Vital Signs - 24 hr 01/06/23 12:11 01/06/23 12:09 01/06/23 12:26 Temperature 36.8 C Temperature Source Temporal Artery Scan Pulse Rate 60 58 L Pulse Rate [Apical] 57 L Pulse Rate from SpO2 Sensor Pulse Rhythm Regular Respiratory Rate 20 18 Respiratory Effort / Characteristics Non-Labored Spontaneous Respiratory Depth Normal Normal Blood Pressure 62/34 L Blood Pressure [Left Arm] 100/56 L Blood Pressure Mean 43 Blood Pressure Mean [Left Arm] 70 Pulse Oximetry 97 97 Oxygen Delivery Method Room Air Room Air Sepsis Recent Fever Within 48 Hours No Sepsis New/Unexplained Change in Mental Status No Sepsis Action Taken by Nursing No Action Required 01/06/23 12:20 01/06/23 12:20 01/06/23 12:19 Temperature Temperature Source Pulse Rate 57 L 58 L Pulse Rate [Apical] 57 L Pulse Rate from SpO2 Sensor Pulse Rhythm Respiratory Rate 16 16 26 H Respiratory Effort / Characteristics Respiratory Depth Blood Pressure Blood Pressure [Left Arm] Blood Pressure Mean Blood Pressure Mean [Left Arm] Pulse Oximetry 97 97 Oxygen Delivery Method Room Air Sepsis Recent Fever Within 48 Hours Sepsis New/Unexplained Change in Mental Status Sepsis Action Taken by Nursing 01/06/23 12:20 01/06/23 12:21 01/06/23 12:21 Temperature Temperature Source Pulse Rate 59 L 57 L Pulse Rate [Apical] Pulse Rate from SpO2 Sensor Pulse Rhythm Respiratory Rate 21 17 Respiratory Effort / Characteristics Respiratory Depth Blood Pressure 100/56 L Blood Pressure [Left Arm] Blood Pressure Mean 70 Blood Pressure Mean [Left Arm] Pulse Oximetry Oxygen Delivery Method Sepsis Recent Fever Within 48 Hours Sepsis New/Unexplained Change in Mental Status Sepsis Action Taken by Nursing 01/06/23 12:30 01/06/23 12:40 01/06/23 12:50 Temperature Temperature Source Pulse Rate 57 L 57 L 59 L Pulse Rate [Apical] Pulse Rate from SpO2 Sensor 58 L 57 L 59 L Pulse Rhythm Respiratory Rate 16 18 18 Respiratory Effort / Characteristics Respiratory Depth Blood Pressure Blood Pressure [Left Arm] Blood Pressure Mean Blood Pressure Mean [Left Arm] Pulse Oximetry 97 97 97 Oxygen Delivery Method Sepsis Recent Fever Within 48 Hours Sepsis New/Unexplained Change in Mental Status Sepsis Action Taken by Nursing 01/06/23 13:00 01/06/23 13:10 01/06/23 13:20 Temperature Temperature Source Pulse Rate 59 L 59 L 60 Pulse Rate [Apical] Pulse Rate from SpO2 Sensor 59 L 59 L 60 Pulse Rhythm Respiratory Rate 18 16 16 Respiratory Effort / Characteristics Respiratory Depth Blood Pressure Blood Pressure [Left Arm] Blood Pressure Mean Blood Pressure Mean [Left Arm] Pulse Oximetry 97 99 100 Oxygen Delivery Method Sepsis Recent Fever Within 48 Hours Sepsis New/Unexplained Change in Mental Status Sepsis Action Taken by Nursing 01/06/23 13:36 01/06/23 13:40 01/06/23 13:48 Temperature Temperature Source Pulse Rate 61 58 L 59 L Pulse Rate [Apical] Pulse Rate from SpO2 Sensor 61 58 L 59 L Pulse Rhythm Respiratory Rate 14 17 16 Respiratory Effort / Characteristics Respiratory Depth Blood Pressure Blood Pressure [Left Arm] Blood Pressure Mean Blood Pressure Mean [Left Arm] Pulse Oximetry 98 98 97 Oxygen Delivery Method Sepsis Recent Fever Within 48 Hours Sepsis New/Unexplained Change in Mental Status Sepsis Action Taken by Nursing 01/06/23 13:48 01/06/23 13:50 01/06/23 14:00 Temperature Temperature Source Pulse Rate 59 L 60 Pulse Rate [Apical] Pulse Rate from SpO2 Sensor 59 L 59 L Pulse Rhythm Respiratory Rate 17 18 Respiratory Effort / Characteristics Respiratory Depth Blood Pressure 100/62 Blood Pressure [Left Arm] Blood Pressure Mean 79 Blood Pressure Mean [Left Arm] Pulse Oximetry 97 98 Oxygen Delivery Method Sepsis Recent Fever Within 48 Hours Sepsis New/Unexplained Change in Mental Status Sepsis Action Taken by Nursing 01/06/23 14:27 01/06/23 14:00 01/06/23 14:10 Temperature Temperature Source Pulse Rate 59 L Pulse Rate [Apical] 58 L Pulse Rate from SpO2 Sensor 59 L Pulse Rhythm Respiratory Rate 18 16 Respiratory Effort / Characteristics Respiratory Depth Blood Pressure 97/61 L Blood Pressure [Left Arm] 96/62 L Blood Pressure Mean 63 Blood Pressure Mean [Left Arm] 73 Pulse Oximetry 98 97 Oxygen Delivery Method Room Air Sepsis Recent Fever Within 48 Hours Sepsis New/Unexplained Change in Mental Status Sepsis Action Taken by Nursing 01/06/23 14:16 01/06/23 14:16 01/06/23 14:20 Temperature Temperature Source Pulse Rate 59 L 59 L Pulse Rate [Apical] Pulse Rate from SpO2 Sensor 59 L 59 L Pulse Rhythm Respiratory Rate 15 14 Respiratory Effort / Characteristics Respiratory Depth Blood Pressure 96/62 L Blood Pressure [Left Arm] Blood Pressure Mean 72 Blood Pressure Mean [Left Arm] Pulse Oximetry 96 97 Oxygen Delivery Method Sepsis Recent Fever Within 48 Hours Sepsis New/Unexplained Change in Mental Status Sepsis Action Taken by Nursing 01/06/23 14:30 01/06/23 14:40 01/06/23 14:46 Temperature Temperature Source Pulse Rate 58 L 59 L Pulse Rate [Apical] Pulse Rate from SpO2 Sensor 58 L 59 L Pulse Rhythm Respiratory Rate 13 17 Respiratory Effort / Characteristics Respiratory Depth Blood Pressure 76/63 L Blood Pressure [Left Arm] Blood Pressure Mean 75 Blood Pressure Mean [Left Arm] Pulse Oximetry 96 97 Oxygen Delivery Method Sepsis Recent Fever Within 48 Hours Sepsis New/Unexplained Change in Mental Status Sepsis Action Taken by Nursing 01/06/23 14:46 01/06/23 14:48 01/06/23 14:48 Temperature Temperature Source Pulse Rate 59 L 58 L Pulse Rate [Apical] Pulse Rate from SpO2 Sensor 59 L 58 L Pulse Rhythm Respiratory Rate 15 15 Respiratory Effort / Characteristics Respiratory Depth Blood Pressure 94/58 L Blood Pressure [Left Arm] Blood Pressure Mean 67 Blood Pressure Mean [Left Arm] Pulse Oximetry 98 97 Oxygen Delivery Method Sepsis Recent Fever Within 48 Hours Sepsis New/Unexplained Change in Mental Status Sepsis Action Taken by Nursing 01/06/23 14:50 01/06/23 15:00 01/06/23 15:01 Temperature Temperature Source Pulse Rate 58 L 60 Pulse Rate [Apical] Pulse Rate from SpO2 Sensor 58 L 60 Pulse Rhythm Respiratory Rate 13 13 Respiratory Effort / Characteristics Respiratory Depth Blood Pressure 102/58 L Blood Pressure [Left Arm] Blood Pressure Mean 67 Blood Pressure Mean [Left Arm] Pulse Oximetry 99 97 Oxygen Delivery Method Sepsis Recent Fever Within 48 Hours Sepsis New/Unexplained Change in Mental Status Sepsis Action Taken by Nursing 01/06/23 15:01 01/06/23 15:10 01/06/23 16:28 Temperature Temperature Source Pulse Rate 60 60 58 L Pulse Rate [Apical] Pulse Rate from SpO2 Sensor 60 61 Pulse Rhythm Respiratory Rate 15 15 Respiratory Effort / Characteristics Respiratory Depth Blood Pressure Blood Pressure [Left Arm] Blood Pressure Mean Blood Pressure Mean [Left Arm] Pulse Oximetry 98 96 Oxygen Delivery Method Sepsis Recent Fever Within 48 Hours Sepsis New/Unexplained Change in Mental Status Sepsis Action Taken by Nursing 01/06/23 15:15 01/06/23 15:15 01/06/23 15:20 Temperature Temperature Source Pulse Rate 62 60 Pulse Rate [Apical] Pulse Rate from SpO2 Sensor 62 60 Pulse Rhythm Respiratory Rate 19 15 Respiratory Effort / Characteristics Respiratory Depth Blood Pressure 99/60 L Blood Pressure [Left Arm] Blood Pressure Mean 67 Blood Pressure Mean [Left Arm] Pulse Oximetry 97 98 Oxygen Delivery Method Sepsis Recent Fever Within 48 Hours Sepsis New/Unexplained Change in Mental Status Sepsis Action Taken by Nursing 01/06/23 15:30 01/06/23 15:40 01/06/23 15:45 Temperature Temperature Source Pulse Rate 60 59 L Pulse Rate [Apical] Pulse Rate from SpO2 Sensor 60 59 L Pulse Rhythm Respiratory Rate 15 18 Respiratory Effort / Characteristics Respiratory Depth Blood Pressure 117/61 Blood Pressure [Left Arm] Blood Pressure Mean 88 Blood Pressure Mean [Left Arm] Pulse Oximetry 99 100 Oxygen Delivery Method Sepsis Recent Fever Within 48 Hours Sepsis New/Unexplained Change in Mental Status Sepsis Action Taken by Nursing 01/06/23 15:45 01/06/23 15:50 01/06/23 16:00 Temperature Temperature Source Pulse Rate 60 57 L Pulse Rate [Apical] Pulse Rate from SpO2 Sensor 60 57 L Pulse Rhythm Respiratory Rate 18 16 Respiratory Effort / Characteristics Respiratory Depth Blood Pressure 103/71 Blood Pressure [Left Arm] Blood Pressure Mean 77 Blood Pressure Mean [Left Arm] Pulse Oximetry 99 98 Oxygen Delivery Method Sepsis Recent Fever Within 48 Hours Sepsis New/Unexplained Change in Mental Status Sepsis Action Taken by Nursing 01/06/23 16:00 01/06/23 16:10 01/06/23 16:16 Temperature Temperature Source Pulse Rate 57 L 57 L Pulse Rate [Apical] Pulse Rate from SpO2 Sensor 57 L 57 L Pulse Rhythm Respiratory Rate 17 15 Respiratory Effort / Characteristics Respiratory Depth Blood Pressure 106/68 Blood Pressure [Left Arm] Blood Pressure Mean 86 Blood Pressure Mean [Left Arm] Pulse Oximetry 99 99 Oxygen Delivery Method Sepsis Recent Fever Within 48 Hours Sepsis New/Unexplained Change in Mental Status Sepsis Action Taken by Nursing 01/06/23 16:16 01/06/23 16:20 01/06/23 16:30 Temperature Temperature Source Pulse Rate 57 L 58 L Pulse Rate [Apical] Pulse Rate from SpO2 Sensor 57 L 58 L Pulse Rhythm Respiratory Rate 18 18 Respiratory Effort / Characteristics Respiratory Depth Blood Pressure 116/59 L Blood Pressure [Left Arm] Blood Pressure Mean 72 Blood Pressure Mean [Left Arm] Pulse Oximetry 99 98 Oxygen Delivery Method Sepsis Recent Fever Within 48 Hours Sepsis New/Unexplained Change in Mental Status Sepsis Action Taken by Nursing 01/06/23 16:30 01/06/23 16:40 01/06/23 16:45 Temperature Temperature Source Pulse Rate 59 L 59 L Pulse Rate [Apical] Pulse Rate from SpO2 Sensor 59 L 59 L Pulse Rhythm Respiratory Rate 17 20 Respiratory Effort / Characteristics Respiratory Depth Blood Pressure 97/60 L Blood Pressure [Left Arm] Blood Pressure Mean 74 Blood Pressure Mean [Left Arm] Pulse Oximetry 98 98 Oxygen Delivery Method Sepsis Recent Fever Within 48 Hours Sepsis New/Unexplained Change in Mental Status Sepsis Action Taken by Nursing 01/06/23 16:45 01/06/23 16:50 01/06/23 17:00 Temperature Temperature Source Pulse Rate 57 L 57 L 57 L Pulse Rate [Apical] Pulse Rate from SpO2 Sensor 57 L 58 L 56 L Pulse Rhythm Respiratory Rate 17 17 14 Respiratory Effort / Characteristics Respiratory Depth Blood Pressure Blood Pressure [Left Arm] Blood Pressure Mean Blood Pressure Mean [Left Arm] Pulse Oximetry 98 98 98 Oxygen Delivery Method Sepsis Recent Fever Within 48 Hours Sepsis New/Unexplained Change in Mental Status Sepsis Action Taken by [facility] Medications Current Medication List: was personally reviewed by me Laboratory Data Attestation: I reviewed the patient's lab results. 01/06/23 12:30 01/06/23 14:28 Lab Results 01/06/23 01/06/23 01/06/23 Range/Units 12:30 12:30 12:30 WBC 29.21 H (4.8-10.8) K/ul RBC 3.02 L (4.70-6.10) M/uL Hgb 11.9 L (14.0-18.0) g/dl Hct 32.2 L (42.0-52.0) % MCV 106.6 H (80.0-100.0) fL MCH 39.4 H (25.0-34.0) pg MCHC 37.0 H (32.0-36.0) g/dL RDW Std Deviation 58.6 H (36.4-46.3) fL RDW Coeff of Rohan 15.1 H (11.5-14.5) % Plt Count 107 L (130-400) K/uL Immature Gran % (Auto) 3.3 % Neut % (Auto) 91.5 % Lymph % (Auto) 1.9 % Bowie % (Auto) 3.0 % Eos % (Auto) 0.1 % Baso % (Auto) 0.2 % Neut # (Auto) 26.72 H (1.40-6.50) K/uL Lymph # (Auto) 0.56 L (1.2-3.4) K/uL Bowie # (Auto) 0.89 H (0.11-0.59) K/uL Eos # (Auto) 0.02 (0-0.50) K/uL Baso # (Auto) 0.06 (0-0.2) K/uL Immature Gran # (Auto) 0.96 H (0.01-0.20) K/uL Polychromasia 1+ Anisocytosis Present Echinocytes 2+ PT 15.8 H (9.0-12.0) Seconds INR 1.5 H (0.9-1.1) APTT 30.5 (21.0-31.0) Seconds PTT Ratio 1.1 VBG pH (7.36-7.41) VBG pCO2 (38-50) mmHg VBG pO2 mmHg VBG HCO3 mmol/L VBG O2 Saturation % VBG Base Excess mEq/L Sodium Cancelled Potassium Cancelled Chloride Cancelled Carbon Dioxide Cancelled Anion Gap Cancelled BUN Cancelled Creatinine Cancelled Est Cr Clr Drug Dosing Cancelled Est GFR ( Amer) Cancelled Est GFR (Non-Af Amer) Cancelled BUN/Creatinine Ratio Cancelled Glucose Cancelled Lactate (0.4-2.0) mmol/L Calcium Cancelled Magnesium Cancelled Total Bilirubin Cancelled Direct Bilirubin Cancelled AST Cancelled ALT Cancelled Alkaline Phosphatase Cancelled Ammonia Troponin I High Sens 7.9 (0-20) pg/ml Total Protein Cancelled Albumin Cancelled Procalcitonin (0-0.5) ng/ml Random Cortisol mcg/dl Ethyl Alcohol mg/dL (<10.0) mg/dl SARS-CoV-2, RNA, NAAT (NEGATIVE) Blood Type Antibody Screen 01/06/23 01/06/23 01/06/23 Range/Units 12:30 12:30 12:30 WBC (4.8-10.8) K/ul RBC (4.70-6.10) M/uL Hgb (14.0-18.0) g/dl Hct (42.0-52.0) % MCV (80.0-100.0) fL MCH (25.0-34.0) pg MCHC (32.0-36.0) g/dL RDW Std Deviation (36.4-46.3) fL RDW Coeff of Rohan (11.5-14.5) % Plt Count (130-400) K/uL Immature Gran % (Auto) % Neut % (Auto) % Lymph % (Auto) % Bowie % (Auto) % Eos % (Auto) % Baso % (Auto) % Neut # (Auto) (1.40-6.50) K/uL Lymph # (Auto) (1.2-3.4) K/uL Bowie # (Auto) (0.11-0.59) K/uL Eos # (Auto) (0-0.50) K/uL Baso # (Auto) (0-0.2) K/uL Immature Gran # (Auto) (0.01-0.20) K/uL Polychromasia Anisocytosis Echinocytes PT (9.0-12.0) Seconds INR (0.9-1.1) APTT (21.0-31.0) Seconds PTT Ratio VBG pH (7.36-7.41) VBG pCO2 (38-50) mmHg VBG pO2 mmHg VBG HCO3 mmol/L VBG O2 Saturation % VBG Base Excess mEq/L Sodium Potassium Chloride Carbon Dioxide Anion Gap BUN Creatinine Est Cr Clr Drug Dosing Est GFR ( Amer) Est GFR (Non-Af Amer) BUN/Creatinine Ratio Glucose Lactate (0.4-2.0) mmol/L Calcium Magnesium Total Bilirubin Direct Bilirubin AST ALT Alkaline Phosphatase Ammonia TNP Troponin I High Sens (0-20) pg/ml Total Protein Albumin Procalcitonin 2.26 H (0-0.5) ng/ml Random Cortisol 22.51 mcg/dl Ethyl Alcohol mg/dL (<10.0) mg/dl SARS-CoV-2, RNA, NAAT (NEGATIVE) Blood Type Antibody Screen 01/06/23 01/06/23 01/06/23 Range/Units 12:30 13:00 13:24 WBC (4.8-10.8) K/ul RBC (4.70-6.10) M/uL Hgb (14.0-18.0) g/dl Hct (42.0-52.0) % MCV (80.0-100.0) fL MCH (25.0-34.0) pg MCHC (32.0-36.0) g/dL RDW Std Deviation (36.4-46.3) fL RDW Coeff of Rohan (11.5-14.5) % Plt Count (130-400) K/uL Immature Gran % (Auto) % Neut % (Auto) % Lymph % (Auto) % Bowie % (Auto) % Eos % (Auto) % Baso % (Auto) % Neut # (Auto) (1.40-6.50) K/uL Lymph # (Auto) (1.2-3.4) K/uL Bowie # (Auto) (0.11-0.59) K/uL Eos # (Auto) (0-0.50) K/uL Baso # (Auto) (0-0.2) K/uL Immature Gran # (Auto) (0.01-0.20) K/uL Polychromasia Anisocytosis Echinocytes PT (9.0-12.0) Seconds INR (0.9-1.1) APTT (21.0-31.0) Seconds PTT Ratio VBG pH (7.36-7.41) VBG pCO2 (38-50) mmHg VBG pO2 mmHg VBG HCO3 mmol/L VBG O2 Saturation % VBG Base Excess mEq/L Sodium Potassium Chloride Carbon Dioxide Anion Gap BUN Creatinine Est Cr Clr Drug Dosing Est GFR ( Amer) Est GFR (Non-Af Amer) BUN/Creatinine Ratio Glucose Lactate 1.9 (0.4-2.0) mmol/L Calcium Magnesium Total Bilirubin Direct Bilirubin AST ALT Alkaline Phosphatase Ammonia Troponin I High Sens (0-20) pg/ml Total Protein Albumin Procalcitonin (0-0.5) ng/ml Random Cortisol mcg/dl Ethyl Alcohol mg/dL < 10.0 (<10.0) mg/dl SARS-CoV-2, RNA, NAAT (NEGATIVE) Blood Type A Positive Antibody Screen NEGATIVE 01/06/23 01/06/23 01/06/23 Range/Units 13:24 14:28 14:28 WBC (4.8-10.8) K/ul RBC (4.70-6.10) M/uL Hgb (14.0-18.0) g/dl Hct (42.0-52.0) % MCV (80.0-100.0) fL MCH (25.0-34.0) pg MCHC (32.0-36.0) g/dL RDW Std Deviation (36.4-46.3) fL RDW Coeff of Rohan (11.5-14.5) % Plt Count (130-400) K/uL Immature Gran % (Auto) % Neut % (Auto) % Lymph % (Auto) % Bowie % (Auto) % Eos % (Auto) % Baso % (Auto) % Neut # (Auto) (1.40-6.50) K/uL Lymph # (Auto) (1.2-3.4) K/uL Bowie # (Auto) (0.11-0.59) K/uL Eos # (Auto) (0-0.50) K/uL Baso # (Auto) (0-0.2) K/uL Immature Gran # (Auto) (0.01-0.20) K/uL Polychromasia Anisocytosis Echinocytes PT (9.0-12.0) Seconds INR (0.9-1.1) APTT (21.0-31.0) Seconds PTT Ratio VBG pH 7.35 L (7.36-7.41) VBG pCO2 30 L (38-50) mmHg VBG pO2 41 mmHg VBG HCO3 17 mmol/L VBG O2 Saturation 70.9 % VBG Base Excess -7.7 mEq/L Sodium 126 L Potassium 6.0 H Chloride 100 Carbon Dioxide 19 L Anion Gap 7 BUN 103 H Creatinine 2.53 H Est Cr Clr Drug Dosing 46.1 Est GFR ( Amer) 32.3 Est GFR (Non-Af Amer) 27.9 BUN/Creatinine Ratio 40.7 H Glucose 190 H Lactate (0.4-2.0) mmol/L Calcium 7.5 L Magnesium 3.2 H Total Bilirubin 16.6 H Direct Bilirubin 8.7 H AST 226 H ALT 222 H Alkaline Phosphatase 125 H Ammonia 31.0 Troponin I High Sens (0-20) pg/ml Total Protein 4.4 L Albumin 1.9 L Procalcitonin (0-0.5) ng/ml Random Cortisol mcg/dl Ethyl Alcohol mg/dL (<10.0) mg/dl SARS-CoV-2, RNA, NAAT (NEGATIVE) Blood Type Antibody Screen 01/06/23 Range/Units 16:35 WBC (4.8-10.8) K/ul RBC (4.70-6.10) M/uL Hgb (14.0-18.0) g/dl Hct (42.0-52.0) % MCV (80.0-100.0) fL MCH (25.0-34.0) pg MCHC (32.0-36.0) g/dL RDW Std Deviation (36.4-46.3) fL RDW Coeff of Rohan (11.5-14.5) % Plt Count (130-400) K/uL Immature Gran % (Auto) % Neut % (Auto) % Lymph % (Auto) % Bowie % (Auto) % Eos % (Auto) % Baso % (Auto) % Neut # (Auto) (1.40-6.50) K/uL Lymph # (Auto) (1.2-3.4) K/uL Bowie # (Auto) (0.11-0.59) K/uL Eos # (Auto) (0-0.50) K/uL Baso # (Auto) (0-0.2) K/uL Immature Gran # (Auto) (0.01-0.20) K/uL Polychromasia Anisocytosis Echinocytes PT (9.0-12.0) Seconds INR (0.9-1.1) APTT (21.0-31.0) Seconds PTT Ratio VBG pH (7.36-7.41) VBG pCO2 (38-50) mmHg VBG pO2 mmHg VBG HCO3 mmol/L VBG O2 Saturation % VBG Base Excess mEq/L Sodium Potassium Chloride Carbon Dioxide Anion Gap BUN Creatinine Est Cr Clr Drug Dosing Est GFR ( Amer) Est GFR (Non-Af Amer) BUN/Creatinine Ratio Glucose Lactate (0.4-2.0) mmol/L Calcium Magnesium Total Bilirubin Direct Bilirubin AST ALT Alkaline Phosphatase Ammonia Troponin I High Sens (0-20) pg/ml Total Protein Albumin Procalcitonin (0-0.5) ng/ml Random Cortisol mcg/dl Ethyl Alcohol mg/dL (<10.0) mg/dl SARS-CoV-2, RNA, NAAT NEGATIVE (NEGATIVE) Blood Type Antibody Screen Administered Medications Albumin Human (Albumin 25%) 25 gm in 100 mls @ 50 mls/hr IV Q2H SUMIT Stop: 01/06/23 21:59 Last Admin: 01/06/23 18:43 Dose: 50 mls/hr Documented By: MES Discontinued Medications Dextrose (Dextrose 50% 50 Ml Syringe) 50 ml IV NOW STA Stop: 01/06/23 17:48 Last Admin: 01/06/23 18:13 Dose: 50 ml Documented By: ACC Sodium Chloride (Nss 1000ml) 500 mls @ 999 mls/hr IV .Q31M ONE Stop: 01/06/23 12:50 Last Infusion: 01/06/23 13:17 Dose: 0 mls/hr Documented By: Admin: 01/06/23 12:45 Dose: 999 mls/hr Documented By: ACC Sodium Chloride (Nss 1000ml) 1,000 mls @ 999 mls/hr IV .Q1H1M ONE Stop: 01/06/23 14:59 Last Infusion: 01/06/23 18:48 Dose: 0 mls/hr Documented By: Admin: 01/06/23 14:11 Dose: 999 mls/hr Documented By: JOHN Ceftriaxone Sodium (Rocephin) 2,000 mg in 70 mls @ 140 mls/hr IV NOW STA Stop: 01/06/23 14:29 Last Infusion: 01/06/23 18:48 Dose: 0 mls/hr Documented By: Admin: 01/06/23 14:11 Dose: 140 mls/hr Documented By: JOHN Phytonadione 10 mg/ Sodium (Chloride) 51 mls @ 102 mls/hr IV ONE ONE Stop: 01/06/23 18:18 Last Admin: 01/06/23 18:43 Dose: 102 mls/hr Documented By: JOHN Insulin Human Regular (Novolin-R Insulin Per Unit Charge) 10 units IV NOW STA Stop: 01/06/23 17:48 Last Admin: 01/06/23 18:13 Dose: 10 units Documented By: ACC Co-signed By: Imaging Data Attestation: I personally reviewed and interpreted this imaging study as follo ws: My Impression: 1 view chest x-ray was obtained in the emergency department. My interpretation is no free air or definite infiltrate, final report below. CT of the abdomen and pelvis was obtained in the emergency department. My interpretation is no free air, ascites was noted, no signs of bowel obstruction, final report below. Radiologist's Impression: Chest X-Ray 01/06/23 12:20 SINGLE VIEW CHEST CLINICAL HISTORY: Sepsis. FINDINGS: An AP, portable, upright chest radiograph is compared to study dated 12/31/2022. The cardiomediastinal silhouette is top normal for projection. There is elevation of the right hemidiaphragm with bibasilar atelectasis. No airspace consolidation or large pleural effusion is identified. No pneumothorax is seen. The bony thorax is grossly intact. IMPRESSION: No acute cardiopulmonary abnormality. ACT 112: Negative or not required by law. Electronically signed by: Angelo Gutierrez M.D. 01/06/2023 1:23 PM Abdomen/Pelvis CT 01/06/23 12:[address] WITHOUT CONTRAST CT DOSE: 1728.30 mGy.cm HISTORY: Bloating. Generalized abdominal pain, hx of ascites TECHNIQUE: Multiaxial CT images of the abdomen and pelvis were performed without contrast. A dose lowering technique was utilized adhering to the principles of ALARA. COMPARISON STUDY: Abdomen and pelvis CT 12/31/2022. FINDINGS: Right basilar linear densities consistent with subsegmental atelectasis or scarring. No pneumoperitoneum. No pneumatosis. No acute fractures identified. Moderate body wall edema which has progressed. Slightly heterogeneous and cirrhotic liver again noted. Hyperdense material within the gallbladder lumen favor small stones or sludge. The spleen remains mildly enlarged. The unenhanced adrenal glands, pancreas, and left kidney are unremarkable. There is a punctate stone within the lower pole of the right kidney, unchanged. No ureteral stones. No hydronephrosis. 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 The bladder is unremarkable. Moderate ascites, unchanged. Suboptimal evaluation for bowel pathology due to the lack of intravenous and oral contrast. However, there is no definite bowel wall thickening or obstruction. Normal appendix. A few colonic diverticula. No evidence for acute diverticulitis. Submucosal fat deposition within the proximal colon as can considered to be chronic. Mild mesenteric edema is noted. Normal caliber abdominal aorta. No retroperitoneal or pelvic lymphadenopathy. IMPRESSION: 1. Heterogeneous and cirrhotic liver with evidence for portal hypertension demonstrated by splenomegaly and upper abdominal varices. This is similar to the prior study. 2. Moderate ascites, unchanged. 3. Moderate body wall edema. This is slightly progressed. 4. Hyperdense material within the gallbladder. This favors small stones or sludge. 5. No definite bowel wall thickening or obstruction. 6. Normal appendix. 7. Stable right-sided nephrolithiasis. ACT 112: Negative or not required by law. Electronically signed by: Juan Francisco Boykin M.D. 01/06/2023 1:48 PM Discharge Plan Visit Data Chief Complaint: Testing Request Stated Complaint: REF BY DR. CONCEPCION, WANTS MORE TESTING DONE ED Provider: Rahul Aleman Discharge Problem: Acute liver failure, Hypotension, Leukocytosis, Jaundice, Ascites, NANCIE (acute kidney injury), Acute GI bleeding Patient Disposition: Admitted As Inpatient Discharge Instructions Interventions: ED Discharge Assessment Last Done: 01/06/23 18:56
[2023-01-06 13:18] LABS: Anisocytosis Present; Basophils # (auto) 0.06 K/uL (0-0.2); Basophils % (auto) 0.2 %; Echinocytes 2+; Eosinophils # (auto) 0.02 K/uL (0-0.50); Eosinophils % (auto) 0.1 %; Hematocrit (blood only) 32.2 % (42.0-52.0); Hemoglobin 11.9 g/dl (14.0-18.0); Immature Granulocytes # (auto) 0.96 K/uL (0.01-0.20); Immature Granulocytes % (auto) 3.3 %; Lymphocytes # (auto) 0.56 K/uL (1.2-3.4); Lymphocytes % (auto) 1.9 %; Mean Corpuscular Hemoglobin 39.4 pg (25.0-34.0); Mean Corpuscular Volume 106.6 fL (80.0-100.0); Monocytes # (auto) 0.89 K/uL (0.11-0.59); Neutrophils # (auto) 26.72 K/uL (1.40-6.50); Neutrophils % (auto) 91.5 %; Platelet Count 107 K/uL (130-400); Polychromasia 1+; RDW Coefficient of Variation 15.1 % (11.5-14.5); RDW Standard Deviation 58.6 fL (36.4-46.3); Red Blood Count 3.02 M/uL (4.70-6.10); White Blood Count 29.21 K/ul (4.8-10.8)
[2023-01-06 13:20] LABS: INR 1.5 (0.9-1.1); Partial Thromboplastin Ratio 1.1; Partial Thromboplastin Time 30.5 Seconds (21.0-31.0); Prothrombin Time 15.8 Seconds (9.0-12.0)
--- NOTE | 2023-01-06 13:24 | XRay Report ---
SINGLE VIEW CHEST CLINICAL HISTORY: Sepsis. FINDINGS: An AP, portable, upright chest radiograph is compared to study dated 12/31/2022. The cardiom ediastinal silhouette is top normal for projection. There is elevation of the right hemidiaphragm wit h bibasilar atelectasis. No airspace consolidation or large pleural effusion is identified. No pneumo thorax is seen. The bony thorax is grossly intact. IMPRESSION: No acute cardiopulmonary abnormality. ACT 112: Negative or not required by law. Electronically signed by: Angelo Gutierrez M.D. 01/06/2023 1:23 PM
[2023-01-06 13:34] LABS: Base Excess VBG -7.7 mEq/L; HCO3 VBG 17 mmol/L; Oxygen Saturation VBG 70.9 %; PCO2 VBG 30 mmHg (38-50); PO2 VBG 41 mmHg; pH VBG 7.35 (7.36-7.41)
--- NOTE | 2023-01-06 13:51 | CT Scan Report ---
ABDOMEN AND PELVIS CT WITHOUT CONTRAST CT DOSE: 1728.30 mGy.cm HISTORY: Bloating. Generalized abdominal pain, hx of ascites TECHNIQUE: Multiaxial CT images of the abdomen and pelvis were performed without contrast. A dose lo wering technique was utilized adhering to the principles of ALARA. COMPARISON STUDY: Abdomen and pelvis CT 12/31/2022. FINDINGS: Right basilar linear densities consistent with subsegmental atelectasis or scarring. No pne umoperitoneum. No pneumatosis. No acute fractures identified. Moderate body wall edema which has prog ressed. Slightly heterogeneous and cirrhotic liver again noted. Hyperdense material within the gallbl adder lumen favor small stones or sludge. The spleen remains mildly enlarged. The unenhanced adrenal glands, pancreas, and left kidney are unremarkable. There is a punctate stone within the lower pole o f the right kidney, unchanged. No ureteral stones. No hydronephrosis. Upper abdominal and paraesophag eal varices are again noted. A left-sided splenorenal shunt remains unchanged. The bladder is unremar kable. Moderate ascites, unchanged. Suboptimal evaluation for bowel pathology due to the lack of intr avenous and oral contrast. However, there is no definite bowel wall thickening or obstruction. Normal appendix. A few colonic diverticula. No evidence for acute diverticulitis. Submucosal fat deposition within the proximal colon as can considered to be chronic. Mild mesenteric edema is noted. Normal ca liber abdominal aorta. No retroperitoneal or pelvic lymphadenopathy. IMPRESSION: 1. Heterogeneous and cirrhotic liver with evidence for portal hypertension demonstrated by splenomega ly and upper abdominal varices. This is similar to the prior study. 2. Moderate ascites, unchanged. 3. Moderate body wall edema. This is slightly progressed. 4. Hyperdense material within the gallbladder. This favors small stones or sludge. 5. No definite bowel wall thickening or obstruction. 6. Normal appendix. 7. Stable right-sided nephrolithiasis. ACT 112: Negative or not required by law. Electronically signed by: Juan Francisco Boykin M.D. 01/06/2023 1:48 PM
[2023-01-06] MEDS ORDERED: SODIUM CHLORIDE 0.9% 1000ML 1,000 ML IV ONE (13:59)
[2023-01-06] MEDS ORDERED: cefTRIAXone SODIUM 2,000 MG/70 ML BAG IV STA (14:00)
[2023-01-06 14:59] LABS: Albumin Level 1.9 gm/dl (3.4-5.0); BUN Creatinine Ratio 40.7 (10-20); Bilirubin Direct 8.7 mg/dl (0-0.2); Bilirubin,Total 16.6 mg/dl (0.2-1.0); Calcium 7.5 mg/dl (8.6-10.3); Creatinine Clr Calc Pharmacy 46.1 ml/min; Est GFR (African American) 32.3 ml/min; Est GFR (Non-African American) 27.9 ml/min; Magnesium 3.2 mg/dl (1.7-2.4); Total Protein 4.4 gm/dl (6.0-8.3)
[2023-01-06] MEDS ORDERED: DEXTROSE 50% 50 ML SYRINGE IV STA ×2 (17:47→21:47)
[2023-01-06] MEDS ORDERED: NovoLIN-R INSULIN PER UNIT CHARGE IV STA (17:47)
[2023-01-06] MEDS ORDERED: PANTOprazole 40 MG in SYRINGE 0 ML IV ONE (17:49)
[2023-01-06] MEDS ORDERED: PHYTONADIONE 10 MG in SODIUM CHLORIDE 0.9% 50 ML IV ONE (17:49)
--- NOTE | 2023-01-06 18:04 | History & Physical Report ---
Date of Service January 06, 2023 Assessment & Plan (1) Acute kidney injury superimposed on CKD: (2) Acute GI bleeding: (3) Hypotension: (4) Chronic liver failure: (5) Jaundice: (6) Ascites: (7) Alcohol use disorder: (8) Alcoholic hepatitis with ascites: (9) Acute hyponatremia: (10) Elevated INR: (11) Liver cirrhosis: (12) Epigastric pain: (13) Hyperkalemia: Plan chronic liver failure/alcoholic cirrhosis/alcoholic hepatitis with ascites/varices/anasarca- development of and worsening abdominal pain concerning for possible peritonitis Patient will need paracentesis He was given ceftriaxone 2 g IV from the ED As long as BP maintains itself, hold on additional antibiotics until paracentesis done tomorrow give albumin 50 g IV Consult gastroenterology Consult for paracentesis follow serial CBC, chemistry and magnesium levels patient reports that his last alcohol intake was December 17 leukocytosis- Concern regarding peritonitis Received ceftriaxone IV from the ED Reverse INR with vitamin K, in anticipation of paracentesis in the a.m., which will need to be ordered hyperkalemia/acute kidney injury on CKD- Potassium 6.0 on admission, with creatinine 2.53 and sodium 126 Patient received 1.5 L normal saline from the ED Give D50 and 10 units regular insulin IV protocol x2, along with Lokelma this evening and daily calcium gluconate 1 g IV hold spironolactone. Stop eating bananas May need nephrology consult pending laboratory results in a.m. rectal bleeding/presence of upper abdominal varices- Start Protonix 40 mg IV every 12 hours and octreotide drip Consult gastroenterology coagulopathy- INR 1.5, similar to previous, however, since he is actively bleeding at this time, will give vitamin K 10 mg IV sepsis causing hypotension- Systolic had decreased to the 60s, but did improve with 1.5 L normal saline to the low 100s Hold furosemide, nadolol, spironolactone CODE STATUS: Full code History of Present Illness Chief Complaint: the patient presents to the emergency department with a recurrence of abdominal pain and distention, and report of rectal bleeding and gross hematuria since recent discharge on 01/01/2023 Primary Care Provider: EDYTA Villar the patient is a 52-year-old male with a past medical history including alcoholic cirrhosis and liver failure, anasarca, alcoholic hepatitis with ascites, chronic hyponatremia, coagulopathy, CKD stage III, portal hypertension. He presents to the emergency department with worsening abdominal distention and pain, and bright red blood per rectum along with gross hematuria. Significant abnormal laboratories: WBC 29.21, hemoglobin 11.9, hematocrit 32.2, sodium 126, potassium 6.0, creatinine 2.53, BUN 103, glucose 190, INR 1.5, total bilirubin 16.6, direct bilirubin 8.7, AST 226, ALT 222, albumin 1.9. CT scan of abdomen pelvis shows cirrhosis, portal hypertension, hyper splenomegaly, upper abdominal varices, moderate ascites unchanged, moderate body wall edema, and gallbladder stones/sludge From the ED the patient received the following: Normal saline total 1500 mL for fluid resuscitation with systolic blood pressure had dropped to the 60s, and ceftriaxone 2 g IV Allergies Allergy/AdvReac Type Severity Reaction Status Date / Time No Known Allergies Allergy Verified 01/06/23 10:06 Home Medications Medication Instructions Recorded Confirmed Type furosemide 20 mg tablet 20 mg PO QAM 30 days #30 tabs 12/24/22 01/06/23 Rx nadolol 20 mg tablet 20 mg PO DAILY 14 days #14 tabs 12/24/22 01/06/23 Rx pantoprazole 40 mg tablet,delayed 40 mg PO BID 60 days #120 tabs 12/24/2212/24 Rx release prednisolone 15 mg/5 mL oral 40 mg (13.3333 mL) PO QAM #100 mL 12/24/22 01/06/23 Rx solution spironolactone 25 mg tablet 50 mg PO QAM 30 days #60 tabs 12/24/22 01/06/23 Rx naproxen sodium 220 mg tablet 220 mg PO DAILY PRN Pain 01/06/23 01/06/23 History Past Med/Surg History Medical History Acute hyponatremia Alcohol use disorder Alcoholic hepatitis Alcoholic hepatitis with ascites Elevated INR Surgical History No pertinent past surgical history Family History Other Bladder cancer Myocardial infarction Denies family history of Ovarian cancer Prostate cancer Breast cancer Colorectal cancer Social History Smoking Status: Former smoker Smoking End Date: 13 years ago; Do You Dip or Chew Tobacco: Yes; Hx Alcohol Use: Yes Alcohol type: hard liquor Hx Substance Use: No (No longer uses substance.) Preferred Language: Wallisian Communication Ability: Effective Visual Impairment: No Limitations Hearing Ability: Normal Senior Care Provider Required: No Beliefs That Will Affect Care: None Current Living Situation: Family Current Living Situation Comment: lives with father current occupational status: unemployed Other Information That Helps Us Care for You: No Feels Safe at Home: Yes Safety Concerns: Feels Safe At This Time Childhood Exposure to Second-Hand Smoke: No Diet: other Diet Comment: eating very little caffeine: No Dental Care, Regularly: No Physical Activity Frequency: Does not Exercise Physical Activity Frequency Comment: limited by physical condition Assistive Devices: None Review of Systems Review of Systems: the patient denies chest pain, palpitations, cough, sore throat, fevers, chills, sweats, nausea, vomiting, dysuria, urinary frequency or urgency, lightheadedness, dizziness, headache, memory loss, loss of consciousness, rash, imbalance, focal or generalized weakness, numbness or tingling in arms or legs, generalized arthralgias or myalgias, neck pain, or night sweats. The review of systems is otherwise negative other than for that already noted above, and at least 10 systems have been reviewed. Physical Exam Physical Exam: The patient is awake, alert and oriented 3, well developed and well nourished, normocephalic and atraumatic, lying in bed and in no acute distress. HEENT--PERRL, EOMI, mucous membranes and oropharynx dry. Neck--supple. No JVD. No bruits. Thyroid normal, trachea midline, no adenopathy. Heart--normal S1 and S2. No murmurs, rubs or gallops. Lungs--clear bilaterally, no respiratory distress, no accessory muscle use. Abdomen-- Distended. Tympanitic. generalized tenderness Extremities-- 2+ bilateral pretibial pitting edema Dermatologic--normal skin turgor, normal color, no abnormal lymph nodes, no rash. Neurologic--cranial nerves II through XII grossly intact. Rheumatologic--normal range of motion. Psychiatric--normal affect. Results & Data Results & Data Vital Signs (Past 12 Hours) Vital Signs Temp Pulse Pulse Resp BP BP Pulse Ox 01/06/23 17:00 57 L 14 98 01/06/23 16:50 57 L 17 98 01/06/23 16:45 57 L 17 98 01/06/23 16:45 97/60 L 01/06/23 16:40 59 L 20 98 01/06/23 16:30 59 L 17 98 01/06/23 16:30 116/59 L 01/06/23 16:20 58 L 18 98 01/06/23 16:16 57 L 18 99 01/06/23 16:16 106/68 01/06/23 16:10 57 L 15 99 01/06/23 16:00 57 L 17 99 01/06/23 16:00 103/71 01/06/23 15:50 57 L 16 98 01/06/23 15:45 60 18 99 01/06/23 15:45 117/61 01/06/23 15:40 59 L 18 100 01/06/23 15:30 60 15 99 01/06/23 15:20 60 15 98 01/06/23 15:15 62 19 97 01/06/23 15:15 99/60 L 01/06/23 16:28 58 L 01/06/23 15:10 60 15 96 01/06/23 15:01 60 15 98 01/06/23 15:01 102/58 L 01/06/23 15:00 60 13 97 01/06/23 14:50 58 L 13 99 01/06/23 14:48 94/58 L 01/06/23 14:48 58 L 15 97 01/06/23 14:46 59 L 15 98 01/06/23 14:46 76/63 L 01/06/23 14:40 59 L 17 97 01/06/23 14:30 58 L 13 96 01/06/23 14:20 59 L 14 97 01/06/23 14:16 96/62 L 01/06/23 14:16 59 L 15 96 01/06/23 14:10 59 L 16 97 01/06/23 14:00 97/61 L 01/06/23 14:27 58 L 18 96/62 L 98 01/06/23 14:00 60 18 98 01/06/23 13:50 59 L 17 97 01/06/23 13:48 100/62 01/06/23 13:48 59 L 16 97 01/06/23 13:40 58 L 17 98 01/06/23 13:36 61 14 98 01/06/23 13:20 60 16 100 01/06/23 13:10 59 L 16 99 01/06/23 13:00 59 L 18 97 01/06/23 12:50 59 L 18 97 01/06/23 12:40 57 L 18 97 01/06/23 12:30 57 L 16 97 01/06/23 12:21 100/56 L 01/06/23 12:21 57 L 17 01/06/23 12:20 59 L 21 01/06/23 12:19 58 L 26 H 01/06/23 12:20 57 L 16 97 01/06/23 12:20 57 L 16 97 01/06/23 12:26 58 L 01/06/23 12:09 57 L 18 100/56 L 97 01/06/23 12:11 36.8 C 60 20 62/34 L 97 O2 Del Method 01/06/23 17:00 01/06/23 16:50 01/06/23 16:45 01/06/23 16:45 01/06/23 16:40 01/06/23 16:30 01/06/23 16:30 01/06/23 16:20 01/06/23 16:16 01/06/23 16:16 01/06/23 16:10 01/06/23 16:00 01/06/23 16:00 01/06/23 15:50 01/06/23 15:45 01/06/23 15:45 01/06/23 15:40 01/06/23 15:30 01/06/23 15:20 01/06/23 15:15 01/06/23 15:15 01/06/23 16:28 01/06/23 15:10 01/06/23 15:01 01/06/23 15:01 01/06/23 15:00 01/06/23 14:50 01/06/23 14:48 01/06/23 14:48 01/06/23 14:46 01/06/23 14:46 01/06/23 14:40 01/06/23 14:30 01/06/23 14:20 01/06/23 14:16 01/06/23 14:16 01/06/23 14:10 01/06/23 14:00 01/06/23 14:27 Room Air 01/06/23 14:00 01/06/23 13:50 01/06/23 13:48 01/06/23 13:48 01/06/23 13:40 01/06/23 13:36 01/06/23 13:20 01/06/23 13:10 01/06/23 13:00 01/06/23 12:50 01/06/23 12:40 01/06/23 12:30 01/06/23 12:21 01/06/23 12:21 01/06/23 12:20 01/06/23 12:19 01/06/23 12:20 01/06/23 12:20 Room Air 01/06/23 12:26 01/06/23 12:09 Room Air 01/06/23 12:11 Room Air Laboratory Results Laboratory Results WBC 29.21 K/ul (4.8-10.8) H 01/06/23 12:30 RBC 3.02 M/uL (4.70-6.10) L 01/06/23 12:30 Hgb 11.9 g/dl (14.0-18.0) L 01/06/23 12:30 Hct 32.2 % (42.0-52.0) L 01/06/23 12:30 MCV 106.6 fL (80.0-100.0) H 01/06/23 12:30 MCH 39.4 pg (25.0-34.0) H 01/06/23 12:30 MCHC 37.0 g/dL (32.0-36.0) H 01/06/23 12:30 RDW Std Deviation 58.6 fL (36.4-46.3) H 01/06/23 12:30 RDW Coeff of Rohan 15.1 % (11.5-14.5) H 01/06/23 12:30 Plt Count 107 K/uL (130-400) L 01/06/23 12:30 Immature Gran % (Auto) 3.3 % 01/06/23 12:30 Neut % (Auto) 91.5 % 01/06/23 12:30 Lymph % (Auto) 1.9 % 01/06/23 12:30 Toole % (Auto) 3.0 % 01/06/23 12:30 Eos % (Auto) 0.1 % 01/06/23 12:30 Baso % (Auto) 0.2 % 01/06/23 12:30 Neut # (Auto) 26.72 K/uL (1.40-6.50) H 01/06/23 12:30 Lymph # (Auto) 0.56 K/uL (1.2-3.4) L 01/06/23 12:30 Toole # (Auto) 0.89 K/uL (0.11-0.59) H 01/06/23 12:30 Eos # (Auto) 0.02 K/uL (0-0.50) 01/06/23 12:30 Baso # (Auto) 0.06 K/uL (0-0.2) 01/06/23 12:30 Immature Gran # (Auto) 0.96 K/uL (0.01-0.20) H 01/06/23 12:30 Polychromasia 1+ 01/06/23 12:30 Anisocytosis Present 01/06/23 12:30 Echinocytes 2+ 01/06/23 12:30 PT 15.8 Seconds (9.0-12.0) H 01/06/23 12:30 INR 1.5 (0.9-1.1) H 01/06/23 12:30 APTT 30.5 Seconds (21.0-31.0) 01/06/23 12:30 PTT Ratio 1.1 01/06/23 12:30 VBG pH 7.35 (7.36-7.41) L 01/06/23 13:24 VBG pCO2 30 mmHg (38-50) L 01/06/23 13:24 VBG pO2 41 mmHg 01/06/23 13:24 VBG HCO3 17 mmol/L 01/06/23 13:24 VBG O2 Saturation 70.9 % 01/06/23 13:24 VBG Base Excess -7.7 mEq/L 01/06/23 13:24 Sodium 127 mmol/L (136-145) L 01/06/23 20:31 Potassium 5.9 mmol/L (3.5-5.1) H 01/06/23 20:31 Chloride 103 mmol/L (98-107) 01/06/23 20:31 Carbon Dioxide 16 mmol/L (21-32) L 01/06/23 20:31 Anion Gap 8 (3-11) 01/06/23 20:31 BUN 104 mg/dl (6-23) H 01/06/23 20:31 Creatinine 2.32 mg/dl (0.6-1.4) H 01/06/23 20:31 Est Cr Clr Drug Dosing 48.8 ml/min 01/06/23 20:31 Est GFR ( Amer) 35.8 ml/min 01/06/23 20:31 Est GFR (Non-Af Amer) 30.9 ml/min 01/06/23 20:31 BUN/Creatinine Ratio 44.8 (10-20) H 01/06/23 20:31 Glucose 174 mg/dl (70-99(Fasting)) H 01/06/23 20:31 POC Glucose 234 mg/dl (70-99) H 01/06/23 23:18 Lactate 1.9 mmol/L (0.4-2.0) 01/06/23 13:24 Calcium 7.3 mg/dl (8.6-10.3) L 01/06/23 20:31 Magnesium 3.2 mg/dl (1.7-2.4) H 01/06/23 14:28 Total Bilirubin 16.6 mg/dl (0.2-1.0) H 01/06/23 14:28 Direct Bilirubin 8.7 mg/dl (0-0.2) H 01/06/23 14:28 AST 226 U/L (13-39) H 01/06/23 14:28 ALT 222 U/L (7-52) H 01/06/23 14:28 Alkaline Phosphatase 125 U/L (34-104) H 01/06/23 14:28 Ammonia 31.0 umol/L (18-72) 01/06/23 14:28 Troponin I High Sens 7.9 pg/ml (0-20) 01/06/23 12:30 Total Protein 4.4 gm/dl (6.0-8.3) L 01/06/23 14:28 Albumin 1.9 gm/dl (3.4-5.0) L 01/06/23 14:28 Procalcitonin 2.26 ng/ml (0-0.5) H 01/06/23 12:30 Random Cortisol 22.51 mcg/dl 01/06/23 12:30 Urine Color Dark Yellow 01/06/23 Unknown Urine Appearance Cloudy (Clear) A 01/06/23 Unknown Urine pH 5.0 (4.5-7.5) 01/06/23 Unknown Ur Specific Norman 1.016 (1.000-1.030) 01/06/23 Unknown Urine Protein Negative (Negative) 01/06/23 Unknown Urine Glucose (UA) Negative (Negative) 01/06/23 Unknown Urine Ketones Negative (Negative) 01/06/23 Unknown Urine Blood Negative (Negative) 01/06/23 Unknown Urine Nitrite Positive (Negative) A 01/06/23 Unknown Urine Bilirubin 3+ (Negative) H 01/06/23 Unknown Urine Urobilinogen Negative (Negative) 01/06/23 Unknown Ur Leukocyte Esterase Trace (Negative) H 01/06/23 Unknown Urine WBC (Auto) 5-10 /hpf (0-5) H 01/06/23 Unknown Urine RBC (Auto) 0-4 /hpf (0-4) 01/06/23 Unknown U Hyaline Cast (Auto) 10-30 /lpf (0-5) H 01/06/23 Unknown U Epithel Cells (Auto) 5-10 /lpf (0-5) H 01/06/23 Unknown Urine Bacteria (Auto) 1+ (Negative) H 01/06/23 Unknown Urine Yeast Not Reportable 01/06/23 Unknown Ethyl Alcohol mg/dL < 10.0 mg/dl (<10.0) 01/06/23 12:30 SARS-CoV-2, RNA, NAAT NEGATIVE (NEGATIVE) 01/06/23 16:35 Blood Type A Positive 01/06/23 13:00 Antibody Screen NEGATIVE 01/06/23 13:00 Impressions Chest X-Ray 01/06/23 12:20 SINGLE VIEW CHEST CLINICAL HISTORY: Sepsis. FINDINGS: An AP, portable, upright chest radiograph is compared to study dated 12/31/2022. The cardiomediastinal silhouette is top normal for projection. There is elevation of the right hemidiaphragm with bibasilar atelectasis. No airspace consolidation or large pleural effusion is identified. No pneumothorax is seen. The bony thorax is grossly intact. IMPRESSION: No acute cardiopulmonary abnormality. ACT 112: Negative or not required by law. Electronically signed by: Angelo Gutierrez M.D. 01/06/2023 1:23 PM Abdomen/Pelvis CT 01/06/23 12:[address] WITHOUT CONTRAST CT DOSE: 1728.30 mGy.cm HISTORY: Bloating. Generalized abdominal pain, hx of ascites TECHNIQUE: Multiaxial CT images of the abdomen and pelvis were performed without contrast. A dose lowering technique was utilized adhering to the principles of ALARA. COMPARISON STUDY: Abdomen and pelvis CT 12/31/2022. FINDINGS: Right basilar linear densities consistent with subsegmental atelectasis or scarring. No pneumoperitoneum. No pneumatosis. No acute fractures identified. Moderate body wall edema which has progressed. Slightly heterogeneous and cirrhotic liver again noted. Hyperdense material within the gallbladder lumen favor small stones or sludge. The spleen remains mildly enlarged. The unenhanced adrenal glands, pancreas, and left kidney are unremarkable. There is a punctate stone within the lower pole of the right kidney, unchanged. No ureteral stones. No hydronephrosis. 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 The bladder is unremarkable. Moderate ascites, unchanged. Suboptimal evaluation for bowel pathology due to the lack of intravenous and oral contrast. However, there is no definite bowel wall thickening or obstruction. Normal appendix. A few colonic diverticula. No evidence for acute diverticulitis. Submucosal fat deposition within the proximal colon as can considered to be chronic. Mild mesenteric edema is noted. Normal caliber abdominal aorta. No re troperitoneal or pelvic lymphadenopathy. IMPRESSION: 1. Heterogeneous and cirrhotic liver with evidence for portal hypertension demonstrated by splenomegaly and upper abdominal varices. This is similar to the prior study. 2. Moderate ascites, unchanged. 3. Moderate body wall edema. This is slightly progressed. 4. Hyperdense material within the gallbladder. This favors small stones or sludge. 5. No definite bowel wall thickening or obstruction. 6. Normal appendix. 7. Stable right-sided nephrolithiasis. ACT 112: Negative or not required by law. Electronically signed by: Juan Francisco Boykin M.D. 01/06/2023 1:48 PM Code Status & VTE Plan Code Status full code VTE Prophylaxis Plan VTE Prophylaxis will be ordered: Yes PG Care Time/CCT Total # of Minutes Spent Total Time Spent with Patient: Total time spent is greater than 50% in coordination of care (as documented) at patient's floor/unit and/or counseling patient: Coding Level of Care Code 24275 INT INP/OBS CARE 3/75MIN Diagnoses Acute kidney injury superimposed on CKD N17.9; N18.9 Acute GI bleeding K92.2 Hypotension I95.9 Hypotension type: unspecified hypotension type Chronic liver failure K72.10 Jaundice R17 Ascites K70.31 Ascites type: due to alcoholic cirrhosis Alcohol use disorder F10.90 Alcoholic hepatitis with ascites K70.11 Acute hyponatremia E87.1 Elevated INR R79.1 Liver cirrhosis K74.60 Epigastric pain R10.13 Hyperkalemia E87.5 (3) Hypotension Hypotension type: unspecified hypotension type Qualified Code(s): I95.9 - H ypotension, unspecified (6) Ascites Ascites type: due to alcoholic cirrhosis Qualified Code(s): K70.31 - Alcoholic cirrhosis of liver with ascites
[2023-01-06] MEDS: ALBUMIN 25% 25 GM/100 ML VIAL IV SCH ×2 (18:43→20:34)
[2023-01-06 19:12] LABS: Appearance Urine Cloudy (Clear); Blood Urine Negative (Negative); Color Urine Dark Yellow; Glucose Urine UA Negative (Negative); Ketones Urine Negative (Negative); Leukocyte Esterase Urine Trace (Negative); Nitrite Urine Positive (Negative); Protein Urine Negative (Negative); Specific Gravity Urine 1.016 (1.000-1.030); Urobilinogen Urine Negative (Negative)
[2023-01-06 19:17] LABS: Bilirubin Urine 3+ (Negative)
[2023-01-06] MEDS ORDERED: OCTREOTIDE ACETATE 50 MCG in SYRINGE 9.5 ML IV STA (19:39)
[2023-01-06] MEDS ORDERED: NSS + 20MEQ KCL 20 MEQ/1,000 ML BAG IV SCH (19:39)
[2023-01-06] MEDS ORDERED: STAT IV STA ×2 (19:39→21:46)
[2023-01-06 19:52] LABS: Bacteria Urine Automated 1+ (Negative); RBC Urine Automated 0-4 /hpf (0-4)
[2023-01-06] MEDS ORDERED: SODIUM CHLORIDE 0.9% 1000ML 1,000 ML IV SCH (20:00)
[2023-01-06] MEDS: OCTREOTIDE ACETATE 500 MCG in DEXTROSE 5% 100 ML IV SCH (20:21)
[2023-01-06 21:04] LABS: BUN Creatinine Ratio 44.8 (10-20); Calcium 7.3 mg/dl (8.6-10.3); Creatinine Clr Calc Pharmacy 48.8 ml/min; Est GFR (African American) 35.8 ml/min; Est GFR (Non-African American) 30.9 ml/min; Potassium 5.9 mmol/L (3.5-5.1)
[2023-01-06] MEDS ORDERED: INSULIN HUMAN REGULAR PER UNIT 10 UNITS in SYRINGE 9.9 ML IV STA (21:43)
[2023-01-06] MEDS ORDERED: SODIUM ZIRCONIUM CYCLOSILICATE 10 GM PACKET PO ONE (21:45)
[2023-01-06] MEDS ORDERED: CALCIUM GLUCONATE 10% 1,000 MG in DEXTROSE 5% 50 ML IV ONE (21:46)
[2023-01-07] MEDS: OCTREOTIDE ACETATE 500 MCG in DEXTROSE 5% 100 ML IV SCH (04:32)
[2023-01-07 06:46] LABS: Hematocrit (blood only) 26.4 % (42.0-52.0); Hemoglobin 9.4 g/dl (14.0-18.0); Mean Corpuscular Hemoglobin 39.5 pg (25.0-34.0); Mean Corpuscular Hgb Conc 35.6 g/dL (32.0-36.0); Mean Corpuscular Volume 110.9 fL (80.0-100.0); Mean Platelet Volume 13.3 fL (9.4-12.4); Platelet Count 65 K/uL (130-400); RDW Coefficient of Variation 14.8 % (11.5-14.5); RDW Standard Deviation 59.3 fL (36.4-46.3); Red Blood Count 2.38 M/uL (4.70-6.10); White Blood Count 15.29 K/ul (4.8-10.8)
[2023-01-07 06:57] LABS: Acanthocytes 1+; Basophils # (auto) 0.02 K/uL (0-0.2); Basophils % (auto) 0.1 %; Echinocytes 2+; Immature Granulocytes # (auto) 0.25 K/uL (0.01-0.20); Immature Granulocytes % (auto) 1.6 %; Lymphocytes # (auto) 0.45 K/uL (1.2-3.4); Lymphocytes % (auto) 2.9 %; Macrocytosis Present; Monocytes # (auto) 0.32 K/uL (0.11-0.59); Monocytes % (auto) 2.1 %; Neutrophils # (auto) 14.25 K/uL (1.40-6.50); Neutrophils % (auto) 93.3 %; Platelet Estimate Decreased (Normal)
[2023-01-07 06:58] LABS: INR 1.6 (0.9-1.1); Partial Thromboplastin Ratio 1.2; Partial Thromboplastin Time 35.2 Seconds (21.0-31.0); Prothrombin Time 16.8 Seconds (9.0-12.0)
[2023-01-07 07:00] LABS: Albumin Globulin Ratio 1.2 (0.9-2); Albumin Level 2.5 gm/dl (3.4-5.0); BUN Creatinine Ratio 41.9 (10-20); Calcium 7.7 mg/dl (8.6-10.3); Creatinine Clr Calc Pharmacy 48.3 ml/min; Est GFR (African American) 35.5 ml/min; Est GFR (Non-African American) 30.6 ml/min; Globulin 2.1 gm/dl (2.5-4.0); Magnesium 3.3 mg/dl (1.7-2.4); Potassium 5.4 mmol/L (3.5-5.1); Total Protein 4.6 gm/dl (6.0-8.3)
[2023-01-07] MEDS ORDERED: ALBUMIN 25% 25 GM/100 ML VIAL IV ONE (09:11)
--- NOTE | 2023-01-07 09:39 | Nephrology Consultation ---
Date of Consultation January 07, 2023 Assessment & Plan (1) Acute kidney injury superimposed on CKD: * Type 2 HRS due to SBP, hypotension, 3rd spacing of volume * Agree w/ saline administration * Recommend scheduling SPA 25g IV TID until serum albumin > 3.0 * Octreotide as per primary service * Will start Midodrine 5 mg po TID w/ target to raise SBP ~ 15 mmHg (110 mmHg) * Monitor PRP (2) Hyperkalemia: * Mild hyperkalemia * Agree w/ holding Spironolactone at this time * Will provide one dose Lokelma this am (3) Chronic liver failure: * Alcoholic cirrhosis * Await Gastroenterology evaluation * Await paracentesis results * Agree w/ empiric Ceftriaxone therapy for SBP. No dose adjustment needed for NANCIE/CKD * Recommend avoiding large volume paracentesis and follow any volume removal w/ IV albumin History of Present Illness Reason for Consultation: NANCIE/CKD Attending Physician: Luz Juarez MD History of Present Illness Mr. Miller is a 52 year old white male who is seen at the request of the [facility] Hospitalist Service for evaluation of NANCIE/CKD. Patient was interviewed, medical records in the EMR were reviewed. HPI is summarized as follows: Mr. Miller's medical history is significant for alcoholic cirrhosis and liver failure, anasarca, alcoholic hepatitis with ascites, chronic hyponatremia, coagulopathy, and portal hypertension. He has CKD stage G3a/A1 (moderate impairment). Baseline Cr has been 1.5 w/ EGFR 53 cc/min. Abdominal CT this admission has revealed a small stone within the lower pole of the L kidney but no hydronephrosis. Urinalysis has been negative for blood or protein. Urine sediment has been acellular. Mr. Miller was hospitalized 12/31/22-01/01/23 for evaluation of alcoholic hepatitis w/ ascites and hematochezia. Paracentesis was not performed due to the holiday weekend. He was discharged to home with follow up by his PCP. Mr. Donald was seen by his PCP 01/06/23. He was noted to be hypotensive w/ SBP 60's and pronounced jaundice. Hospital readmission was advised. Admission laboratory studies revealed WBC 29.21, hemoglobin 11.9, hematocrit 32.2, sodium 126, potassium 6.0, creatinine 2.53, BUN 103, glucose 190, INR 1.5, total bilirubin 16.6, direct bilirubin 8.7, AST 226, ALT 222, albumin 1.9. Noncontrast abdominal CT revealed cirrhosis w/ portal hypertension and splenomegaly, moderate ascites, moderate body wall edema, and gallbladder stones/sludge. He was admitted to the hospitalist service. Volume resuscitation was provided w/ 1500 cc 0.9NS. Albumin and Octreotide have been ordered by the primary service. Empiric therapy for SBP has been provided with Ceftriaxone. Paracentesis and Gastroenterology consultation have been ordered. Allergies Allergy/AdvReac Type Severity Reaction Status Date / Time No Known Allergies Allergy Verified 01/06/23 10:06 Home Medications Medication Instructions Recorded Confirmed Type furosemide 20 mg tablet 20 mg PO QAM 30 days #30 tabs 12/24/22 01/06/23 Rx nadolol 20 mg tablet 20 mg PO DAILY 14 days #14 tabs 12/24/22 01/06/23 Rx pantoprazole 40 mg tablet,delayed 40 mg PO BID 60 days #120 tabs 12/24/22 01/06/23 Rx release prednisolone 15 mg/5 mL oral 40 mg (13.3333 mL) PO QAM #100 mL 12/24/22 01/06/23 Rx solution spironolactone 25 mg tablet 50 mg PO QAM 30 days #60 tabs 12/24/22 01/06/23 Rx naproxen sodium 220 mg tablet 220 mg PO DAILY PRN Pain 01/06/23 01/06/23 History Patient History Medical History Acute hyponatremia Alcohol use disorder Alcoholic hepatitis Alcoholic hepatitis with ascites Elevated INR Surgical History No pertinent past surgical history Family History Other Bladder cancer Myocardial infarction Denies family history of Ovarian cancer Prostate cancer Breast cancer Colorectal cancer Social History Smoking Status: Former smoker Smoking End Date: 13 years ago; Do You Dip or Chew Tobacco: Yes; Hx Alcohol Use: Yes Alcohol type: hard liquor Hx Substance Use: No (No longer uses substance.) Preferred Language: Setswana Communication Ability: Effective Visual Impairment: No Limitations Hearing Ability: Normal Ent Consultant Required: No Beliefs That Will Affect Care: None Current Living Situation: Family Current Living Situation Comment: lives with father current occupational status: unemployed Other Information That Helps Us Care for You: No Feels Safe at Home: Yes Safety Concerns: Feels Safe At This Time Childhood Exposure to Second-Hand Smoke: No Diet: other Diet Comment: eating very little caffeine: No Dental Care, Regularly: No Physical Activity Frequency: Does not Exercise Physical Activity Frequency Comment: limited by physical condition Assistive Devices: None Review of Systems Constitutional: no fever Eyes: no worsening vision Ear, Nose, Mouth, Throat: no problem reported Respiratory: no cough and no dyspnea Cardiovascular: no chest pain Gastrointestinal: + abdominal pain and + blood in stools Genitourinary: no dysuria, no urinary hesitancy or no hematuria Neurologic: no confusion Physical Exam Constitutional: + ill appearing (icteric); not in distress Eyes: sclerae not anicteric ENMT: external ear and nose normal, oropharynx normal Neck: trachea midline, no thyromegaly Respiratory: normal respiratory effort, lungs clear to auscultation Cardiovascular: Rate/Rhythm: regular rate and regular rhythm Extremities: + edema (1+ pretibial pitting edema) Gastrointestinal (Abdomen): Inspection/Auscultation: + abdomen distended and + hypoactive bowel sounds Percussion/Palpation: + abdomen tender; no guarding Results & Data Vital Signs (Past 12 Hours) Vital Signs Temp Pulse Pulse Resp BP Pulse Ox O2 Del Method 01/07/23 07:34 36.8 C 62 14 94/60 L 96 Room Air 01/07/23 03:16 36.4 C L 54 L 16 96/60 L 99 Room Air 01/06/23 22:00 57 L 01/06/23 22:51 36.4 C L 58 L 16 93/58 L 95 Room Air Laboratory Results Laboratory Tests 12/21/22 12/24/22 01/06/23 10:00 05:34 14:28 WBC Hgb Hct Plt Count Sodium Potassium Chloride Carbon Dioxide BUN Creatinine 1.36 1.49 H 2.53 H Glucose Urine Color Ur Specific Ragland Urine Protein Urine Blood Urine Bilirubin Urine RBC (Auto) 01/06/23 01/07/23 01/07/23 Unknown 06:07 06:07 WBC 15.29 H D Hgb 9.4 L Hct 26.4 L Plt Count 65 L Sodium 127 L Potassium 5.4 H Chloride 101 Carbon Dioxide 21 BUN 98 H Creatinine 2.34 H Glucose 179 H Urine Color Dark Yellow Ur Specific Ragland 1.016 Urine Protein Negative Urine Blood Negative Urine Bilirubin 3+ H Urine RBC (Auto) 0-4 Laboratory Tests 01/06/23 01/07/23 01/07/23 14:28 06:07 06:07 INR 1.6 H Direct Bilirubin 8.7 H AST 177 H ALT 192 H Alkaline Phosphatase 98 Albumin 2.5 L Diagnostic Findings 01/06/23 CXR: An AP, portable, upright chest radiograph is compared to study dated 12/31/2022. The cardiomediastinal silhouette is top normal for projection. There is elevation of the right hemidiaphragm with bibasilar atelectasis. No airspace consolidation or large pleural effusion is identified. No pneumothorax is seen. The bony thorax is grossly intact. 01/06/[address]: Right basilar linear densities consistent with subsegmental atelectasis or scarring. No pneumoperitoneum. No pneumatosis. No acute fractures identified. Moderate body wall edema which has progressed. Slightly heterogeneous and cirrhotic liver again noted. Hyperdense material within the gallbladder lumen favor small stones or sludge. The spleen remains mildly enlarged. The unenhanced adrenal glands, pancreas, and left kidney are unremarkable. There is a punctate stone within the lower pole of the right kidney, unchanged. No ureteral stones. No hydronephrosis. 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 The bladder is unremarkable. Moderate ascites, unchanged. Suboptimal evaluation for bowel pathology due to the lack of intravenous and oral contrast. However, there is no definite bowel wall thickening or obstruction. Normal appendix. A few colonic diverticula. No evidence for acute diverticulitis. Submucosal fat deposition within the proximal colon as can considered to be chronic. Mild mesenteric edema is noted. Normal caliber abdominal aorta. No retroperitoneal or pelvic lymphadenopathy. PG Care Time/CCT Total # of Minutes Spent Total Time Spent with Patient: Total time spent is greater than 50% in coordination of care (as documented) at patient's floor/unit and/or counseling patient: Coding Level of Care Code 89039 IN/OBS CONSULT LVL 5,80M Diagnoses Acute kidney injury superimposed on CKD N17.9; N18.9 Hyperkalemia E87.5 Chronic liver failure K72.10
[2023-01-07] MEDS ORDERED: SODIUM ZIRCONIUM CYCLOSILICATE 10 GM PACKET PO ONE (10:00)
--- NOTE | 2023-01-07 10:25 | Gastrointestinal Consultation ---
Date of Consultation January 07, 2023 Assessment & Plan (1) Chronic liver failure: (2) Ascites: (3) Jaundice: Plan Discussed case with Dr. Yin who advised on plan. This is a sick gentleman with history of liver failure in the setting of ETOH cirrhosis. Currently not using ETOH. His MELD score at this time is 34. - proceed with paracentesis as planned. - continue with ceftriaxone 2000mg IV daily. - continue with protonix and octreotide drips. - recommend 2 gm low sodium diet. - discussed continued ETOH cessation with the patient. - Given his overall condition, would recommend transfer to Liver center for further evaluation/management. MELD score of 34 has an estimated 52.6% 3 month mortality. Patient tells me he would be agreeable with this. History of Present Illness Reason for Consultation: Liver failure / GIB Requesting Physician: Alfred Kraus MD Attending Physician: Luz Juarez MD History of Present Illness Patient is a 52 year old male with a past medical history including alcoholic cirrhosis and liver failure, anasarca, alcoholic hepatitis with ascites, chronic hyponatremia, coagulopathy, CKD stage III, portal hypertension who presented to the emergency department 01/06/23 with worsening abdominal distention and abdominal pain. He tells me that his symptoms have been ongoing and in the past hepatology evaluation was recommended. He tells me has an appointment with [facility] but not until the end of January. He tells me he was sent to the ED at the advice of his pcp due to hypotension. He denies any current ETOH use. He tells me that his last use was December 17. Prior to this he has a 13 year history of drinking at least a 1/5 of whiskey, 3-4 Four Raymundo's, and a few beers. Patient was recently seen in our office on 12/30/22 by Kaylene Ortiz PA-C and after recieving outpatient labs was advised to go to the ED for worsening functioning. It was advised that he be transferred at that time to liver center given his overall condition. He was admitted here at that time and seen [facility] as inpatient. He was discharged home afterwards. He tells me he has had ongoing issue now for weeks. He was prescribed prednisolone as outpatient after a recent admission but tells me he is not sure he had not used more than one dose of this. He admits to 5 bowel movements daily. he denies melena. He tells me in the past he has had rectal bleeding but no rectal bleeding issues currently or recently. He does admit to some heartburn symptoms. he denies any nausea, vomiting, dysphagia. Significant abnormal laboratories: WBC 29.21, hemoglobin 11.9, hematocrit 32.2, sodium 126, potassium 6.0, creatinine 2.53, BUN 103, glucose 190, INR 1.5, total bilirubin 16.6, direct bilirubin 8.7, AST 226, ALT 222, albumin 1.9. CT scan of abdomen pelvis shows cirrhosis, portal hypertension, splenomegaly, upper abdominal varices, and moderate ascites, moderate body wall edema, and gallbladder stones/sludge. Current MELD score is 34. DF is 48. Allergies Allergy/AdvReac Type Severity Reaction Status Date / Time No Known Allergies Allergy Verified 01/06/23 10:06 Home Medications Medication Instructions Recorded Confirmed Type furosemide 20 mg tablet 20 mg PO QAM 30 days #30 tabs 12/24/22 01/06/23 Rx nadolol 20 mg tablet 20 mg PO DAILY 14 days #14 tabs 12/24/22 01/06/23 Rx pantoprazole 40 mg tablet,delayed 40 mg PO BID 60 days #120 tabs 12/24/22 01/06/23 Rx release prednisolone 15 mg/5 mL oral 40 mg (13.3333 mL) PO QAM #100 mL 12/24/22 01/06/23 Rx solution spironolactone 25 mg tablet 50 mg PO QAM 30 days #60 tabs 12/24/22 01/06/23 Rx naproxen sodium 220 mg tablet 220 mg PO DAILY PRN Pain 01/06/23 01/06/23 History Patient History Medical History Acute hyponatremia Alcohol use disorder Alcoholic hepatitis Alcoholic hepatitis with ascites Elevated INR Surgical History No pertinent past surgical history Family History Other Bladder cancer Myocardial infarction Denies family history of Ovarian cancer Prostate cancer Breast cancer Colorectal cancer Social History Smoking Status: Former smoker Smoking End Date: 13 years ago; Do You Dip or Chew Tobacco: Yes; Hx Alcohol Use: Yes Alcohol type: hard liquor Hx Substance Use: No (No longer uses substance.) Preferred Language: Persian Communication Ability: Effective Visual Impairment: No Limitations Hearing Ability: Normal Cosmetic Consultant Required: No Beliefs That Will Affect Care: None Current Living Situation: Family Current Living Situation Comment: lives with father current occupational status: unemployed Other Information That Helps Us Care for You: No Feels Safe at Home: Yes Safety Concerns: Feels Safe At This Time Childhood Exposure to Second-Hand Smoke: No Diet: other Diet Comment: eating very little caffeine: No Dental Care, Regularly: No Physical Activity Frequency: Does not Exercise Physical Activity Frequency Comment: limited by physical condition Assistive Devices: None Review of Systems Review of Systems: All systems reviewed & are unremarkable except as noted in HPI & below Constitutional: + fatigue and + malaise Respiratory: + dyspnea Physical Exam Constitutional: WD/WN, vitals as above Respiratory: normal respiratory effort, lungs clear to auscultation Cardiovascular: RRR, lower extremity edema b/l Gastrointestinal (Abdomen): ascites noted, normal bowel sounds, abdomen distended. nontender. Skin: Jaundiced. Psychiatric: Orientation: alert and oriented x 3 Results & Data Vital Signs (Past 12 Hours) Vital Signs Temp Pulse Resp BP Pulse Ox O2 Del Method 01/07/23 07:34 98.2 F 62 14 94/60 L 96 Room Air 01/07/23 03:16 97.5 F L 54 L 16 96/60 L 99 Room Air 01/06/23 22:51 97.5 F L 58 L 16 93/58 L 95 Room Air PG Care Time/CCT Total # of Minutes Spent Total Time Spent with Patient: Total time spent is greater than 50% in coordination of care (as documented) at patient's floor/unit and/or counseling patient: Coding Level of Care Code 87230 IN/OBS CONSULT LVL 3,45M Diagnoses Chronic liver failure K72.10 Ascites K70.31 Ascites type: due to alcoholic cirrhosis Jaundice R17 Time Spent (min) 50 (2) Ascites Ascites type: due to alcoholic cirrhosis Qualified Code(s): K70.31 - Alcoholic cirrhosis of liver with ascites
[2023-01-07] MEDS: PANTOprazole 40 MG in SYRINGE 0 ML IV SCH ×2 (10:41→20:38)
[2023-01-07] MEDS: LACTULOSE SYRUP 30 GM/45 ML UDP PO SCH (10:41)
[2023-01-07] MEDS: ALBUMIN 25% 25 GM/100 ML VIAL IV SCH ×2 (13:14→21:40)
[2023-01-07] MEDS: MIDODRINE HCL 2.5 MG TAB PO SCH ×2 (13:14→16:07)
[2023-01-07] MEDS ORDERED: cefTRIAXone SODIUM 2,000 MG in DEXTROSE 5% 50 ML IV SCH (14:00)
--- NOTE | 2023-01-07 15:27 | Ultrasound Report ---
ULTRASOUND-GUIDED DIAGNOSTIC AND THERAPEUTIC PARACENTESIS: HISTORY: Ascites. Procedure: The procedure and its risks, benefits and alternatives were discussed with the patient and written informed consent was obtained. Preliminary ultrasound of the abdomen was performed to determ ine a safe needle entry site. The right lower quadrant was prepped and draped in the usual sterile fashion. 1% Lidocaine was used f or local anesthesia. A paracentesis needle-sheath was inserted into the peritoneal space using ultras ound guidance. The needle was removed and the sheath was connected to tubing and a vacuum suction dev ice. A total of 3 liters of yellow ascites was aspirated. The sheath was removed and a sterile dressi ng applied. The patient tolerated the procedure well and there were no immediate complications. IMPRESSION: Ultrasound-guided diagnostic and therapeutic paracentesis with aspiration of 3 liters of ascites. 1 L was sent to the laboratory at the request of the referring physician. ACT 112: Negative or not required by law. Electronically signed by: Juan Francisco Boykin M.D. 01/07/2023 3:26 PM
[2023-01-07 16:20] LABS: Albumin Peritoneal Fluid < 1.5 gm/dl
[2023-01-07 16:25] LABS: Glucose Peritoneal Fluid 179 mg/dl; LDH Peritoneal Fluid 38 U/L; Total Protein Peritoneal Fluid < 3.0 gm/dl
[2023-01-07 17:29] LABS: Appearance Peritoneal Fluid Clear; Color Peritoneal Fluid Yellow; Lymphocytes, Fluid 11 %; Mono,Macrophage,Mesothelial 78 %; Neutrophils, Fluid 11 %; RBC Peritoneal Fluid Auto < 2000 /uL; WBC Peritoneal Fluid Auto 123 /ul (0-300)
--- NOTE | 2023-01-07 21:57 | Discharge Summary ---
Discharge Summary Date of Service January 07, 2023 Admission HPI Per Admitting Provider the patient is a 52-year-old male with a past medical history including alcoholic cirrhosis and liver failure, anasarca, alcoholic hepatitis with ascites, chronic hyponatremia, coagulopathy, CKD stage III, portal hypertension. He presents to the emergency department with worsening abdominal distention and pain, and bright red blood per rectum along with gross hematuria. Significant abnormal laboratories: WBC 29.21, hemoglobin 11.9, hematocrit 32.2, sodium 126, potassium 6.0, creatinine 2.53, BUN 103, glucose 190, INR 1.5, total bilirubin 16.6, direct bilirubin 8.7, AST 226, ALT 222, albumin 1.9. CT scan of abdomen pelvis shows cirrhosis, portal hypertension, hyper splenomegaly, upper abdominal varices, moderate ascites unchanged, moderate body wall edema, and gallbladder stones/sludge From the ED the patient received the following: Normal saline total 1500 mL for fluid resuscitation with systolic blood pressure had dropped to the 60s, and ceftriaxone 2 g IV Principal Dx & Hospital Course #1 = Principal Diagnosis (1) Liver cirrhosis: Presented with acutely decompensated alcoholic liver cirrhosis after recent admission for alcoholic hepatitis found to have portal hypertension development of and worsening abdominal pain concerning for possible SBP-WBC count elevated at 29,000 and now improving down to 15, afebrile INR 1.6, platelets low in the 60s, With ascites, hyponatremia, and renal failure, hypotension Recent hepatitis A/B/C panel negative, has not yet seen hepatology or had any other work-up for his cirrhosis including EGD, AFP, liver MRI, other serologies MELD score quite elevated at 34 giving 52.6% mortality risk over the next 3 months Patient will need paracentesis-plan for today for diagnostic and therapeutic purposes Holding diuretics due to hepatorenal syndrome, hold nadolol due to hypotension and acute decompensation Continue ceftriaxone 2 g IV daily for suspected SBP Continue IV albumin Start lactulose Consult gastroenterology appreciated-recommends transfer to liver transplant center-accepted by Dr. Bhagat of the internal medicine service with Dr. Amado from transplant hepatology patient reports that his last alcohol intake was December 17 Follow CBC, CMP, INR (2) Hepatorenal syndrome: Presented with hyperkalemia/acute kidney injury on CKD- Potassium 6.0 on admission, with creatinine 2.53 and sodium 126 With type II HRS with SBP, hypotension, and third spacing with ascites Appreciate nephrology consultation Start albumin 25 g IV 3 times daily, received normal saline x2 L initially For hyperkalemia, was given D50 and 10 units regular insulin IV protocol x2, along with Lokelma x2 doses along with lactulose Hold Lasix and spironolactone Start midodrine 5 Mg p.o. 3 times daily, was on octreotide drip which will be held for transfer Creatinine stable today, blood pressures are improved, sodium up slightly to 127, potassium down to 5.4 Follow BMP (3) Hypotension: Severe with blood pressure in the 60s over 40s on presentation, possibly secondary to sepsis from SBP, but also could be intravascular volume depletion from diuretics as well as recently started on nadolol Treating SBP with antibiotics Now improving with holding diuretics and nadolol, giving IV fluids and IV al bumin Starting midodrine 5 Mg p.o. 3 times daily Follow (4) SBP (spontaneous bacterial peritonitis): leukocytosis of 29 K on admission as above with abdominal pain Continue ceftriaxone as above Awaiting paracentesis (5) Hyperkalemia: As above Improving, continue Lokelma (6) Acute GI bleeding: rectal bleeding/presence of upper abdominal varices-with small to moderate amounts of BRBPR, no melena, no hematemesis Initially started on Protonix 40 mg IV every 12 hours and octreotide drip but can hold octreotide drip for transport Continue IV Protonix Okay to advance diet to low-sodium coagulopathy- INR 1.5,-was given 1 dose of vitamin K 10 mg IV (7) Acute hyponatremia: Above, secondary to hepatorenal syndrome, cirrhosis with volume overload Sodium stable at 127 (8) Alcohol use disorder: Last alcohol use December 17 He is committed to abstaining from alcohol due to need for likely liver transplant Plan Disposition-excepted in transfer to hepatology and hospitalist service at [facility] in [place], accepting physician is Dr. Bhagat Discharge Exam Constitutional + ill appearing and comfortable; no altered mental status Eyes + scleral abnormality (Icterus) Respiratory normal respiratory effort, lungs clear to auscultation Cardiovascular Rate/Rhythm: regular rate and regular rhythm Heart Sounds: no murmur Extremities: + edema (3+ pitting edema of the legs bilaterally to the knees) Gastrointestinal (Abdomen) Inspection/Auscultation: + abdomen distended and normal bowel sounds; caput medusae absent Percussion/Palpation: + abdomen tender (Mild in right side); no guarding Skin + jaundice Neurologic CN's II-XI intact bilaterally and awake; no focal motor deficits Psychiatric A+Ox3, euthymic affect Updated Medication List Medication Instructions Recorded Confirmed Type furosemide 20 mg tablet 20 mg PO QAM 30 days #30 tabs 12/24/22 01/06/23 Rx nadolol 20 mg tablet 20 mg PO DAILY 14 days #14 tabs 12/24/22 01/06/23 Rx pantoprazole 40 mg tablet,delayed 40 mg PO BID 60 days #120 tabs 12/24/22 01/06/23 Rx release spironolactone 25 mg tablet 50 mg PO QAM 30 days #60 tabs 12/24/22 01/06/23 Rx lactulose 10 gram/15 mL (15 mL) 30 g (45 mL) PO DAILY #473 mL 01/07/23 Rx oral solution midodrine 2.5 mg tablet 5 mg PO TID@0800,1200,1700 #90 tabs 01/07/23 Rx Hospital Stay Data Consultations 01/06/23 15:39 ED Decision to Admit Stat 01/06/23 19:39 Consult Gastroenterology Routine 01/07/23 09:18 Consult Nephrology Routine 01/07/23 11:54 Burn CD for patient Stat Diagnostic Imagining Performed 01/06/23 12:25 CT abd pelvis wo con Stat 01/07/23 09:06 IR paracentesis abd w/img US Routine Pending Results Patient Have Any Pending Studies at Discharge: Yes (Ascites studies) Discharge Instructions Given to Patient (Per Discharging Provider) Transferred to [facility] Total Time Total Time Spent Total Time Spent (In Minutes): 75 minutes Coding Level of Care Code 32047 INP/OBS DISCH >30 MIN Diagnoses Liver cirrhosis K74.60 Hepatorenal syndrome K76.7 Hypotension I95.9 Hypotension type: unspecified hypotension type SBP (spontaneous bacterial peritonitis) K65.2 Hyperkalemia E87.5 Acute GI bleeding K92.2 Acute hyponatremia E87.1 Alcohol use disorder F10.90
[2023-01-08] MEDS: ALBUMIN 25% 25 GM/100 ML VIAL IV SCH (05:47)
--- NOTE | 2023-01-08 06:15 | Electrocardiogram Report ---
Test Reason : Blood Pressure : / mmHG Vent. Rate : 059 BPM Atrial Rate : 059 BPM P-R Int : 168 ms QRS Dur : 092 ms QT Int : 392 ms P-R-T Axes : 047 011 027 degrees QTc Int : 388 ms Sinus bradycardia Low voltage QRS Incomplete right bundle branch block Cannot rule out Anterior infarct , age undetermined Abnormal ECG When compared with ECG of 31-DEC-2022 15:52, No significant change was found Confirmed by Elia Faustin ([id number]) on 01/08/2023 6:14:26 AM Referred By: Confirmed By:Elia Faustin
[2023-01-08 07:02] LABS: Hematocrit (blood only) 24.1 % (42.0-52.0); Hemoglobin 8.6 g/dl (14.0-18.0); Mean Corpuscular Hemoglobin 39.3 pg (25.0-34.0); Mean Corpuscular Hgb Conc 35.7 g/dL (32.0-36.0); Mean Platelet Volume 13.1 fL (9.4-12.4); Platelet Count 45 K/uL (130-400); RDW Coefficient of Variation 14.6 % (11.5-14.5); Red Blood Count 2.19 M/uL (4.70-6.10); White Blood Count 9.61 K/ul (4.8-10.8)
[2023-01-08 07:08] LABS: Albumin Globulin Ratio 1.4 (0.9-2); Albumin Level 2.6 gm/dl (3.4-5.0); BUN Creatinine Ratio 41.8 (10-20); Bilirubin,Total 20.7 mg/dl (0.2-1.0); Calcium 7.7 mg/dl (8.6-10.3); Est GFR (African American) 34.9 ml/min; Est GFR (Non-African American) 30.1 ml/min; Globulin 1.8 gm/dl (2.5-4.0); Magnesium 3.4 mg/dl (1.7-2.4); Total Protein 4.4 gm/dl (6.0-8.3)
[2023-01-08 07:12] LABS: Basophils # (auto) 0.01 K/uL (0-0.2); Basophils % (auto) 0.1 %; Eosinophils # (auto) 0.01 K/uL (0-0.50); Eosinophils % (auto) 0.1 %; INR 1.6 (0.9-1.1); Immature Granulocytes # (auto) 0.11 K/uL (0.01-0.20); Immature Granulocytes % (auto) 1.1 %; Lymphocytes # (auto) 0.29 K/uL (1.2-3.4); Monocytes # (auto) 0.27 K/uL (0.11-0.59); Monocytes % (auto) 2.8 %; Neutrophils # (auto) 8.92 K/uL (1.40-6.50); Neutrophils % (auto) 92.9 %; Partial Thromboplastin Ratio 1.4; Partial Thromboplastin Time 39.1 Seconds (21.0-31.0); Prothrombin Time 17.1 Seconds (9.0-12.0)
[2023-01-08] MEDS: MIDODRINE HCL 2.5 MG TAB PO SCH ×2 (08:21→13:02)
[2023-01-08] MEDS: LACTULOSE SYRUP 30 GM/45 ML UDP PO SCH (08:21)
[2023-01-08] MEDS: PANTOprazole 40 MG in SYRINGE 0 ML IV SCH (08:21)
== END 2023-01-08 13:39 | disposition short-term general hospital (02) | DRG 871 ==
LOC: ED 12:08 → 2E 18:03 → SUATTDRO 18:03 → 2E 18:56